=== PATIENT | female | born 1945 | race Caucasian/White ===

== ENCOUNTER 2022-11-10 13:20 | Outpatient (OUT) | payer MEDICARE, OTHER, SELFPAY ==
--- NOTE | 2022-11-10 13:58 | MM_ITS ---
Patient: RAMU MAR Exam Date: 11/10/2022 : 1945 Gender:F Ordering : DR Merlene Abbott M.D. Admission #: [id number] Family : Order #: [id number] CLICK HERE TO VIEW EXAM RADIOLOGY REPORT PROCEDURE: MM TOMOSYNTHESIS SCREENING BI COMPARISON: MG MAMM SCREEN 3D BENY CAD, 10/29/2021. MG MAMM SCREEN 3D BENY CAD, 10/22/2020. MG MAMM SCREEN BENY W CAD, 07/18/2019. MG MAMM BENY SCRN W CAD DIG, 03/16/2013. INDICATIONS: Screening mammogram Z12.31 Calculator Name NCI Breast Cancer Risk Assessment Tool 5 Year Breast Cancer Risk 3.70% Lifetime Breast Cancer Risk 7.90% Personal Breast Cancer No Personal Ovarian Cancer No Treatments None Family Cancers Sister with breast cancer at age 50; Aunt-maternal with breast cancer at age ~40; Aunt-paternal with breast cancer at age ~40; Brother with esophageal cancer at age 50. LOCATION: [facility] BREAST COMPOSITION: Scattered areas fibroglandular density. FINDINGS: DIAGNOSTIC CATEGORY 2--BENIGN FINDING: RIGHT BREAST: No significant suspicious finding. Scattered benign-appearing calcifications are present. No significant change has occurred. LEFT BREAST: No significant suspicious finding. Scattered benign-appearing calcifications are present. No significant change has occurred. RECOMMENDATIONS: ROUTINE MAMMOGRAM AND CLINICAL EVALUATION IN 12 MONTHS. PLEASE NOTE: A NORMAL MAMMOGRAM DOES NOT EXCLUDE THE POSSIBILITY OF BREAST CANCER. A CLINICALLY SUSPICIOUS PALPABLE LUMP SHOULD BE BIOPSIED. Dictated by: John Rdz M.D. on 11/10/2022 at 14:58 Approved by: John Rdz M.D. on 11/10/2022 at 15:00
== END 2022-11-10 13:21 | disposition home or self-care (01) ==
LOC: MAMMO 13:20
PROVIDERS: PCP Family Medicine; Visit Provider Family Medicine
DX: Z12.31 Encounter for screening mammogram for malignant neoplasm of breast (principal); Z80.3 Family history of malignant neoplasm of breast
CPT/HCPCS: 77063; 77067

== ENCOUNTER 2022-12-07 17:30 | Emergency (ER) | payer MEDICARE, OTHER, SELFPAY ==
[2022-12-07 17:37] VITALS: BP 169/70; PULSE 91; RESP 18; TEMP 36.9; O2SAT 97; BMI 38.4
--- NOTE | 2022-12-07 17:53 | PC.NURSE ---
PT STATES CLEANING ON THURSDAY AND WOKE UP WITH PAIN TO RIGHT NECK AND ARM
--- NOTE | 2022-12-07 18:07 | ED.UPPEXIN1 ---
Documented by User: LAUREN Suarez 12/07/22 18:17 HPI - Extremity Injury (Upper) General Chief Complaint: Extremity Injury, Upper Stated Complaint: Upper PAIN Right Side Time Seen by Provider: 12/07/22 17:44 Mode of arrival: walk-in Limitations: no limitations History of Present Illness HPI narrative: patient is a 77-year-old female with a history of diabetes and daily baby aspirin use, presents to the Emergency Room with concerns of right shoulder pain. Patient states symptoms started on Thursday after cleaning multiple cabinets reaching back. Patient notes pain over the right lateral shoulder with some pain radiating to her neck. She denies any chest pain or shortness of breath. Symptoms are notable be worse with abduction of the shoulder. She denies any fall trauma or injury. She denies any fevers or chills. She tried her spouse's baclofen without notable relief. Patient is established with local orthopedics. MD complaint: injury to: Reports right and shoulder Onset (ago): day(s) (3) Other injuries: Reports none Context: Reports other (denies injury, reports overuse right arm cleaning cabinets above her head and reaching backwards) Associated symptoms: Denies heard/felt popping sensation Related Data Previous Rx's Medication Instructions Recorded ibuprofen 600 mg tablet 600 mg PO TID PRN pain #30 tabs 12/07/22 Allergies Allergy/AdvReac Type Severity Reaction Status Date / Time Unable to Assess Allergy Verified 12/07/22 17:42 Review of Systems ROS Constitutional Denies: fever or chills Eyes Denies: change in vision Ears, nose, mouth, and throat Reports: neck pain; Denies: throat pain or throat swelling Cardiovascular Denies: chest pain or palpitations Respiratory Denies: shortness of breath or cough Gastrointestinal Denies: abdominal pain, nausea or vomiting Musculoskeletal Reports: neck pain and extremity pain (right lateral shoulder); Denies: extremity swelling Integumentary/Breast Denies: rash Neurological Denies: headache Psychiatric Denies: anxiety PFSH PFSH Social History Smoking status: Never smoker Exam Narrative Exam Narrative: Nurse's notes and vital signs reviewed. Patient is not hypoxic. General:? The patient appears well and in no apparent distress.? Patient is resting comfortably on cart. Skin:? Warm, dry, no pallor noted. Head:? Normocephalic, atraumatic Eye:? Normal conjunctiva Respiratory:? Patient is in no distress Musculoskeletal:? The rright shoulder shows no obvious deformity.? There was no significant swelling noted.positive tenderness to the AC joint which was mild. No palpable crepitus.?? The patient had limited ROM due to pain with abduction past ninety degrees and positive painful arc..?? The patient had tenderness noted to the right trapezius,, ac joint and lateral shoulder to the deltoid insertion. She denied pain into the forearm wrist or hand. She denies any numbness or tingling. Positive Neer and Hawkings noted,fires rotator cuff but limited strength testing secondary to pain, ultimately it is five over five. No pain with stressing biceps or triceps. 5/5. Equal financial controller strength noted The patient had no tenderness in the anatomical snuff box.? The patient had no pain with axial loading of the thumb.? Pulses are intact at brachial and radial 2+.? There was no deficit at the elbow. The patient has normal capillary refill to all distal digits. The patient has no evidence of cyanosis or mottling. The patient is able to flex and extend all digits without difficulty. Neurological:? A&O x4, normal sensory, normal motor Psychiatric:? Cooperative Constitutional Vital Signs, click to edit/add: Last Vital Signs Temp 98.5 F 12/07/22 17:37 Pulse 91 H 12/07/22 17:37 Resp 18 12/07/22 17:37 BP 169/70 H 12/07/22 17:37 Pulse Ox 97 12/07/22 17:37 O2 Del Method Room Air 12/07/22 17:37 Course Vital Signs Vital signs: Vital Signs Temperature 98.5 F 12/07/22 17:37 Pulse Rate 91 H 12/07/22 17:37 Respiratory Rate 18 12/07/22 17:37 Blood Pressure 169/70 H 12/07/22 17:37 Pulse Oximetry 97 12/07/22 17:37 Oxygen Delivery Method Room Air 12/07/22 17:37 Temperature 98.5 F 12/07/22 17:37 Pulse Rate 91 H 12/07/22 17:37 Respiratory Rate 18 12/07/22 17:37 Blood Pressure 169/70 H 12/07/22 17:37 Pulse Oximetry 97 12/07/22 17:37 Oxygen Delivery Method Room Air 12/07/22 17:37 MDM - Extremity Injury (Upper) MDM Narrative Medical decision making narrative: discussed patient's overuse likely bursitis with reproducible pain on shoulder range of motion and exam. Tenderness to the before meals joint, patient denies fall trauma injury or fever. We discussed anti-inflammatory use over to Titus's given her history of diabetes and insulin use. Patient reports her sugars have been doing okay. Patient without clinical exam findings concerning for infection. We discussed gentle passive range of motion exercises to encourage range of motion of the shoulder and avoid a frozen shoulder. Patient agreeable to Toradol IM here, Norflex injection and will start a regimen of Tylenol and to try and 600 mg moting with food pending follow-up with her orthopedic clinic. x-ray not clinically indicated today and patient agreeable The patient is to followup with primary care physician in next 2-3 days or to return to the emergency department should any of the signs or symptoms worsen or new symptoms develop. Patient had questions answered. The patient agrees with the following Diagnosis and Treatment plan and the patient will be discharged home.? Discharge Plan Discharge Chief Complaint: Extremity Injury, Upper Clinical Impression: Acute pain of right shoulder, Acute bursitis of right shoulder Patient Disposition: Home, Self-Care Time of Disposition Decision: 18:08 Condition: Good Mode of Transportation: Private Vehicle Prescriptions / Home Meds: New ibuprofen 600 mg tablet 600 mg PO TID PRN (Reason: pain) Qty: 30 0RF Instructions: Shoulder Bursitis (ED) Stand Alone Forms: Portal Instructions Referrals: Merlene Abbott MD [Primary Care Provider] - 1 week Anthony Shabazz PA [Emergency Midlevel Provider] - 12/10/22 Discharge Date/Time: 12/07/22 18:23 Documented by User: Shnaice Dominguez MD 12/08/22 20:38 HPI - Extremity Injury (Upper) General Chief Complaint: Extremity Injury, Upper Stated Complaint: Upper PAIN Right Side Time Seen by Provider: 12/07/22 17:44 Related Data Previous Rx's Medication Instructions Recorded ibuprofen 600 mg tablet 600 mg PO TID PRN pain #30 tabs 12/07/22 Allergies Allergy/AdvReac Type Severity Reaction Status Date / Time Unable to Assess Allergy Verified 12/07/22 17:42 PFSH PFSH Social History Smoking status: Never smoker Exam Constitutional Vital Signs, click to edit/add: Last Vital Signs Temp 98.5 F 12/07/22 17:37 Pulse 91 H 12/07/22 17:37 Resp 18 12/07/22 17:37 BP 169/70 H 12/07/22 17:37 Pulse Ox 97 12/07/22 17:37 O2 Del Method Room Air 12/07/22 17:37 Course Vital Signs Vital signs: Vital Signs Temperature 98.5 F 12/07/22 17:37 Pulse Rate 91 H 12/07/22 17:37 Respiratory Rate 18 12/07/22 17:37 Blood Pressure 169/70 H 12/07/22 17:37 Pulse Oximetry 97 12/07/22 17:37 Oxygen Delivery Method Room Air 12/07/22 17:37 Temperature 98.5 F 12/07/22 17:37 Pulse Rate 91 H 12/07/22 17:37 Respiratory Rate 18 12/07/22 17:37 Blood Pressure 169/70 H 12/07/22 17:37 Pulse Oximetry 97 12/07/22 17:37 Oxygen Delivery Method Room Air 12/07/22 17:37 MDM - Extremity Injury (Upper) MDM Narrative Medical decision making narrative: discussed patient's overuse likely bursitis with reproducible pain on shoulder range of motion and exam. Tenderness to the before meals joint, patient denies fall trauma injury or fever. We discussed anti-inflammatory use over to Qureshi's given her history of diabetes and insulin use. Patient reports her sugars have been doing okay. Patient without clinical exam findings concerning for infection. We discussed gentle passive range of motion exercises to encourage range of motion of the shoulder and avoid a frozen shoulder. Patient agreeable to Toradol IM here, Norflex injection and will start a regimen of Tylenol and to try and 600 mg moting with food pending follow-up with her orthopedic clinic. x-ray not clinically indicated today and patient agreeable The patient is to followup with primary care physician in next 2-3 days or to return to the emergency department should any of the signs or symptoms worsen or new symptoms develop. Patient had questions answered. The patient agrees with the following Diagnosis and Treatment plan and the patient will be discharged home.? Attending physician attestation I have reviewed the mid-level documentation, agree with the documentation, medical decision making and treatment plan as outlined by the mid-level provider. Discharge Plan Discharge Chief Complaint: Extremity Injury, Upper Clinical Impression: Acute pain of right shoulder, Acute bursitis of right shoulder Patient Disposition: Home, Self-Care Time of Disposition Decision: 18:08 Condition: Good Mode of Transportation: Private Vehicle Prescriptions / Home Meds: New ibuprofen 600 mg tablet 600 mg PO TID PRN (Reason: pain) Qty: 30 0RF Instructions: Shoulder Bursitis (ED) Stand Alone Forms: Portal Instructions Referrals: Merlene Abbott MD [Primary Care Provider] - 1 week Anthony Shabazz PA [Emergency Midlevel Provider] - 12/10/22 Discharge Date/Time: 12/07/22 18:23
[2022-12-07] MEDS: ORPHENADRINE 60 MG/ 2 ML VIAL IM (18:18)
[2022-12-07] MEDS: KETOROLAC TROMETHAMINE 60 MG/2 ML VIAL IM (18:18)
== END 2022-12-07 18:23 | disposition home or self-care (01) ==
PROVIDERS: Emergency Provider Emergency Medicine; PCP Family Medicine
DX: M75.51 Bursitis of right shoulder (principal); M25.511 Pain in right shoulder; Z79.82 Long term (current) use of aspirin; E11.9 Type 2 diabetes mellitus without complications
CPT/HCPCS: 96372; 99284

== ENCOUNTER 2023-04-23 15:50 | Outpatient (REF) | payer MEDICARE, OTHER, SELFPAY ==
[2023-04-28 11:08] LABS: Age Gdln ACOG Testing Note (.); Pap IG (Image Guided) Note (.)
== END 2023-04-23 15:51 | disposition home or self-care (01) ==
LOC: LAB 15:50
PROVIDERS: PCP Family Medicine; Visit Provider Physician Assistant
DX: Z01.419 Encounter for gynecological examination (general) (routine) without abnormal findings (principal)
CPT/HCPCS: G0145

== ENCOUNTER 2023-05-18 12:54 | Outpatient (OUT) | payer MEDICARE, OTHER, SELFPAY ==
--- OUTSIDE RECORDS SUMMARY | 2023-05-18 12:56 | XMS_ITS | CCD ---
Author Name Unknown Address [address] [facility] [address] [place] [address] Organization [facility] Care Team Providers Care Lead Pressman [employer] Name Role Phone PHYSICIAN, DEFAULT Admitting Unavailable PHYSICIAN, DEFAULT Attending Unavailable Merlene Abbott Unavailable GRANT BAPTISTE Admitting Unavailable NEO, DR MERLENE Reed Primary Care Unavailable GRANT BAPTISTE Attending Unavailable GRANT BAPTISTE Consulting Unavailable NEO, DR MERLENE Reed Primary Care Unavailable HANG ., DR KIM Attending Unavailabl e HANG ., DR KIM Consulting Unavailabl e HANG ., DR KIM Admitting Unavailque e BURLINGTON, DR NICOLE Galvan Consulting Unavailable ABBOTT, DR MERLENE Reed Attending Unavailable ABBOTT, DR MERLENE Reed Consulting Unavailable ABBOTT, DR MERLENE Reed Primary Care Unavailable NEO, DR MERLENE Reed Admitting Unavailable NATALIE ROSS Attending Unavailable Allergies Allergy Classification Reported Allergen(s) Allergy Type Date of Onset Reaction(s) Facility (4 sources) Amoxicillin / Clavulanate Drug Allergy Unknown [facility] Other (8 sources) Penicillin Drug Allergy Unknown [facility] Other (8 sources) Sulfamethoxazole / Trimethoprim Drug Allergy Unknown [facility] Other (8 sources) Sulfonamides (Antibiotic) Propensity to adverse reactions Unknown [facility] Other (5 sources) Amoxicillin / Clavulanate; Translations: [Augmentin] Drug Allergy 10-07-19 Unknown [facility] (1 source) Sulfonamides (Antibiotic) Drug allergy (disorder) 10-07-19 15 [facility] (3 sources) Angiotensin-convert ing enzyme inhibitor agent Drug allergy Unknown [facility] Other (3 sources) Substance with penicillin structure and antibacterial mechanism of action (substance) Drug allergy 02-24-20 13 Unknown [facility] Other (3 sources) Substance with sulfonamide structure and antibacterial mechanism of action (substance) Drug allergy SULFA DRU[facility] Other (3 sources) FAUSTINO inhibitor use, contraindication Propensity to adverse reactions 03-23-20 14 Comment:advers e rxn/side effects [facility] Other (3 sources) Allergies Reconciled Propensity to adverse reactions Unknown [facility] Other (3 sources) patient allergy list reviewed by nurse or physicia Propensity to adverse reactions 04-10-20 Comment:Done [facility] Other Medications Current Medications Medication Drug Class(es) Dates Sig (Normalized) Sig (Original) alendronic acid 35 mg oral tablet (8 sources) Bisphosphonate take 1 tablet by mouth once daily Alendronate Sodium 35 MG 1 tablet 30 minutes before the first food, beverage or medicine of the day with plain water Orally Active atorvastatin 20 mg oral tablet (8 sources) HMG-CoA Reductase Inhibitor Start: 06-27-2022 take 1 tablet by mouth every twenty-four hours Atorvastatin Calcium 20 MG 1 tablet Orally Once a day for 90 day(s) Jun, Active ciprofloxacin 250 mg oral tablet (2 sources) Quinolone Antimicrobial Start: 01-30-2023 take 1 tablet by mouth every twelve hours Ciprofloxacin HCl 250 MG 1 tablet Orally every 12 hrs for 5 day(s) Jan, Active glipiZIDE 5 mg oral tablet (6 sources) Sulfonylurea Start: 12-08-2022 take 1 tablet by mouth once daily 30 minutes before breakfast glipiZIDE 5 MG 1 tablet 30 minutes before breakfast Orally Once a day for 90 days Nov, Active glipiZIDE 5 MG T LUCIO 1 TABLET TWICE A DAY for 90 Active hydroCHLOROthiazide 12.5 mg / losartan potassium 50 mg oral tablet (8 sources) Thiazide Diuretic, Angiotensin 2 Receptor Megan take 1 tablet by mouth every twenty-four hours Losartan Potassium-HCTZ 50-12.5 MG 1 tablet Orally Once a day Active 3 ml insulin degludec 100 unt/ml pen injector (8 sources) Insulin Analog inject 38 [IU] by subcutaneous injection once daily Tresiba FlexTouch 100 UNIT/ML INJECT 38 UNITS SUBCUTANEOUSLY ONCE A DAY for 40 Active Tresiba FlexTouc h 100 UNIT/ML INJECT 38 UNITS ONCE DAILY for 39 Active levothyroxine sodium 0.1 mg oral tablet (8 sources) l-Thyroxine Levothyroxine So dium 100 MCG TAKE 1 TABLET DAILY for 90 Active metFORMIN hydrochloride 1000 mg oral tablet (6 sources) Biguanide Start: 12-08-2022 take 1 tablet by mouth twice daily metFORMIN HCl 1000 MG 1 tablet Orally twice daily for 90 days Nov, Active take 1 tablet by joe th every twenty-four hours metFORMIN HCl 1000 MG 1 tablet with a meal Orally Once a day Active pioglitazone 30 mg oral tablet (8 sources) Peroxisome Proliferator Receptor alpha Agonist, Peroxisome Proliferator Receptor gamma Agonist, Thiazolidinedione take 1 tablet by mouth once daily Pioglitazone HCl 30 MG TAKE 1 TABLET BY MOUTH EVERY DAY for 90 Active Completed/Discontinued Medications Medication Drug Class(es) Dates Sig (Normalized) Sig (Original) meclizine hydrochloride 25 mg oral tablet (8 sources) Antiemetic Start: 07-11-2022 take 1 tablet by mouth every eight hours as needed Meclizine HCl 25 MG 1 tablet as needed Orally q8h prn for 10 days Jul, Not-Taking Problems Active Problems Problem Classification Problem Date Documented Da te Episodic/Chronic Administrative/social admission (3 sources) Informing health home care liaison of test result; Translations: [Person consulting for explanation of examination or test findings] Episodic Diabetes mellitus with complications (12 sources) Hyperglycemia due to type 2 diabetes mellitus; Translations: [Type 2 diabetes mellitus with hyperglycemia] Chronic Diabetes mellitus without complication (3 sources) Type 2 diabetes mellitus without complication; Translations: [Diabetes mellitus without mention of complication, type II or unspecified type, not stated as uncontrolled] Chronic Disorders of lipid metabolism (15 sources) Dyslipidemia; Translations: [Hyperlipidemia, unspecified] Chronic Essential hypertension (12 sources) Essential hypertension; Translations: [Essential (primary) hypertension] Chronic Menopausal disorders (1 source) Hormone replacement therapy; Translations: [HORMONE REPLACEMENT THERAPY] Onset: 07-07-2022 Episodic Other aftercare (1 source) [facility]DC (current) use of aspirin; Translations: [MUSIC ARRANGER CURRENT USE OF ASPIRIN] Onset: 02-27-2023 Episodic Other aftercare (1 source) [facility]DC (current) use of insulin; Translations: [MUSIC ARRANGER CURRENT USE OF INSULIN] Onset: 07-07-2022 Episodic Other aftercare (1 source) [facility]DC (current) use of oral hypoglycemic drugs; Translations: [FCI USE ORAL HYPOGLYCEMIC DX] Onset: 07-07-2022 Episodic Other bone disease and musculoskeletal deformities (8 sources) Osteopenia; Translations: [Other specified disorders of bone density and structure, unspecified site] Episodic Other bone disease and musculoskeletal deformities (3 sources) Bone density finding; Translations: [Other specified disorders of bone density and structure, unspecified site] Episodic Other circulatory disease (3 sources) Elevated blood-pressure reading without diagnosis of hypertension; Translations: [Elevated blood-pressure reading, without diagnosis of hypertension] Episodic Other connective tissue disease (3 sources) Acquired trigger finger; Translations: [Trigger finger, right ring finger] Episodic Other injuries and conditions due to external causes (3 sources) History of fall; Translations: [History of falling] Episodic Other nutritional; endocrine; and metabolic disorders (6 sources) Obese class II; Translations: [Body mass index (BMI) 38.0-38.9, adult] Resolved: 04-08-2021 Chronic Other nutritional; endocrine; and metabolic disorders (6 sources) Body mass index 30+ - obesity; Translations: [Body mass index (BMI) 30.0-30.9, adult] Onset: 07-28-2018 Resolved: 04-08-2021 Chronic Other skin disorders (3 sources) Rash and other nonspecific skin eruption; Translations: [RASH OTH NONSPECIFIC SKIN ERUPTION] Onset: 07-05-2022 Episodic Other upper respiratory infections (3 sources) Chronic sinusitis; Translations: [Chronic sinusitis, unspecified] Chronic Residual codes; unclassified (11 sources) Postmenopausal state; Translations: [Asymptomatic menopausal state] Episodic Residual codes; unclassified (3 sources) Family history of stroke; Translations: [Family history of stroke] Episodic Residual codes; unclassified (3 sources) Family history of breast cancer; Translations: [Family history of malignant neoplasm of breast] Episodic Residual codes; unclassified (3 sources) Tobacco user; Translations: [Tobacco use] Episodic Thyroid disorders (12 sources) Hypothyroidism; Translations: [Hypothyroidism, unspecified] Chronic Viral infection (9 sources) Herpes zoster; Translations: [Other postherpetic nervous system involvement] Onset: 07-07-2022 Episodic Past or Other Problems Problem Classification Problem Date Documented Da te Episodic/Chronic Abdominal pain (6 sources) Left lower quadrant pain; Translations: [Left lower quadrant pain] Onset: 08-03-2013 Resolved: 04-09-2021 Episodic Diseases of mouth; excluding dental (3 sources) Sialoadenitis; Translations: [Sialoadenitis] Onset: 07-28-2018 Episodic Disorders of teeth and jaw (3 sources) Jaw pain; Translations: [Jaw pain] Onset: 07-28-2018 Episodic Genitourinary symptoms and ill-defined conditions (3 sources) Dysuria; Translations: [Dysuria] Onset: 08-03-2013 Resolved: 04-08-2021 Episodic Menopausal disorders (6 sources) Postmenopausal bleeding; Translations: [Postmenopausal bleeding] Onset: 04-26-2014 Resolved: 04-08-2021 Chronic Other aftercare (3 sources) History and physical examination, follow-up; Translations: [Encounter for follow-up examination after completed treatment for conditions other than malignant neoplasm] Resolved: 01-03-2016 Episodic Other connective tissue disease (3 sources) Medial epicondylitis of left humerus; Translations: [Medial epicondylitis, left elbow] Onset: 12-27-2014 Resolved: 04-08-2021 Episodic Other connective tissue disease (3 sources) Pain in limb; Translations: [Pain in right lower leg] Onset: 12-15-2017 Episodic Other female genital disorders (3 sources) Hypertrophy of uterus; Translations: [Hypertrophy of uterus] Onset: 05-14-2014 Resolved: 01-03-2016 Episodic Other gastrointestinal disorders (3 sources) Functional diarrhea; Translations: [Functional diarrhea] Resolved: 04-08-2021 Episodic Other non-traumatic joint disorders (3 sources) Arthralgia of the upper arm; Translations: [Pain in left elbow] Onset: 02-26-2015 Episodic Other nutritional; endocrine; and metabolic disorders (3 sources) Obesity; Translations: [Obesity, unspecified] Resolved: 05-01-2021 Chronic Other nutritional; endocrine; and metabolic disorders (3 sources) Overweight; Translations: [Overweight] Resolved: 04-08-2021 Episodic Other screening for suspected conditions (not mental disorders or infectious disease) (3 sources) Imaging of genitourinary system abnormal; Translations: [Nonspecific (abnormal) findings on radiological and other examination of genitourinary organs] Onset: 09-27-2014 Resolved: 01-07-2017 Chronic Other screening for suspected conditions (not mental disorders or infectious disease) (8 sources) Encounter for screening mammogram for malignant neoplasm of breast; Translations: [Electrocardiogram abnormal] Onset: 07-29-2018 Episodic Other upper respiratory infections (3 sources) Acute sinusitis; Translations: [Acute sinusitis, unspecified] Onset: 07-27-2014 Episodic Residual codes; unclassified (1 source) Family history of malignant neoplasm of breast; Translations: [FAMILY HX MALIG NEOPLASM OF BREAST] Onset: 2021 Episodic Screening and history of mental health and substance abuse codes (3 sources) Encounter for screening examination for other mental health and behavioral disorders; Translations: [Mental health screening] Resolved: 04-08-2021 Episodic Results Test Name Value Interpretation Reference Range Facil ity CBC AUTO DIFFon 09-24-2022 BASO # 0.0 103/ul Normal 0.0-0.1 [facility] Comment on above: Performed By: #### C BC #### [facility] [address] [address] [address] Makenna Smith Basophils/100 WBC (Bld) 0.8 % Normal 0.2-2.0 [facility] Comment on above: Performed By: #### C BC #### [facility] [address] [address] [address] Makenna Smith EO # 0.7 103/ul Normal 0.0-0.7 [facility] Comment on above: Performed By: #### C BC #### [facility] [address] [address] [address] Makenna Smith Eosinophils/100 WBC (Bld) 14.4 % Critically high 0.9-7.0 [facility] Comment on above: Performed By: #### C BC #### [facility] [address] [address] [address] Makenna Smith Erythrocyte distribution width (RBC) [Ratio] 14.2 % Normal 11.0-15.0 [facility] Comment on above: Performed By: #### C BC #### [facility] [address] [place] [address] Dr. Makenna Smith Hematocrit (Bld) [Volume fraction] 36.1 % Normal 36.0-48.0 [facility] Comment on above: Performed By: #### C BC #### [facility] [address] [place] [address] Dr. Makenna Smith Hemoglobin (Bld) [Mass/Vol] 11.9 g/dL Critically low 12.0-16.0 [facility] Comment on above: Performed By: #### C BC #### [facility] [address] [place] [address] Dr. Makenna Smith IG # 0.03 10e3/ul Normal 0.00-0.03 [facility] Comment on above: Performed By: #### C BC #### [facility] [address] [place] [address] Dr. Makenna Smith IG % 0.6 % Critically high 0.0-0.[address] [facility] Comment on above: Performed By: #### C BC #### [facility] [address] [place] [address] Dr. Makenna Smith LYMPH # 1.4 103/ul Normal 1.2-3.8 [facility] Comment on above: Performed By: #### C BC #### [facility] [address] [place] [address] Dr. Makenna Smith Lymphocytes/100 WBC (Bld) 27.3 % Normal 20.5-60.0 [facility] Comment on above: Performed By: #### C BC #### [facility] [address] [place] [address] Dr. Makenna Smith MANUAL DIFF REQ NO Normal [facility] Comment on above: Performed By: #### C BC #### [facility] [address] [place] [address] Dr. Makenna Smith MCH (RBC) [Entitic mass] 30.4 pg Normal 26.7-34.0 [facility] Comment on above: Performed By: #### C BC #### [facility] [address] [place] [address] Dr. Makenna Smith MCHC (RBC) [Mass/Vol] 33.0 g/dL Normal 29.9-35.2 [facility] Comment on above: Performed By: #### C BC #### [facility] [address] [address] [address] Makenna Smith MCV (RBC) [Entitic vol] 92.1 fL Normal 81.0-99.0 [facility] Comment on above: Performed By: #### C BC #### [facility] [address] [place] [address] Dr. Makenna Smith MONO # 0.3 103/ul Normal 0.3-0.8 [facility] Comment on above: Performed By: #### C BC #### [facility] [address] [place] [address] Dr. Makenna Smith Monocytes/100 WBC (Bld) 6.4 % Normal 1.7-12.0 [facility] Comment on above: Performed By: #### C BC #### [facility] [address] [place] [address] Dr. Makenna Smith NEUT # 2.5 103/ul Normal 1.4-6.5 [facility] Comment on above: Performed By: #### C BC #### [facility] [address] [place] [address] Dr. Makenna Smith Neutrophils/100 WBC (Bld) 50.5 % Normal 43.0-75.0 [facility] Comment on above: Performed By: #### C BC #### [facility] [address] [place] [address] Dr. Makenna Smith Platelet mean volume (Bld) [Entitic vol] 10.9 fL Normal 9.5-13.5 [facility] Comment on above: Performed By: #### C BC #### [facility] [address] [place] [address] Dr. Makenna Smith PLT 141 103/ul Critically low 150-450 [facility] Comment on above: Performed By: #### C BC #### [facility] [address] [place] [address] Dr. Makenna Smith RBC 3.92 106/ul Critically low 4.20-5.[address] [facility] Comment on above: Performed By: #### C BC #### [facility] [address] [place], [place] [address] Dr. Makenna Smith WBC 5.0 103/ul Normal 4.0-11.0 [facility] Comment on above: Performed By: #### C BC #### [facility] [id number] Makenna Smith MG MAMM SCREEN 3D BENY CADon 10-29-2021 MG MAMM SCREEN 3D BENY CAD Patient: RAMU MAR Exam Date: 10/29/2021 : 1945 Gender:F Ordering : DR JULIO MAURICIO . Admission #: [id number] Family : Order #: [id number] CLICK HERE TO VIEW EXAM RADIOLOGY REPORT PROCEDURE: MAMMOGRAM SCREENING 3D BILATERAL CAD COMPARISON: MG MAMM SCREEN BENY W CAD, 07/18/2019. MG MAMM SCREEN 3D BENY CAD, 10/22/2020. INDICATIONS: Screening mammography Calculator Name NCI Breast Cancer Risk Assessment Tool 5 Year Breast Cancer Risk 3.70% Lifetime Breast Cancer Risk 8.90% Personal Breast Cancer No Personal Ovarian Cancer No Treatments None Family Cancers Sister with breast cancer at age 50; Aunt-maternal with breast cancer at age 40; Aunt-paternal with breast cancer at age 40. LOCATION: [facility] BREAST COMPOSITION: Scattered areas fibroglandular density. FINDINGS: DIAGNOSTIC CATEGORY 2--BENIGN FINDING. NO CHANGE FROM COMPARISON. Scattered benign-appearing calcifications are present. RIGHT BREAST: No significant suspicious finding. LEFT BREAST: No significant suspicious finding. RECOMMENDATIONS: ROUTINE MAMMOGRAM AND CLINICAL EVALUATION IN 12 MONTHS. PLEASE NOTE: A NORMAL MAMMOGRAM DOES NOT EXCLUDE THE POSSIBILITY OF BREAST CANCER. A CLINICALLY SUSPICIOUS PALPABLE LUMP SHOULD BE BIOPSIED. Dictated by: Nicole Aggarwal MD on 10/29/2021 at 13:56 Approved by: Nicole Aggarwal MD on 10/29/2021 at 14:10 Normal [facility] Vital Signs Date Time Vital Sign Value Performing Clinician Facility 09-18-2022 15:00-0400 Body height 158.75 cm Merlene Neo Other [facility] Other 09-18-2022 15:00-0400 Body mass index (BMI) [Ratio] 37.97 kg/m2 Merlene Abbott Other [facility] Other 09-18-2022 15:00-0400 Body weight 95.71 kg Merlene Abbott Other [facility] Other 09-18-2022 15:00-0400 Diastolic blood pressure 68 mm[Hg] Merlene Abbott Other [facility] Other 09-18-2022 15:00-0400 SaO2% (BldA) [Mass fraction] 97 % Merlene Abbott Other [facility] Other 09-18-2022 15:00-0400 Systolic blood pressure 132 mm[Hg] Merlene Abbott Other [facility] Other Encounters Encounter Date Encounter Type Care Provider Facility Start: 04-23-2023 End: 04-23-2023 ambulatory NATALIE ROSS Not Available Start: 02-16-2023 End: 02-16-2023 ambulatory Merlene Abbott Other [facility] Other Start: 02-16-2023 Telephone encounter Merlene Abbott [facility] Start: 01-30-2023 End: 01-30-2023 ambulatory Merlene Abbott Other [facility] Other Start: 01-30-2023 Telephone encounter Merlene Abbott [facility] Start: 12-08-2022 End: 12-08-2022 ambulatory Merlene Abbott Other [facility] Other Start: 12-08-2022 Telephone encounter Merlene Abbott [facility] Start: 09-26-2022 End: 09-26-2022 ambulatory Merlene Abbott Other [facility] Other Start: 09-26-2022 Telephone encounter Merlene Abbott [facility] Start: 09-24-[address] MERLENE ABBOTT Facil ity:[facility] Start: 09-18-2022 End: 09-18-2022 ambulatory Merlene Abbott Other [facility] Other Start: 09-18-2022 Patient encounter procedure Merlene Abbott [facility] Start: 07-10-2022 End: 07-10-2022 ambulatory Merlene Abbott Other [facility] Other Start: 07-10-2022 Telephone encounter Merlene Abbott [facility] Start: 07-05-2022 End: 07-05-2022 ambulatory GRANT BAPTISTE Facility:[facility] Start: 06-27-2022 End: 06-27-2022 ambulatory Merlene Abbott Other [facility] Other Start: 06-27-2022 Telephone encounter Merlene Abbott [facility] Start: 06-18-2022 End: 06-18-2022 ambulatory Merlene Abbott Other [facility] Other Start: 06-18-2022 Telephone encounter Merlene Abbott [facility] Start: 04-30-2022 Adult health examination Mariangel Abbott Other [facility] Other Start: 10-29-2021 End: 10-30-[address] MERLENE ABBOTT Facility:[facility] Start: 05-01-2021 End: 05-01-2021 Gynecological examination normal Merlene Abbott Other [facility] Other Start: 08-03-2018 End: 08-04-2018 Patient encounter procedure DEFAULT PHYSICIAN Facility:[facility] Procedures Date Procedure Procedure Detail Performing Clinician Start: 03-23-2014 End: 04-08-2021 Screening mammography Merlene Abbott Other Start: 02-23-2013 End: 04-08-2021 General examination of patient Merlene Abbott Other End: 04-08-2021 Depression screening Merlene Abbott Other End: 04-08-2021 Screening for malignant neoplasm of breast Merlene Abbott Other Screening for malign ant neoplasm of breast Merlene Abbott Other End: 04-08-2021 Screening for osteoporosis Merlene Abbott Other End: 04-08-2021 Viral screening Merlene Abbott Other Immunizations Immunization Date Immunization Notes Care Provider Fa cili 10-24-2021 COVID-19 Vaccine Pfi zer - Documentation Purposes Only Merlene Abbott Other [facility] Other 02-25-2021 COVID-19 Vaccine Pfi zer - Documentation Purposes Only Merlene Abbott Other [facility] Other 07-10-2020 COVID-19 Vaccine Pfi zer - Documentation Purposes Only Merlene Abbott Other [facility] Other 06-19-2020 COVID-19 Vaccine Pfi zer - Documentation Purposes Only Merlene Abbott Other [facility] Other 04-10-2015 pneumococcal conjuga te vaccine, 13 valent Merlene Abbott Other [facility] Other 04-10-2015 pneumococcal Conjuga te, unspecified formulation; Translations: [Need for prophylactic vaccination against Streptococcus pneumoniae (pneumococcus)] Merlene Abbott Other [facility] Other 02-23-2013 tetanus and diphther ia toxoids, adsorbed, preservative free, for adult use (5 Lf of tetanus toxoid and 2 Lf of diphtheria toxoid) Merlene Abbott Other [facility] Other 10-17-2008 pneumococcal polysaccharide vaccine, 23 valent Merlene Abbott Other [facility] Other Payers Date Payer Category Payer Medicare [id number] 1957 Medicare [id number] 2.1 [id number] 1945 Unknown [id number] [id number] 1945 Unknown [id number] [id number] 1945 Unknown [id number] [id number] [id number] 1945 Unknown [id number] 2.16.84 [id number] 1945 Unknown [id number] Unknown Social History Date Type Detail Facility Sex Assigned At [facility] Other Medical Equipment Procedure Code Equipment Code Equipment Origin al Text Equipment Identifier Dates Start: 08-27-2022 Evaluation note 09-18-2022 Note Date & Type Note Facility 09-18-2022 Evaluation note Encounter Date Diagnosis Assessment Notes September, Medicare annual wellness visit, subsequent (ICD-10 - Z00.00) Personalized health advice was given to the beneficiary including a written plan for screenings discussed and provided. Advanced care planning reviewed and/or information given as requested. Additional counseling was provided here today in regards to diabetes. The above visit was done by Dr. Abbott. Document reviewed and amended by provider signed below. September, Diabetes mellitus with hyperglycemia (ICD-10 - E11.65) Goal: Maintain A1c below 7.0% by being compliant with prescribed medications, diet & exercise plan prior to f/u visit. Laboratory results were reviewed with patient. STATUS:continou s September, Essential hypertension (ICD-10 - I10) GOAL: Maintain BP < 140/90. STATUS: achieved. TIME FRAME: Lifetime goal. Barriers: Non- identifed. Continue current regimen and a low Na+ diet. Regular CV exercise also encouraged. September, Adult hypothyroidism (ICD-10 - E03.9) chronic - due for recheck labs September, Dyslipidemia (ICD-10 - E78.5) Check lipid panel - chronic statin use September, Encounter for screening mammogram for malignant neoplasm of breast (ICD-10 - Z12.31) due in October [facility] Other Evaluation note Note Date & Type Note Facility Evaluation note No Information [facility] Other History general Narrative - Reported Note Date & Type Note Facility History general Narrative - Reported Type Medical History Diabetes mellitus with hyperglyc [facility] Medical History Dyslipidemia Medical History Osteopenia Medical History Essential hypertension Medical History Post-menopausal Medical History Adult hypothyroidism Surgical History D&C 2002 Surgical History Surgical History HYSTERECTOMY 2014 Hospitalization History SEE SURGICAL HX [facility] Other Summary Purpose Family History No Family History Records FoundNo Family History Records FoundNo Family History Records Found Advance Directives No Advanced Directives Records FoundNo Advanced Directives Records FoundNo Advanced Directives Records Found Additional Source Comments INFORMATION SOURCE (unrecogn ized section and content) DATE CREATED AUTHOR 08/07/2018 [facility] DATE CREATED AUTHOR AUTHOR'S ORGANIZ ATION 09/24/2022 [facility] DATE CREATED AUTHOR AUTHOR'S ORGANIZ ATION 04/25/2023 [facility] EPIC REASON FOR VISIT (unrecogniz ed section and content) prescription refillNo Inform ationmessageWellnesslabsmedication questionsmessagemessage FOR RECORDS PERTAINING TO PATIENTS WHO ARE OR HAVE BEEN ENROLLED IN A CHEMICAL DEPENDENCY/SUBSTANCEABUSE PROGRAM, SOME INFORMATION MAY BE OMITTED. This clinical summary was aggregated from multiple sources. Caution should be exercised in using it in the provision of clinical care. This summary normalizes information from multiple sources, and as a consequence, information in this document may materially change the coding, format and clinical context of patient data. In addition, data may be omitted in some cases. CLINICAL DECISIONS SHOULD BE BASED ON THE PRIMARY CLINICAL RECORDS. [email or web address] provides no warranty or guarantee of the accuracy or completeness of information in this document.
--- NOTE | 2023-05-18 12:58 | XR_ITS ---
[place] [id number] Patient Name: RAMU MAR MRN: [id number] date: 1945 Sex: F Assigned Patient Location: [facility] Current Patient Location: [facility] Accession/Order Number: [id number] Exam Date: 05/18/2023 13:05 Report Date: 05/18/2023 13:38 At the request of: NATALIE ROSS Procedure: XR DEXA axial skeleton EXAMINATION: XR DEXA axial skeleton, 05/18/2023 1:05 PM EST HISTORY: Asymptomatic Menopausal State Z78.0 COMPARISON: 2020, 2017, 2011, 2008 TECHNIQUE: Dual-energy X-ray absorptiometry (DEXA) bone density study performed for the axial skeleton. HISTORY: Asymptomatic Menopausal State Z78.0 FINDINGS: Bone mineral density AP spine L1-L4 measures 1.134 g/sq cm. T score -0.5. WHO classification: Normal. Lowest bone mineral density right femoral neck measures 0.828 g/sq cm. T score -1.5. WHO classification: Osteopenia XR/XR DEXA axial skeleton IMPRESSION: Osteopenia. Moderate fracture risk Electronically authenticated by: NICOLE MEJIA Date: 05/18/2023 13:38
== END 2023-05-18 12:55 | disposition home or self-care (01) ==
LOC: RAD 12:54
PROVIDERS: PCP Family Medicine; Visit Provider Physician Assistant
DX: Z78.0 Asymptomatic menopausal state (principal); M85.80 Other specified disorders of bone density and structure, unspecified site
CPT/HCPCS: 77080

== ENCOUNTER 2023-06-05 09:52 | Outpatient (OUT) | payer MEDICARE, OTHER, SELFPAY ==
--- OUTSIDE RECORDS SUMMARY | 2023-06-05 09:59 | XMS_ITS | CCD ---
Author Name Unknown Address [address] [place] [address] Organization [facility] Care Team Providers Care Wrapper Sheeter Name Role Phone PHYSICIAN, DEFAULT Admitting Unavailable PHYSICIAN, DEFAULT Attending Unavailable Merlene Abbott Unavailable GRANT BAPTISTE Admitting Unavailable NEO, DR MERLENE Reed Primary Care Unavailable GRANT BAPTISTE Attending Unavailable GRANT BAPTISTE Consulting Unavailable NEO, DR MERLENE Reed Primary Care Unavailable HANG ., DR KIM Attending Unavailabl nayeli MAURICIO ., DR KIM Consulting Unavailabl e HANG ., DR KIM Admitting Unavailabl e MORROW, DR NICOLE Galvan Consulting Unavailable ABBOTT, DR MERLENE Reed Attending Unavailable ABBOTT, DR MERLENE Reed Consulting Unavailable NEO, DR MERLENE Reed Primary Care Unavailable NEO, DR MERLENE Reed Admitting Unavailable AGUILAR CALLOWAY Attending Unavailable JR. GONZALEZ, JHON Ford Attending UnavailNATALIE Fuentes Attending Unavailable Allergies Allergy Classification Reported Allergen(s) Allergy Type Date of Onset Reaction(s) Facility (4 sources) Amoxicillin / Clavulanate Drug Allergy Unknown [facility] Other (8 sources) Penicillin Drug Allergy Unknown [facility] Other (8 sources) Sulfamethoxazole / Trimethoprim Drug Allergy Unknown [facility] Other (8 sources) Sulfonamides (Antibiotic) Propensity to adverse reactions Unknown [facility] Other (5 sources) Amoxicillin / Clavulanate; Translations: [Augmentin] Drug Allergy 10-07-19 Unknown [facility] Repository (1 source) Sulfonamides (Antibiotic) Drug allergy (disorder) 10-07-19 15 [facility] Repository (3 sources) Angiotensin-convert ing enzyme inhibitor agent Drug allergy Unknown [facility] Other (3 sources) Substance with penicillin structure and antibacterial mechanism of action (substance) Drug allergy 02-24-20 13 Unknown [facility] Other (3 sources) Substance with sulfonamide structure and antibacterial mechanism of action (substance) Drug allergy SULFA DRUGS [facility] Other (3 sources) FAUSTINO inhibitor use, contraindication Propensity to adverse reactions 03-23-20 14 Comment:advers e rxn/side effects [facility] Other (3 sources) Allergies Reconciled Propensity to adverse reactions Unknown [facility] Other (3 sources) patient allergy list reviewed by nurse or physicia Propensity to adverse reactions 04-10-20 15 Comment:Done [facility] Other Medications Current Medications Medication Drug Class(es) [...] Episodic/Chronic Administrative/social admission (3 sources) Informing health critical care nurse of test result; Translations: [Person consulting for [...] Onset: 07-07-2022 Episodic Other aftercare (1 source) [facility] (current) use of aspirin; Translations: [JAIL CURRENT USE OF ASPIRIN] Onset: 07-07-2022 Episodic Other aftercare (1 source) [facility] (current) use of insulin; Translations: [JAIL CURRENT USE OF INSULIN] Onset: 07-07-2022 Episodic Other aftercare (1 source) 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 Makenna Smith Basophils/100 WBC (Bld) 0.8 % Normal 0.2-2.0 [facility] Comment on above: Performed By: #### C BC #### [facility] [address] [address] [address] Makenna Smith EO # 0.7 103/ul Normal 0.0-0.7 [facility] Comment on above: Performed By: #### C BC #### [facility] [address] [address] [address] Makenna Smith Eosinophils/100 WBC (Bld) 14.4 % Critically high 0.9-7.0 [facility] Comment on above: Performed By: #### C BC #### [facility] [address] [address] [address] Makenna Smith Erythrocyte distribution width (RBC) [Ratio] 14.2 % Normal 11.0-15.0 [facility] Comment on above: Performed By: #### C BC #### [facility] [address] [place] [address] Dr. Makenna Smith Hematocrit (Bld) [Volume fraction] 36.1 % Normal 36.0-48.0 [facility] Comment on above: Performed By: #### C BC #### [facility] [address] [place] [address] Dr. Makenna Smith Hemoglobin (Bld) [Mass/Vol] 11.9 g/dL Critically low 12.0-16.0 [facility] Comment on above: Performed By: #### C BC #### [facility] [address] [place] [address] Dr. Makenna Smith IG # 0.03 10e3/ul Normal 0.00-0.03 [facility] Comment on above: Performed By: #### C BC #### [facility] [address] [place] [address] Dr. Makenna Smith IG % 0.6 % Critically high 0.0-0.5 [facility] Comment on above: Performed By: #### C BC #### [facility] [address] [place] [address] Dr. Makenna Smith LYMPH # 1.4 103/ul Normal 1.2-3.8 [facility] Comment on above: Performed By: #### C BC #### [facility] [address] [place] [address] Dr. Makenna Smith Lymphocytes/100 WBC (Bld) 27.3 % Normal 20.5-60.0 [facility] Comment on above: Performed By: #### C BC #### [facility] [address] [place] [address] Dr. Makenna Smith MANUAL DIFF REQ NO Normal [facility] Comment on above: Performed By: #### C BC #### [facility] [address] [place] [address] Dr. Makenna Smith MCH (RBC) [Entitic mass] 30.4 pg Normal 26.7-34.0 [facility] Comment on above: Performed By: #### C BC #### [facility] [address] [address] [address] Makenna Smith MCHC (RBC) [Mass/Vol] 33.0 g/dL Normal 29.9-35.2 [facility] Comment on above: Performed By: #### C BC #### [facility] [address] [address] [address] Makenna Smith MCV (RBC) [Entitic vol] 92.1 fL Normal 81.0-99.0 [facility] Comment on above: Performed By: #### C BC #### [facility] [address] [place] [address] Dr. Makenna Smith MONO # 0.3 103/ul Normal 0.3-0.8 [facility] Comment on above: Performed By: #### C BC #### [facility] [address] [place] [address] Dr. Makenna Smith Monocytes/100 WBC (Bld) 6.4 % Normal 1.7-12.0 [facility] Comment on above: Performed By: #### C BC #### [facility] [address] [place] [address] Dr. Makenna Smith NEUT # 2.5 103/ul Normal 1.4-6.5 [facility] Comment on above: Performed By: #### C BC #### [facility] [address] [place] [address] Dr. Makenna Smith Neutrophils/100 WBC (Bld) 50.5 % Normal 43.0-75.0 [facility] Comment on above: Performed By: #### C BC #### [facility] [address] [place] [address] Dr. Makenna Smith Platelet mean volume (Bld) [Entitic vol] 10.9 fL Normal 9.5-13.5 [facility] Comment on above: Performed By: #### C BC #### [facility] [address] [place] [address] Dr. Makenna Smith PLT 141 103/ul Critically low 150-450 [facility] Comment on above: Performed By: #### C BC #### [facility] [address] [place], [place] [address] Dr. Makenna Smith RBC 3.92 106/ul Critically low 4.20-5.40 [facility] Comment on above: Performed By: #### C BC #### [facility] [address] [place], [place] [address] Dr. Makenna Smith WBC 5.0 103/ul Normal 4.0-11.0 [facility] Comment on above: Performed By: #### C BC #### [facility] [address] [place], [place] [address] Dr. Makenna Smith MG MAMM SCREEN 3D BENY CADon 10-29-2021 MG MAMM SCREEN 3D BENY CAD Patient: RAMU MAR Exam Date: 10/29/2021 : 1945 Gender:F Ordering : DR JULIO MAURICIO . Admission #: [id number] Family : Order #: [id number] CLICK HERE TO VIEW EXAM RADIOLOGY REPORT [...] breast cancer at age 42. LOCATION: [facility] BREAST COMPOSITION: Scattered areas fibroglandular density. FINDINGS: [...] Aggarwal MD on 10/29/2021 at 14:10 Normal [facility] Vital Signs Date Time Vital Sign Value Performing Clinician Facility 09-18-2022 15:00-0400 Body height 158.75 cm Merlene Abbott Other [facility] Other 09-18-2022 15:00-0400 Body mass index (BMI) [Ratio] 37.97 kg/m2 Merlene Abbott Other [facility] Other 09-18-2022 15:00-0400 Body weight 95.71 kg Merlene Abbott Other [facility] Other 09-18-2022 15:00-0400 Diastolic blood pressure 68 mm[Hg] Merlene Abbott Other [facility] Other 09-18-2022 15:00-0400 SaO2% (BldA) [Mass fraction] 97 % Merlene Abbott Other [facility] Other 09-18-2022 15:00-0400 Systolic blood pressure 132 mm[Hg] Merlene Abbott Other [facility] Other Encounters Encounter Date Encounter Type Care Provider Facility Start: 06-03-2023 End: 06-03-2023 ambulatory JHON JAVIER Not Available Start: 06-01-2023 End: 06-01-2023 ambulatory AGUILAR CALLOWAY Not Available Start: 04-23-2023 End: 04-23-2023 ambulatory NATALIE ROSS Not Available Start: 02-16-2023 End: 02-16-2023 ambulatory Merlene Abbott Other [facility] Other Start: 02-16-2023 Telephone encounter Merlene Abbott [facility] Start: 01-30-2023 End: 01-30-2023 ambulatory Merlene Abbott Other [facility] Other Start: 01-30-2023 Telephone encounter Merlene Abbott [facility] Start: 12-08-2022 End: 12-08-2022 ambulatory Merlene Abbott Other [facility] Other Start: 12-08-2022 Telephone encounter Merlene Abbott [facility] Start: 09-26-2022 End: 09-26-2022 ambulatory Merlene Abbott Other [facility] Other Start: 09-26-2022 Telephone encounter Merlene Abbott [facility] Start: 09-24-[address] MERLENE ABBOTT Facil ity:[facility] Start: 09-18-2022 End: 09-18-2022 ambulatory Merlene Abbott Other [facility] Other Start: 09-18-2022 Patient encounter procedure Merlene Abbott [facility] Start: 07-10-2022 End: 07-10-2022 ambulatory Merlene Abbott Other [facility] Other Start: 07-10-2022 Telephone encounter Merlene Neo [facility] Start: 07-05-2022 End: 07-05-2022 ambulatory GRANT BAPTISTE Facility:[facility] Start: 06-27-2022 End: 06-27-2022 ambulatory Merlene Abbott Other [facility] Other Start: 06-27-2022 Telephone encounter Merlene Neo [facility] Start: 06-18-2022 End: 06-18-2022 ambulatory Merlene Abbott Other [facility] Other Start: 06-18-2022 Telephone encounter Merlene Neo [facility] Start: 04-30-2022 Adult health examination Mariangel Abbott Other [facility] Other Start: 10-29-2021 End: 10-30-[address] MERLENE ABBOTT Facility:[facility] Start: 05-01-2021 End: 05-01-2021 Gynecological examination normal Merlene Abbott Other [facility] Other Start: 08-03-2018 End: 08-04-2018 Patient encounter procedure DEFAULT PHYSICIAN Facility:[facility] Procedures Date Procedure Procedure Detail [...] Pfi zer - Documentation Purposes Only Merlene Neo Other [facility] Other 02-25-2021 COVID-19 Vaccine Pfi zer - Documentation Purposes Only Merlene Neo Other [facility] Other 07-10-2020 COVID-19 Vaccine Pfi zer - Documentation Purposes Only Merlene Neo Other [facility] Other 06-19-2020 COVID-19 Vaccine Pfi zer - Documentation Purposes Only Merlene Neo Other [facility] Other 04-10-2015 pneumococcal conjuga te vaccine, 13 valent Merlene Neo Other [facility] Other 04-10-2015 pneumococcal Conjuga te, unspecified formulation; Translations: [Need for prophylactic vaccination against Streptococcus pneumoniae (pneumococcus)] Merlene Abbott Other [facility] Other 02-23-2013 tetanus and diphther ia toxoids, adsorbed, preservative free, for adult use (5 Lf of tetanus toxoid and 2 Lf of diphtheria toxoid) Merlene Abbott Other [facility] Other 10-17-2008 pneumococcal polysaccharide vaccine, 23 valent Merlene Neo Other [facility] Other Payers Date Payer Category Payer Medicare [id number] 1957 Medicare [id number] 2.1 [id number] 1945 Unknown [id number] 2.16.8 [id number] 1945 Unknown [id number] 2.16.84 [id number] 1945 Unknown [id number] 2.16.84 [id number] 1945 Unknown [id number] 2.16.84 [id number] 1945 Unknown [id number] 2.16.84 [id number] 1945 Unknown [id number] 2.16.84 [id number] 1945 Unknown [id number] Unknown Social History Date Type Detail Facility Sex Assigned At [facility] Other Medical Equipment Procedure Code Equipment Code [...] breast (ICD-10 - Z12.31) due in October [facility] Other Evaluation note Note Date & Type Note Facility Evaluation note No Information [facility] Other History general Narrative - Reported Note Date & Type Note Facility History general Narrative - Reported Type Medical History Diabetes mellitus with hyperglyc [facility] Medical History Dyslipidemia Medical History Osteopenia Medical History Essential hypertension Medical History Post-menopausal Medical History Adult hypothyroidism Surgical History D&C 2002 Surgical History Surgical History HYSTERECTOMY 2014 Hospitalization History SEE SURGICAL HX [facility] Other Summary Purpose Family History No Family History Records FoundNo Family History Records FoundNo Family History Records Found Advance Directives No Advanced Directives Records FoundNo Advanced Directives Records FoundNo Advanced Directives Records Found Additional Source Comments INFORMATION SOURCE (unrecogn ized section and content) DATE CREATED AUTHOR 08/07/2018 [facility] DATE CREATED AUTHOR AUTHOR'S ORGANIZ ATION 09/24/2022 [facility] DATE CREATED AUTHOR AUTHOR'S ORGANIZ ATION 06/04/2023 [facility] Specialists EPIC REASON FOR VISIT (unrecogniz [...] BE BASED ON THE PRIMARY CLINICAL RECORDS. [facility], [facility]. provides no warranty or guarantee of the accuracy or completeness of information in this document.
[2023-06-05 10:23] LABS: Anion Gap 11.2; BUN Creatinine Ratio 17.7; Calcium 9.8 mg/dL (8.5-10.1); Carbon Dioxide 30.5 mmol/L (21.0-32.0); Chloride 99 mmol/L (98-107); Estimated GFR (African America >60 (>=60); Estimated GFR (Non-African Ame 57 (>=60); Glucose 233 mg/dL (74-106); Potassium 3.7 mmol/L (3.5-5.1); Sodium 137 mmol/L (136-145)
== END 2023-06-05 09:53 | disposition home or self-care (01) ==
PROVIDERS: PCP Family Medicine; Visit Provider Personal Emergency Response Attendant
DX: Z01.812 Encounter for preprocedural laboratory examination (principal)
CPT/HCPCS: 36415; 80048

== ENCOUNTER 2023-10-20 10:16 | Outpatient (OUT) | payer MEDICARE, OTHER, SELFPAY ==
[2023-10-20 10:47] LABS: Basophils Absolute Auto 0.1 10^3/uL (0.0-0.1); Basophils Percent Auto 0.8 % (0.2-2.0); Eosinophils Absolute Auto 0.5 10^3/uL (0.0-0.7); Eosinophils Percent Auto 5.5 % (0.9-7.0); Hematocrit 36.1 % (36.0-48.0); Hemoglobin 11.5 g/dL (12.0-16.0); Immature Granulocytes Abs Auto 0.07 10^3/uL (0.00-0.03); Immature Granulocytes Pct Auto 0.8 % (0.0-0.5); Lymphocytes Absolute Auto 2.5 10^3/uL (1.2-3.8); Lymphocytes Percent Auto 28.7 % (20.5-60.0); Mean Corpuscular HGB Conc 31.9 g/dL (29.9-35.2); Mean Corpuscular Volume 90.9 fL (81.0-99.0); Mean Platelet Volume 10.4 fL (9.5-13.5); Monocytes Absolute Auto 0.5 10^3/uL (0.3-0.8); Monocytes Percent Auto 5.6 % (1.7-12.0); Neutrophils Percent Auto 58.6 % (43.0-75.0); Platelet Count 175 10^3/uL (150-450); Red Blood Count 3.97 10^6/uL (4.20-5.40); Red Cell Distribution Width 13.7 % (11.0-15.0); White Blood Count 8.6 10^3/uL (4.0-11.0)
[2023-10-20 12:01] LABS: Alanine Aminotransferase 64 U/L (14-59); Anion Gap 13.9; Aspartate Amino Transferase 41 U/L (15-37); BUN Creatinine Ratio 18.3; Bilirubin Total 0.7 mg/dL (0.2-1.0); Calcium 9.7 mg/dL (8.5-10.1); Carbon Dioxide 28.6 mmol/L (21.0-32.0); Chloride 101 mmol/L (98-107); Estimated GFR (African America >60 (>=60); Estimated GFR (Non-African Ame 59 (>=60); Glucose 117 mg/dL (74-106); Potassium 3.5 mmol/L (3.5-5.1); Sodium 140 mmol/L (136-145)
[2023-10-20 12:02] LABS: Albumin Globulin Ratio 0.9; Albumin Level 3.8 g/dL (3.4-5.0); Alkaline Phosphatase 68 U/L (46-116); Cholesterol 191 mg/dL (<=200); Free T4 1.58 ng/dL (0.76-1.46); Globulin 4.4 g/dL; HDL Cholesterol 38 mg/dL (40-60); Total Protein 8.2 g/dL (6.4-8.2); Triglycerides 129 mg/dL (<=150); VLDL CHOLESTEROL 25.8 mg/dL
[2023-10-20 12:03] LABS: Thyroid Stimulating Hormone 1.841 uIU/mL (0.358-3.740)
[2023-10-20 12:28] LABS: Estimated Average Glucose 194 mg/dL; Glycohemoglobin A1C 8.4 % (4.5-6.2)
[2023-10-20 17:01] LABS: Microalbumin Urine Random 11.9 mg/dL (<=30.0)
== END 2023-10-20 10:17 | disposition home or self-care (01) ==
LOC: LAB 10:16
PROVIDERS: PCP Family Medicine; Visit Provider Family Medicine
DX: E78.5 Hyperlipidemia, unspecified (principal); E11.65 Type 2 diabetes mellitus with hyperglycemia; I10 Essential (primary) hypertension; E03.9 Hypothyroidism, unspecified
CPT/HCPCS: 36415; 80053; 80061; 82043; 83036; 84439; 84443; 85025

== ENCOUNTER 2023-12-03 12:49 | Outpatient (OUT) | payer MEDICARE, OTHER, SELFPAY ==
--- NOTE | 2023-12-03 12:51 | MM_ITS ---
Patient Name: RAMU MAR MR#: [id number] : 1945 Exam Date: 12/03/2023 Ordering Doctor: DR Merlene Abbott M.D. RADIOLOGY REPORT PROCEDURE: MM TOMOSYNTHESIS SCREENING BI COMPARISON: MM TOMOSYNTHESIS SCREENING BI, 11/10/2022. MG MAMM SCREEN 3D BENY CAD, 10/29/2021. INDICATIONS: Screening Calculator Name NCI Breast Cancer Risk Assessment Tool 5 Year Breast Cancer Risk 3.70% Lifetime Breast Cancer Risk 7.40% Personal Breast Cancer No Personal Ovarian Cancer No Treatments None Family Cancers Sister with breast cancer at age 50; Aunt-maternal with breast cancer at age ~40; Aunt-paternal with breast cancer at age ~40; Brother with esophageal cancer at age 50. LOCATION: [facility] BREAST COMPOSITION: There are scattered areas of fibroglandular density. FINDINGS: DIAGNOSTIC CATEGORY 2--BENIGN FINDING. NO CHANGE FROM COMPARISON. Scattered benign-appearing calcifications are present. Scattered benign-appearing lymph nodes are present. RIGHT BREAST: No significant suspicious finding. LEFT BREAST: No significant suspicious finding. RECOMMENDATIONS: ROUTINE MAMMOGRAM AND CLINICAL EVALUATION IN 12 MONTHS. PLEASE NOTE: A NORMAL MAMMOGRAM DOES NOT EXCLUDE THE POSSIBILITY OF BREAST CANCER. A CLINICALLY SUSPICIOUS PALPABLE LUMP SHOULD BE BIOPSIED. Dictated by: Koby Aggarwal MD on 12/03/2023 at 14:00 Approved by: Koby Aggarwal MD on 12/03/2023 at 14:01
--- OUTSIDE RECORDS SUMMARY | 2023-12-03 12:53 | XMS_ITS | CCD ---
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 Name Role Phone PHYSICIAN, DEFAULT Admitting Unavailable PHYSICIAN, DEFAULT Attending Unavailable Merlene Larson Unavailable GRANT BAPTISTE Admitting Unavailable NEO, DR MERLENE Reed Primary Care Unavailable GRANT BAPTISTE Attending Unavailable GRANT BAPTISTE Consulting Unavailable NEO, DR MERLENE Reed Primary Care Unavailable HANG ., DR KIM Attending Unavailabl e HANG ., DR KIM Consulting Unavailabl e HANG ., DR KIM Admitting Unavailque e JONESVILLE, DR NICOLE Galvan Consulting Unavailable LARSON, DR MERLENE Reed Attending Unavailable LARSON, DR MERLENE Reed Consulting Unavailable LARSON, DR MERLENE Reed Primary Care Unavailable NEO, DR MERLENE Reed Admitting Unavailable Merlene Larson MD Primary Care Provider AGUILAR SHABAZZ Attending Unavailable JR. GONZALEZ, JHON Ford Attending Unavaila AGUILAR Rowe Attending Unavailable JAIMIE ROSS Attending Unavailable Allergies Allergy Classification Reported Allergen(s) Allergy Type Date of Onset Reaction(s) Facility (4 sources) Amoxicillin / Clavulanate Drug Allergy Unknown [facility] Other (8 sources) Penicillin Drug Allergy Unknown [facility] Other (8 sources) Sulfamethoxazole / Trimethoprim Drug Allergy Unknown [facility] Other (8 sources) Sulfonamides (Antibiotic) Propensity to adverse reactions Unknown [facility] Other (5 sources) Amoxicillin / Clavulanate; Translations: [Augmentin] Drug Allergy 10-07-19 Unknown [facility] (1 source) Sulfonamides (Antibiotic) Drug allergy (disorder) 10-07-19 [facility] (3 sources) Angiotensin-convert ing enzyme inhibitor agent Drug allergy Unknown [facility] Other (3 sources) Substance with penicillin structure and antibacterial mechanism of action (substance) Drug allergy 02-24-20 13 Unknown [facility] Other (3 sources) Substance with sulfonamide structure and antibacterial mechanism of action (substance) Drug allergy SULFA DRUGS [facility] Other (3 sources) NÉSTOR inhibitor use, contraindication Propensity to adverse reactions 03-23-20 14 Comment:advers e rxn/side effects [facility] Other (3 sources) Allergies Reconciled Propensity to adverse reactions Unknown [facility] Other (3 sources) patient allergy list reviewed by nurse or physicia Propensity to adverse reactions 04-10-20 Comment:Done [facility] Other (2 sources) Sulfacetamide Drug Allergy 04-17-20 [facility] (2 sources) Amoxicillin Drug Allergy 09-19-19 23 [facility] (2 sources) Angiotensin Converting Enzyme (Néstor) Inhibitors Allergy to substance 09-19-19 [facility] (2 sources) Clavulanate Drug Allergy 09-19-19 [facility] (2 sources) Penicillins Allergy to substance 09-19-19 [facility] (2 sources) Sulfamethoxazole Drug Allergy 09-19-19 [facility] (2 sources) Sulfonamides (Antibiotic) Allergy to substance 09-19-19 [facility] (2 sources) Trimethoprim Drug Allergy 09-19-19 [facility] Medications Current Medications Medication Drug Class(es) Dates Sig (Normalized) Sig (Original) alendronic acid 35 mg oral tablet (10 sources) Bisphosphonate Start: 10-15-2023 take 1 tablet by mouth every week Alendronate Active 35 MG PO every week October 15, 2023 12:00am [employer] tablet 30 minutes before the first food, beverage or medicine of the day with plain water Orally; Note: Source Status: Taking; Provider: Neo Blunt ( ) Start: 03-18-2023 End: 03-17-2024 take 1 tablet by mouth in the morning alendronate (Fosamax) 35 MG tablet Indications: Osteopenia after menopause Take 1 tablet (35 mg) by mouth every 7 (seven) days. Take in the morning with a full glass of water, on an empty stomach, and do not take anything else by mouth or lie down for the next 30 min. 51 tablet 0 03/18/2023 03/17/2024 Active take 1 tablet by joe th once daily Alendronate Sodium 35 MG 1 tablet 30 minutes before the first food, beverage or medicine of the day with plain water Orally Active atorvastatin 20 mg oral tablet (10 sources) HMG-CoA Reductase Inhibitor Start: 10-15-2023 take 1 tablet by mouth once daily Atorvastatin Active 20 MG PO Daily October 15, 2023 12:00am [employer]: TAKE 1 TABLET DAILY; Note: Source Status: Start; Refills: 1; Qty: 90 Tablet; Provider: Neo Blunt ( ) Start: 05-04-2023 atorvastatin ( Lipitor) 20 MG tablet Start: 06-27-2022 take 1 tablet by joe th every twenty-four hours Atorvastatin Calcium 20 MG 1 tablet Orally Once a day for 90 day(s) Jun, Active glipiZIDE 5 mg oral tablet (11 sources) Sulfonylurea Start: 07-20-2023 Glipizide Acti ve 0 .ROUTE .COMPLEX 180 July 20, 2023 1:09pm TAKE 1 TABLET TWICE A DAY Start: 07-20-2023 End: 07-20-2023 take 5 mg by mouth twice daily Glipizide Discontinued 5 MG PO Twice daily July 20, 2023 12:00am July 20, 2023 1:09pm Start: 12-08-2022 take 1 tablet by joe th once daily 30 minutes before breakfast glipiZIDE 5 MG 1 tablet 30 minutes before breakfast Orally Once a day for 90 days Nov, Active glipiZIDE (Gluco trol) 5 MG tablet every 8 (eight) hours 0 Active glipiZIDE 5 MG T LUCIO 1 TABLET TWICE A DAY for 90 Active hydroCHLOROthiazide 12.5 mg / losartan potassium 50 mg oral tablet (10 sources) Thiazide Diuretic, Angiotensin 2 Receptor Megan Start: 10-15-2023 take 1 tablet by mouth once daily Losartan-Hydrochlorothiazide Active 1 TAB PO Daily October 15, 2023 12:00am Start: 05-09-2023 losartan-hydro CHLOROthiazide (Hyzaar) 50-12.5 MG tablet take 1 tablet by joe th every twenty-four hours Losartan Potassium-HCTZ 50-12.5 MG 1 tab let Orally Once a day Active insulin degludec 100 unt/ml injectable solution (9 sources) Insulin Analog insulin degludec (Tresiba) 100 UNIT/ML injection as directed Subcutaneous 0 Active inject 38 [IU] by rose bcutaneous injection once daily Tresiba FlexTouch 100 UNIT/ML INJECT 38 UNITS SUBCUTANEOUSLY ONCE A DAY for 40 Active Tresiba FlexTouc h 100 UNIT/ML INJECT 38 UNITS ONCE DAILY for 39 Active Insulin Degludec (Tresiba Flextouch U-100) 100 unit/mL (3 mL) insulin pen (3 sources) Start: 10-15-2023 Insulin Deglud ec (Tresiba Flextouch U-100) 100 unit/mL (3 mL) insulin pen Active 0 .ROUTE .COMPLEX October 15, 2023 1:40pm INJECT 40 UNITS SUBCUTANEOUSLY ONCE A DAY Start: 09-08-2023 End: 10-15-2023 Insulin Degludec (Tresiba Fl extouch U-100) 100 unit/mL (3 mL) insulin pen Discontinued 0 .ROUTE .COMPLEX September 08, 2023 12:16pm October 15, 2023 1:40pm INJECT 38 UNITS SUBCUTANEOUSLY ONCE A DAY Start: 09-08-2023 End: 09-08-2023 Insulin Degludec (Tresiba Fl extouch U-100) 100 unit/mL (3 mL) insulin pen Discontinued 38 UNIT SUBCUT Daily September 08, 2023 12:00am September 08, 2023 12:16pm levothyroxine sodium 0.1 mg oral tablet (13 sources) l-Thyroxine Start: 08-31-2023 Levothyroxine Active 0 .ROUTE .COMPLEX 90 August 31, 2023 12:58pm TAKE 1 TABLET DAILY Start: 08-31-2023 End: 08-31-2023 take 100 ug by mouth once daily Levothyroxine Discontinued 100 MCG PO Daily August 31, 2023 12:00am August 31, 2023 12:58pm levothyroxine (S ynthroid, Levoxyl) 100 MCG tablet 1 (one) time each day at the same time 0 Active Levothyroxine So dium 100 MCG TAKE 1 TABLET DAILY for 90 Active metFORMIN hydrochloride 1000 mg oral tablet (8 sources) Biguanide Start: 10-15-2023 take 1000 mg by mouth twice daily at mealtime Metformin Active 1000 MG PO Twice daily with meals October 15, 2023 12:00am Start: 12-08-2022 take 1 tablet by joe th twice daily metFORMIN HCl 1000 MG 1 tablet Orally twice daily for 90 days Nov, Active take 1 tablet by joe th every twenty-four hours metFORMIN HCl 1000 MG 1 tablet with a meal Orally Once a day Active pioglitazone 30 mg oral tablet (11 sources) Peroxisome Proliferator Receptor alpha Agonist, Peroxisome Proliferator Receptor gamma Agonist, Thiazolidinedione Start: 09-07-2023 take 1 tablet by mouth once daily Pioglitazone Active 0 .ROUTE .COMPLEX 90 September 07, 2023 2:14pm TAKE 1 TABLET BY MOUTH EVERY DAY Start: 09-07-2023 End: 09-07-2023 take 30 mg by mouth once daily Pioglitazone Discontinu ed 30 MG PO Daily September 07, 2023 12:00am September 07, 2023 2:14pm Start: 03-12-2023 take 1 tablet by joe th in the morning pioglitazone (Actos) 30 MG tablet Take 30 mg by mouth in the morning. 0 03/12/2023 Active take 1 tablet by joe th once daily Pioglitazone HCl 30 MG TAKE 1 TABLET BY MOUTH EVERY DAY for 90 Active Completed/Discontinued Medications Medication Drug Class(es) Dates Sig (Normalized) Sig (Original) ciprofloxacin 250 mg oral tablet (4 sources) Quinolone Antimicrobial Start: 09-04-2023 End: 10-15-2023 take 250 mg by mouth twice daily Ciprofloxacin Hcl Discontinued 250 MG PO Twice daily September 04, 2023 12:00am October 15, 2023 1:18pm Start: 01-30-2023 take 1 tablet by joe th every twelve hours Ciprofloxacin HCl 250 MG 1 tablet Orally every 12 hrs for 5 day(s) Jan, Active meclizine hydrochloride 25 mg oral tablet (8 sources) Antiemetic Start: 07-11-2022 take 1 tablet by mouth every eight hours as needed Meclizine HCl 25 MG 1 tablet as needed Orally q8h prn for 10 days Jul, Not-Taking Problems Active Problems Problem Classification Problem Date Documented Da te Episodic/Chronic Administrative/social admission (3 sources) Informing health critical care transport nurse of test result; Translations: [Person consulting for explanation of examination or test findings] Episodic Diabetes mellitus with complications (14 sources) Hyperglycemia due to type 2 diabetes mellitus; Translations: [Type 2 diabetes mellitus with hyperglycemia] Chronic Diabetes mellitus without complication (3 sources) Type 2 diabetes mellitus without complication; Translations: [Diabetes mellitus without mention of complication, type II or unspecified type, not stated as uncontrolled] Chronic Disorders of lipid metabolism (17 sources) Dyslipidemia; Translations: [Hyperlipidemia, unspecified] Chronic Essential hypertension (14 sources) Essential hypertension; Translations: [Essential (primary) hypertension] Chronic Menopausal disorders (1 source) Hormone replacement therapy; Translations: [HORMONE REPLACEMENT THERAPY] Onset: 07-07-2022 Episodic Other aftercare (1 source) halfway (current) use of aspirin; Translations: [SENIOR CARE CURRENT USE OF ASPIRIN] Onset: 07-07-2022 Episodic Other aftercare (1 source) halfway (current) use of insulin; Translations: [CONTINUOUS CHURN BUTTERMAKER CURRENT USE OF INSULIN] Onset: 07-07-2022 Episodic Other aftercare (1 source) halfway (current) use of oral hypoglycemic drugs; Translations: [CONTINUOUS CHURN BUTTERMAKER USE ORAL HYPOGLYCEMIC DX] Onset: 07-07-2022 Episodic [...] user; Translations: [Tobacco use] Episodic Thyroid disorders (14 sources) Hypothyroidism; Translations: [Hypothyroidism, unspecified] Chronic Viral [...] Name Value Interpretation Reference Range Facil ity Laboratory - Chemistry and C hemistry - challengeon 09-04-2023 Bilirubin Ql (U) Negative [facility] Glucose (U) [Mass/Vol] Negative [facility] Ketones Ql (U) Negative [facility] pH (U) 5 [pH] [facility] Specific gravity (U) [Rel density] 1.025 [facility] Urobilinogen (U) [Mass/Vol] 0.2 mg/dL [facility] Laboratory - Specimen inform ationon 09-04-2023 Appearance (U) cloudy [facility] Color (U) Yellow [facility] Laboratory - Urinalysison Leukocyte esterase Test strip Ql (U) ++ [facility] Nitrite Ql (U) Negative [facility] Protein Ql (U) Negative [facility] No Panel Informationon 09-03 Urine Occult Blood ++ [facility] CBC AUTO DIFFon 09-24-2022 BASO # 0.0 103/ul Normal 0.0-0.1 [facility] Comment on above: Performed By: #### C BC #### [facility] [address] [place] [address] Dr. Makenna Smith Basophils/100 WBC (Bld) 0.8 % Normal 0.2-2.0 [facility] Comment on above: Performed By: #### C BC #### [facility] [address] [address] [address] Makenna Smith EO # 0.7 103/ul Normal 0.0-0.7 [facility] Comment on above: Performed By: #### C BC #### [facility] [address] [address] [address] Makenna Smith Eosinophils/100 WBC (Bld) 14.4 % Critically high 0.9-7.0 [facility] Comment on above: Performed By: #### C BC #### [facility] [address] [address] [address] Makenna Smith Erythrocyte distribution width (RBC) [Ratio] 14.2 % Normal 11.0-15.0 [facility] Comment on above: Performed By: #### C BC #### [facility] [address] [address] [address] Makenna Smith Hematocrit (Bld) [Volume fraction] 36.1 % Normal 36.0-48.0 [facility] Comment on above: Performed By: #### C BC #### [facility] [address] [address] [address] Makenna Smith Hemoglobin (Bld) [Mass/Vol] 11.9 g/dL Critically low 12.0-16.0 [facility] Comment on above: Performed By: #### C BC #### [facility] [address] [address] [address] Makenna Smith IG # 0.03 10e3/ul Normal 0.00-0.03 [facility] Comment on above: Performed By: #### C BC #### [facility] [address] [place] [address] Dr. Makenna Smith IG % 0.6 % Critically high 0.0-0.5 [facility] Comment on above: Performed By: #### C BC #### [facility] [address] [place] [address] Dr. Makenna Smith LYMPH # 1.4 103/ul Normal 1.2-3.8 [facility] Comment on above: Performed By: #### C BC #### [facility] [address] [place] [address] Dr. Makenna Smith Lymphocytes/100 WBC (Bld) 27.3 % Normal 20.5-60.0 [facility] Comment on above: Performed By: #### C BC #### [facility] [address] [place] [address] Dr. Makenna Smith MANUAL DIFF REQ NO Normal [facility] Comment on above: Performed By: #### C BC #### [facility] [address] [place] [address] Dr. Makenna Smith MCH (RBC) [Entitic mass] 30.4 pg Normal 26.7-34.0 [facility] Comment on above: Performed By: #### C BC #### [facility] [address] [place] [address] Dr. Makenna Smith MCHC (RBC) [Mass/Vol] 33.0 g/dL Normal 29.9-35.2 [facility] Comment on above: Performed By: #### C BC #### [facility] [address] [address] [address] Makenna Smith MCV (RBC) [Entitic vol] 92.1 fL Normal 81.0-99.0 [facility] Comment on above: Performed By: #### C BC #### [facility] [address] [address] [address] Makenna Smith MONO # 0.3 103/ul Normal 0.3-0.8 [facility] Comment on above: Performed By: #### C BC #### [facility] [address] [address] [address] Makenna Smith Monocytes/100 WBC (Bld) 6.4 % Normal 1.7-12.0 [facility] Comment on above: Performed By: #### C BC #### [facility] [address] [address] [address] Makenna Smith NEUT # 2.5 103/ul Normal 1.4-6.5 [facility] Comment on above: Performed By: #### C BC #### [facility] [address] [address] [address] Makenna Smith Neutrophils/100 WBC (Bld) 50.5 % Normal 43.0-75.0 [facility] Comment on above: Performed By: #### C BC #### [facility] [address] [address] [address] Makenna Smith Platelet mean volume (Bld) [Entitic vol] 10.9 fL Normal 9.5-13.5 [facility] Comment on above: Performed By: #### C BC #### [facility] [address] [address] [address] Makenna Smith PLT 141 103/ul Critically low 150-450 [facility] Comment on above: Performed By: #### C BC #### [facility] [address] [address] [address] Makenna Smith RBC 3.92 106/ul Critically low 4.20-5.40 [facility] Comment on above: Performed By: #### C BC #### [facility] [address] [place], [place] [address] Dr. Makenna Smith WBC 5.0 103/ul Normal 4.0-11.0 [facility] Comment on above: Performed By: #### C BC #### [facility] [address] [place], [place] [address] Dr. Makenna Smith MG MAMM SCREEN 3D BENY CADon 10-29-2021 MG MAMM SCREEN 3D BENY CAD Patient: RAMU MAR Exam Date: 10/29/2021 : 1945 Gender:F Ordering : DR JULIO MAURICIO . Admission #: [id number] Family : Order #: [id number] CLICK HERE TO VIEW EXAM RADIOLOGY REPORT [...] breast cancer at age 42. LOCATION: [facility] BREAST COMPOSITION: Scattered areas fibroglandular density. [...] MD on 10/29/2021 at 14:10 Normal [facility] Vital Signs Date Time Vital Sign Value Performing Clinician Facility 10-15-2023 13:09-0400 Body height 157.48 cm [facility] 10-15-2023 13:09-0400 Body mass index (BMI) [Ratio] 37.8 kg/m2 [facility] 10-15-2023 13:09040 Body weight 93.89 kg [facility] 10-15-2023 13:09-0400 Diastolic blood pressure 76 mm[Hg] [facility] 10-15-2023 13:09-0400 Heart rate 87 /min [facility] 10-15-2023 13:09-0400 Systolic blood pressure 132 mm[Hg] [facility] 09-18-2022 15:00-0400 Body height 158.75 cm Merlene Larson Other [facility] Other 09-18-2022 15:00-0400 Body mass index (BMI) [Ratio] 37.97 kg/m2 Merlene Larson Other [facility] Other 09-18-2022 15:00-0400 Body weight 95.71 kg Merlene Larson Other [facility] Other 09-18-2022 15:00-0400 Diastolic blood pressure 68 mm[Hg] Merlene Larson Other [facility] Other 09-18-2022 15:00-0400 SaO2% (BldA) [Mass fraction] 97 % Merlene Larson Other [facility] Other 09-18-2022 15:00-0400 Systolic blood pressure 132 mm[Hg] Merlene Larson Other [facility] Other Encounters Encounter Date Encounter Type Care Provider Facility Start: 10-15-2023 End: 10-15-2023 ambulatory [facility] Work Phone: Start: 10-15-2023 End: 10-15-2023 Patient encounter procedure [facility] Work Phone: Start: 10-02-2023 Non-patient / Non-visit [facility] Work Phone: Start: 09-04-2023 End: 09-04-2023 ambulatory [facility] Work Phone: Start: 09-04-2023 End: 09-04-2023 Patient encounter procedure [facility] Work Phone: Start: 07-20-2023 Non-patient / Non-visit [facility] Work Phone: Start: 06-26-2023 End: 06-26-2023 ambulatory AGUILAR SHABAZZ Not Available Start: 06-17-2023 Telephone encounter Karen Jhon Acuna DO Work Phone: [facility] Comment on above: PO Questions Start: 06-05-2023 End: 06-05-2023 ambulatory AGUILAR SHABAZZ Not Available Start: 06-03-2023 End: 06-03-2023 ambulatory JHON JAVIER Not Available Start: 06-01-2023 End: 06-01-2023 ambulatory AGUILAR SHABAZZ Not Available Start: 04-23-2023 End: 04-23-2023 ambulatory JAIMIE ROSS Not Available Start: 02-16-2023 End: 02-16-2023 ambulatory Merlene Larson Other [facility] Other Start: 02-16-2023 Telephone encounter Merlene Larson [facility] Start: 01-30-2023 End: 01-30-2023 ambulatory Merlene Larson Other [facility] Other Start: 01-30-2023 Telephone encounter Merlene Larson [facility] Start: 12-12-2022 Chart abstracting Aguilar AGUILAR Work Phone: [facility] Start: 12-08-2022 End: 12-08-2022 ambulatory Merlene Larson Other [facility] Other Start: 12-08-2022 Telephone encounter Merlene Larson [facility] Start: 09-26-2022 End: 09-26-2022 ambulatory Merlene Larson Other [facility] Other Start: 09-26-2022 Telephone encounter Merlene Larson [facility] Start: 09-24-[address] MERLENE LARSON Facil ity:[facility] Start: 09-18-2022 End: 09-18-2022 ambulatory Merlene Larson Other [facility] Other Start: 09-18-2022 Patient encounter procedure Merlene Neo [facility] Start: 07-10-2022 End: 07-10-2022 ambulatory Merlene Larson Other [facility] Other Start: 07-10-2022 Telephone encounter Merlene Neo [facility] Start: 07-05-2022 End: 07-05-2022 ambulatory GRANT BAPTISTE Facility:[facility] Start: 06-27-2022 End: 06-27-2022 ambulatory Merlene Larson Other [facility] Other Start: 06-27-2022 Telephone encounter Merlene Neo [facility] Start: 06-18-2022 End: 06-18-2022 ambulatory Merlene Neo Other [facility] Other Start: 06-18-2022 Telephone encounter Merlene Neo [facility] Start: 04-30-2022 Adult health examination Mariangel Larson Other [facility] Other Start: 10-29-2021 End: 10-30-[address] MERLENE LARSON Facility:[facility] Start: 05-01-2021 End: 05-01-2021 Gynecological examination normal Merlene Larson Other [facility] Other Start: 08-03-2018 End: 08-04-2018 Patient encounter procedure DEFAULT PHYSICIAN Facility:[facility] Procedures Date Procedure Procedure Detail Performing Clinician Start: 03-23-2014 End: 04-08-2021 Screening mammography Merlene Larson Other Start: 02-23-2013 End: 04-08-2021 General examination of patient Merlene Larson Other End: 04-08-2021 Depression screening Merlene Larson Other End: 04-08-2021 Screening for malignant neoplasm of breast Merlene Larson Other Screening for malign ant neoplasm of breast Merlene Larson Other End: 04-08-2021 Screening for osteoporosis Merlene Larson Other End: 04-08-2021 Viral screening Merlene Larson Other Plan of Treatment Date Care Activity Detail Author Start: 08-28-2024 Screening for malignant neoplasm of colon [facility] Healthcare Start: 04-25-2024 End: 04-25-2024 Patient encounter procedure 04/25/2024 1:00 PM EST Office Visit [facility] [address] [place] [id number] Jaimie Ross PA [address] [place] [address] [facility] Start: 06-26-2023 End: 06-26-2023 Patient encounter procedure 06/26/2023 9:30 AM EST Office Visit [facility] [address] [facility] [facility] [address] [place] [address] Aguilar Shabazz PA [address] [facility] [address] [place] [address] [facility] Start: 10-30-2012 Pneumococcal Vaccine: 65+ Years (1 - PCV) Pneumococcal Vaccine: 65+ Years (1 - PCV) [facility] Healthcare Start: 1945 Screening for malignant neoplasm of colon [facility] Healthcare Immunizations Immunization Date Immunization Notes Care Provider Fa cility 10-24-2021 COVID-19 Vaccine Pfi zer - Documentation Purposes Only Merlene Larson Other [facility] 02-25-2021 COVID-19 Vaccine Pfi zer - Documentation Purposes Only Merlene Larson Other [facility] 07-10-2020 COVID-19 Vaccine Pfi zer - Documentation Purposes Only Merlene Larson Other [facility] 06-19-2020 COVID-19 Vaccine Pfi zer - Documentation Purposes Only Merlene Larson Other [facility] 04-10-2015 pneumococcal conjuga te vaccine, 13 valent Merlene Larson Other [facility] 04-10-2015 pneumococcal Conjuga te, unspecified formulation; Translations: [Need for prophylactic vaccination against Streptococcus pneumoniae (pneumococcus)] Merlene Larson Other [facility] Other 02-23-2013 tetanus and diphther ia toxoids, adsorbed, preservative free, for adult use (5 Lf of tetanus toxoid and 2 Lf of diphtheria toxoid) Merlene Larson Other [facility] 10-17-2008 pneumococcal polysaccharide vaccine, 23 valent Merlene Larson Other [facility] Payers Date Payer Category Payer Private Health Insurance AYAHJEISON Liliana SEDAA MEDICARE SUPPLEMENT [id number] 2023-Present [address] [address] [place] [address] Supplement [id number] 2012 Medicare MEDICARE MEDICAR E RAILROAD [id number] 2012-Present JACQUELINE MIMS RAILROAD MEDICARE [address] [address] [place] [address] Medicare [id number] 1959 Medicare [id number] 1959 Medicare [id number] 1945 Unknown [id number] 2..[id number] .2.647 1945 Unknown [id number] 2.16.840.1.994752.3.579 .2.593 1945 Unknown [id number] 2.16.840.1.578137.3.579 .2.593 1947 Unknown [id number] 2.16.840.1.077040.3.579 .2.593 1947 Unknown [id number] 2.16.840.1.024608.3.579 .2.1259 1947 Unknown [id number] 2.16.840.1.339920.3.579 .2.1259 1947 Unknown [id number] 2.16.840.1.503810.3.579 .2.1259 1947 Unknown [id number] 2.16.840.1.519687.3.579 .2.1259 1945 Unknown [id number] [id number] .2.1259 Unknown Social History Date Type Detail Facility Start: 04-23-2023 End: 06-05-2023 Sex Assigned At [facility] Start: 12-11-2022 End: 06-01-2023 Tobacco smoking status NHIS Never smoked tobacco [facility] Start: 06-01-2023 Tobacco use and exposure Smokeless t obacco non-user [facility] Start: 12-11-2022 End: 06-05-2023 Alcohol intake Current drinker of alcohol (finding) [facility] Start: 04-23-2023 End: 06-05-2023 Alcohol intake [facility] How often to you hav e a drink containing alcohol? Monthly or less [facility] Average Number of Drinks Not on file [facility] Start: 12-11-2022 Alcohol Comment Monthly or less [facility] Start: 1945 Sex Assigned At Female [facility] Start: 12-09-2022 Gender identity Identifies as female gender (finding) [facility] Start: 12-09-2022 Sexual orientation Heterosexual (fin ding) [facility] Medical Equipment Procedure Code Equipment Code Equipment Origin al Text Equipment Identifier Dates [id number], [id number], [id number] Start: 08-27-2022 Pen Needle, Diab etic (Comfort Ez Pen [place]) 32 gauge x 5/32 needle Start: 08-13-2023 Pen Needle, Diab etic (Comfort Ez Pen [place]) 32 gauge x 5/32 needle Start: 08-12-2023 End: 08-13-2023 Lancets Start: 10-02-2023 Pen Needle, Diab etic (Comfort Ez Pen [place]) 32 gauge x 5/32 needle Start: 08-13-2023 Lancets Start: 10-02-2023 End: 10-02-2023 Lancets Start: 10-02-2023 End: 10-02-2023 Pen Needle, Diab etic (Comfort Ez Pen [place]) 32 gauge x 5/32 needle Start: 08-12-2023 End: 08-13-2023 Telephone encounter Note 06-17-2023 Telephone Encounter - Ronit Priyank - 06/17/2023 11:38 AM EST Note Date & Type Note Facility 06-17-2023 Telephone encount er Note Pt called back and went over the instructions again for her . She verbalized understanding. [facility] Note 06-17-2023 Telephone Encounter - Ronit Yost - 06/17/2023 11:38 AM ESTTelephone Encounter - Ronit Priyank - 06/17/2023 10:35 AM ESTTelephone Encounter - Ronit Yost - 06/17/2023 10:09 AM EST Note Date & Type Note Facility 06-17-2023 Miscellaneous Notes Formattin g of this note might be different from the original. Pt called back and went over the instructions again for her . She verbalized understanding. Called pt and left vm , explained the instructions below and told her to call if she has any questions about this. Pt called and stated she had Rt hand RF trig sx on 06/11/23 and wondered if she could get a manicure now, and get djiboutian put back on? She has an appt on Thursday and just wanted to make sure. Her call back [phone] documented in this encounter [facility] Telephone encounter Note 06-17-2023 Telephone Encounter - Ronit Yost - 06/17/2023 10:35 AM EST Note Date & Type Note Facility 06-17-2023 Telephone encount er Note Called pt and left vm , explained the instructions below and told her to call if she has any questions about this. [facility] Telephone encounter Note 06-17-2023 Telephone Encounter - Ronit Priyank - 06/17/2023 10:09 AM EST Note Date & Type Note Facility 06-17-2023 Telephone encount er Note Pt called and stated she had Rt hand RF trig sx on 06/11/23 and wondered if she could get a manicure now, and get djiboutian put back on? She has an appt on Thursday and just wanted to make sure. Her call back [phone] [facility] Evaluation note 09-18-2022 Note Date & Type [...] The above visit was done by Dr. Larson. Document reviewed and amended by provider signed [...] breast (ICD-10 - Z12.31) due in October [facility] Other Evaluation note Note Date & Type Note Facility Evaluation note No Information [facility] Other Evaluation note Note Date & Type Note Facility Evaluation note No assessment information availa ble [facility] Work Phone: Evaluation note Note Date & Type Note Facility Evaluation note Diagnosis Onset Date Adult hypothyroidism acute Essential (primary) hypertension acute Hyperlipidemia, unspecified acute Medicare annual wellness visit, subsequent acute Type 2 diabetes mellitus with hyperglycemia acute [facility] Work Phone: History general Narrative - Reported Note Date & Type Note Facility History general Narrative - Reported Type Medical History Diabetes mellitus with hyperglyc emia Medical History Dyslipidemia Medical History Osteopenia Medical History Essential hypertension Medical History Post-menopausal Medical History Adult hypothyroidism Surgical History D&C 2002 Surgical History Surgical History HYSTERECTOMY 2015 Hospitalization History SEE SURGICAL HX [facility] Other Summary Purpose Family History Relationship Condition Age at Onset Recorded Date/T han brother Malignant neoplasm Unknown Unknown Heart disease Unknown father Unknown Hypertension Unknown Not Specified Unknown Alzheimer's dementia Unknown sister Malignant neoplasm Unknown Advance Directives Advance Directive Response Recorded Date/ Time Advance Directives No September 03 024 11:56am Chief Complaint and Reason for Visit Chief Complaint Amb Documentation Bring in urine sample Chief Complaint Amb Documentation Bring in urine sample Amb Documentation wellness Reason for Visit Adult hypothyroidism Essential (primary) hypertension Hyperlipidemia, unspecified Medicare annual wellness visit, subsequent Type 2 diabetes mellitus with hyperglycemia Additional Source Comments INFORMATION SOURCE (unrecogn ized section and content) DATE CREATED AUTHOR 08/07/2018 [facility] DATE CREATED AUTHOR AUTHOR'S ORGANIZ ATION 09/24/2022 [facility] DATE CREATED AUTHOR AUTHOR'S ORGANIZ ATION 06/28/2023 [facility] dical Specialists EPIC REASON FOR VISIT (unrecogniz ed section and content) Reason Onset Date Comments PO Questions 06/17/2023 Care Teams (unrecognized sec tion and content) Rough Planer Tender Relationship Specialty Start Date End Date Merlene Larson MD [address] [place] [address] PCP - General Family Medicine 04/23/23 Rough Planer Tender Relationship Specialty Start Date End Date Merlene Larson MD [address] [place] [address] PCP - General Family Medicine 04/23/23 Team Status: Active Member Role Status Dates Merlene Larson MD Primary Care Provider Active Team Status: Active Member Role Status Dates Merlene Larson MD Primary Care Provider Active Start: July 20, 2023 ROMIE Gonzalez Attending Provider Active Start : July 20, 2023 Team Status: Inactive Member Role Status Dates Merlene Larson MD Primary Care Provide r, Attending Provider Active Start: September 04, 2023 End: September 04, 2023 Team Status: Active Member Role Status Dates Merlene Larson MD Primary Care Provider Active Start: October 02, 2023 Nella Acuna LPN Attending Provider Active S tart: October 02, 2023 Team Status: Inactive Member Role Status Dates Merlene Larson MD Primary Care Provide r, Attending Provider Active Start: October 15, 2023 End: October 15, 2023 Goals (unrecognized section and content) Goals may be documented in a n alternate section FOR RECORDS PERTAINING TO PATIENTS WHO ARE [...] BE BASED ON THE PRIMARY CLINICAL RECORDS. [facility] [email or web address] [facility]. provides no warranty or guarantee of the accuracy or completeness of information in this document.
== END 2023-12-03 12:50 | disposition home or self-care (01) ==
LOC: MAMMO 12:49
PROVIDERS: PCP Family Medicine; Visit Provider Family Medicine
DX: Z12.31 Encounter for screening mammogram for malignant neoplasm of breast (principal); Z80.3 Family history of malignant neoplasm of breast; Z80.8 Family history of malignant neoplasm of other organs or systems
CPT/HCPCS: 77063; 77067

== ENCOUNTER 2024-11-23 09:56 | Outpatient (OUT) | payer MEDICARE, OTHER, SELFPAY ==
--- OUTSIDE RECORDS SUMMARY | 2024-11-23 10:02 | XMS_ITS | Clinical Summary ---
Author Organization [facility] Address [address] [place] [address] Care Team Providers Care Chipper Machine Operator Name Role Phone Unavailable Primary Care Provider Unavailabl e Social History Tobacco Use Types Packs/Day Years Used Date Smoking Tobacco: Never Assessed Comments Unknown Sex and Gender Information Value Date Recorded Sex Assigned at Not on file Legal Sex Female 12:13 AM EDT Gender Identity Not on file Sexual Orientation Not on file Plan of Treatment Not on file
--- OUTSIDE RECORDS SUMMARY | 2024-11-23 10:02 | XMS_ITS | Clinical Summary ---
Author Organization [facility] Address [address] [place] [address] Care Team Providers Care Microelectronics Assembler Name Role Phone Merlene Abbott MD Primary Care Provider [phone] Allergies Active Allergy Reactions Criticality Noted Date Comments Sulfacetamide Hives 04/17/2023 Medications atorvastatin (Lipitor) 20 MG tablet 3 Active glipiZIDE (Glucotrol) 5 MG tablet every 8 (eight) hours Active Accu-Chek Juanis Plus test strip USE TO CHECK BLOOD SUGAR ONCE A DAY*E11.65* 3 Active insulin degludec (Tresiba) 100 UNIT/ML injection as directed Subcutaneous Active BD Pen Needle Keke 2nd Gen 32G X 4 MM misc USE DIRECTED 4 Active Accu-Chek FastClix Lancets misc USE ONCE DAILY 3 Active levothyroxine (Synthroid, Levoxyl) 100 MCG tablet 1 (one) time each day at the same time Active losartan-hydroC HLOROthiazide (Hyzaar) 50-12.5 MG tablet 3 Active metFORMIN (Glucophage) 1000 MG tablet Take 1,000 mg by mouth in the morning and 1,000 mg before bedtime. Active pioglitazone (Actos) 30 MG tablet Take 30 mg by mouth in the morning. 3 Active alendronate (Fosamax) 35 MG tabletIndicatio ns:Osteopenia after menopause PLEASE SEE ATTACHED FOR DETAILED DIRECTIONS 12 tablet 4 4 Active Active Problems No known active problems Family History Medical History Relation Name Comments Heart disease Father Hypertension Father Relation Name Status Comments Father Mother Social History Tobacco Use Types Packs/Day Years Used Date Smoking Tobacco: Never Smokeless Tobacco: Never Tobacco Cessation:Counseling Given: Not Answered Alcohol Use Standard Drinks/Week Comments Yes 1 (1 standard drink = 0.6 oz pur e alcohol) Monthly or less [facility] Answer Date Recorded Q1: How often do you have a drink containing alc ohol? Monthly or less 04/23/2023 Average Number of Drinks Not on file 023 Frequency of Binge Drinking Not on file 04/10 Comments Unknown Sex and Gender Information Value Date Recorded Sex Assigned at Female 12/09/2022 1:00 PM EDT Legal Sex Female 8:25 PM EDT Gender Identity Female 12/09/2022 1:00 PM EDT Sexual Orientation Straight 12/09/2022 1: 00 PM EDT Last Filed Vital Signs Vital Sign Reading Time Taken Comments Blood Pressure 130/74 04/23/2023 2:26 PM EST Pulse - - Temperature - - Respiratory Rate - - Oxygen Saturation - - Inhaled Oxygen Concentration - - Weight 93.4 kg (206 lb) 06/05/2023 9:34 AM EST Height 157.5 cm (5' 2 ) 06/05/2023 9:34 AM EST Body Mass Index 37.68 06/05/2023 9:34 AM EST Plan of Treatment Upcoming Encounters Date Type Department Care Team (Late st Contact Info) Description 04/25/2025 1:00 PM EST Office Visit [facility] [address] [address] Jaimie Enriquez PA [address] [place] [address] Health Maintenance Due Date Last Done Comments Pneumococcal Vaccine: 65+ Ye ars (1 of 1 - PCV) 10/30/1997 Influenza Vaccine (#1) 2025 4, 03/24/2023, 04/09/2022 Colorectal Cancer Screening Discontinued FIT-DNA Discontinued 08/28/2021, 06/29/2018 CT Colonography Discontinued Colonoscopy Discontinued FIT Discontinued FOBT Discontinued Sigmoidoscopy [place] [address] [employer] Care Teams Microelectronics Assembler Relationship Specialty Start Date End Date Merlene Abbott MD PCP - General Family Medicine 04/23/23
--- OUTSIDE RECORDS SUMMARY | 2024-11-23 10:02 | XMS_ITS | Encounter Summary ---
Author Organization [facility] Address [address] [facility] [place] [address] Care Team Providers Care Satellite Installer Name Role Phone Merlene Abbott MD Primary Care Provider [phone] Encounter Details Date Type Department Care Team (Late st Contact Info) Description 05/18/2023 Clinisync Result Encounter [facility] Department Unsolicited Jaimie Ross PA [address] [place], [facility] Social History Tobacco Use Types Packs/Day Years Used Date Smoking Tobacco: Never Alcohol Use Standard Drinks/Week Comments Yes 1 [...] Orientation Straight 12/09/2022 1: 00 PM EDT documented as of this encounter Plan of Treatment Upcoming Encounters Date Type Department Care Team (Late st Contact Info) Description 04/25/2025 1:00 PM EST Office Visit [facility] [address] [place] [id number] Jaimie Ross PA [address] [place] [address] [phone] (work) documented as of this encounter Procedures Procedure Name Priority Date/Time Associated Diagnosis Comments XR DEXA AXIAL SKELETON 05/18/2023 1:38 PM EST documented in this encounter Results * XR DEXA AXIAL SKELETON (05/18/2023 1:38 PM EST) Anatomical Region Laterality Modality Other 05/18/2023 1:38 PM EST Narrative 05/18/2023 1:41 PM EST [address] [address] XRay Report Signed Patient: RAMU MAR MR#: [id number] : 1945 Acct:[id number] Age/Sex: 77 / F ADM Date: 05/18/23 Loc: RAD Attending Dr: Jaimie Ross Ordering Physician: Jaimie Ross Date of Service: 05/18/23 Procedure(s): XR DEXA axial skeleton Accession Number(s): [id number] cc: Jaimie Ross; Merlene Abbott M.D. [address] [address] Patient Name: RAMU MAR MRN: [id number] date: 1945 Sex: F Assigned Patient Location: [facility] Current Patient Location: [facility] Accession/Order Number: [id number] Exam Date: 05/18/2023 13:05 Report Date: 05/18/2023 13:38 At the request of: JAIMIE ROSS Procedure: XR DEXA axial skeleton EXAMINATION: XR DEXA axial skeleton, 05/18/2023 1:05 PM EST HISTORY: Asymptomatic Menopausal State Z78.0 COMPARISON: 2020, 2017, 2011, 2008 TECHNIQUE: Dual-energy X-ray absorptiometry (DEXA) bone density study performed for the axial skeleton. HISTORY: Asymptomatic Menopausal State Z78.0 FINDINGS: Bone mineral density AP spine L1-L4 measures 1.134 g/sq cm. T score -0.5. WHO classification: Normal. Lowest bone mineral density right femoral neck measures 0.828 g/sq cm. T score -1.5. WHO classification: Osteopenia XR/XR DEXA axial skeleton IMPRESSION: Osteopenia. Moderate fracture risk Electronically authenticated by: NICOLE MEJIA Date: 05/18/2023 13:38 Dictated By: Nicole Mejia M.D. Signed By: 05/18/23 1341 DD/ 1338 TD/TT: First Line Production Supervisor: Procedure Note Radiology, Radiologist, MD - 05/18/2023 [place] [address] XRay Report Signed Patient: RAMU MAR AMR#: [id number] : 1945cct:[id number] Age/Sex: 77 / FADM Date: 05/18/23 Loc: [facility] Attending Dr: Jaimie Ross Ordering Physician: Jaimie Ross Date of Service: 05/18/23 Procedure(s): XR DEXA axial skeleton Accession Number(s): [id number] cc: Jaimie Ross; Merlene Abbott M.D. [facility] [place] [id number] Patient Name: RAMU MAR MRN: [id number] date: 1945 Sex: F Assigned Patient Location: [facility] Current Patient Location: [facility] Accession/Order Number: [id number] Exam Date: 05/18/2023 13:05 Report Date: 05/18/2023 13:38 At the request of: JAIMIE ROSS Procedure: XR DEXA axial skeleton EXAMINATION: XR DEXA axial skeleton, 05/18/2023 1:05 PM EST HISTORY: Asymptomatic Menopausal State Z78.0 COMPARISON: 2020, 2018, 2012, 2009 TECHNIQUE: Dual-energy X-ray absorptiometry (DEXA) bone density study performed for the axial skeleton. HISTORY: Asymptomatic Menopausal State Z78.0 FINDINGS: Bone mineral density AP spine L1-L4 measures 1.134 g/sq cm. T score -0.5.WHO classification: Normal. Lowest bone mineral density right femoral neck measures 0.828 g/sq cm. Tscore -1.5. WHO classification: Osteopenia XR/XR DEXA axial skeleton IMPRESSION: Osteopenia. Moderate fracture risk Electronically authenticated by: NICOLE MEJIA Date: 05/18/2023 13:38 Dictated By: Nicole Mejia M.D. Signed By:05/18/23 1341 DD/ 1338 TD/TT: First Line Production Supervisor: us [facility]ie [facility] Final Result documented in this encounter Visit Diagnoses Not on filedocumented in this encounter Care Teams Satellite Installer Relationship Specialty Start Date End Date Merlene Abbott MD PCP - General Family Medicine 04/23/23 documented as of this encounter
--- OUTSIDE RECORDS SUMMARY | 2024-11-23 10:21 | XMS_ITS | CCD ---
Author Organization [facility] Care Team Providers Care Energy Auditor Name Role Phone PHYSICIAN, DEFAULT Admitting Unavailable PHYSICIAN, DEFAULT Attending Unavailable Merlene Larson Unavailable GRANT BAPTISTE Admitting Unavailable NEO, DR MERLENE Reed Primary Care Unavailable GRANT BAPTISTE Attending Unavailable GRANT BAPTISTE Consulting Unavailable NEO, DR MERLENE Reed Primary Care Unavailable HANG ., DR KIM Attending Unavailabl e HANG ., DR KIM Consulting Unavailabl e HANG ., DR KIM Admitting Unavailabl e MARIETTA, DR NICOLE Galvan Consulting Unavailable NEO, DR MERLENE Reed Attending Unavailable NEO, DR MERLENE Reed Consulting Unavailable NEO, DR MERLENE Reed Primary Care Unavailable NEO, DR MERLENE Reed Admitting Unavailable Merlene Larson MD Primary Care Provider AGUILAR SHABAZZ Attending Unavailable JR. GONZALEZ, JHON Ford Attending Unavaila AGUILAR Rowe Attending Unavailable JAIMIE ROSS Attending Unavailable Merlene Larson MD Primary Care Provider Merlene Larson MD Attending Provider Allergies Allergy Classification Reported Allergen(s) Allergy Type Date of Onset Reaction(s) Facility (4 sources) Amoxicillin / Clavulanate Drug Allergy Unknown [facility] [employer] Other (8 sources) Penicillin Drug Allergy Unknown [employer] [facility] Other (8 sources) Sulfamethoxazole / Trimethoprim Drug Allergy Unknown [facility] [employer] Other (8 sources) Sulfonamides (Antibiotic) Propensity to adverse reactions Unknown [facility] [employer] Other (5 sources) Amoxicillin / Clavulanate; Translations: [Augmentin] Drug Allergy 10-07-19 Unknown [facility] (1 source) Sulfonamides (Antibiotic) Drug allergy (disorder) 10-07-19 15 [facility] (3 sources) Angiotensin-convert ing enzyme inhibitor agent Drug allergy Unknown [facility] [employer] Other (3 sources) Substance with penicillin structure and antibacterial mechanism of action (substance) Drug allergy 02-24-20 13 Unknown [facility] Other (3 sources) Substance with sulfonamide structure and antibacterial mechanism of action (substance) Drug allergy SULFA DRUGS [facility] [employer] Other (3 sources) NÉSTOR inhibitor use, contraindication Propensity to adverse reactions 03-23-20 14 Comment:advers e rxn/side effects [facility] Other (3 sources) Allergies Reconciled Propensity to adverse reactions Unknown [facility] [employer] Other (3 sources) patient allergy list reviewed by nurse or physicia Propensity to adverse reactions 04-10-20 Comment:Done [facility] [employer] Other (2 sources) Sulfacetamide Drug Allergy 04-17-20 23 [facility] (3 sources) Amoxicillin Drug Allergy 09-19-19 23 [facility] (3 sources) Angiotensin Converting Enzyme (Néstor) Inhibitors Allergy to substance 09-19-19 [facility] (3 sources) Clavulanate Drug Allergy 09-19-19 23 [facility] (3 sources) Penicillins Allergy to substance 09-19-19 23 [facility] (3 sources) Sulfamethoxazole Drug Allergy 09-19-19 23 [facility] (3 sources) Sulfonamides (Antibiotic) Allergy to substance 09-19-19 [facility] (3 sources) Trimethoprim Drug Allergy 09-19-19 23 [facility] Medications Current Medications Medication Drug Class(es) Dates Sig (Normalized) Sig (Original) alendronic acid 35 mg oral tablet (11 sources) Bisphosphonate Start: 10-15-2023 take 1 tablet by mouth every week Alendronate 35 mg tablet Active 35 MG PO every week October 15, 2023 12:00am [employer] tablet 30 minutes before the first food, beverage or medicine of the day with plain water Orally; Note: Source Status: Taking; Provider: Neo Blunt ( ) Complies with drug therapy Start: 03-18-2023 End: 03-17-2024 take 1 tablet [...] Orally Active atorvastatin 20 mg oral tablet (13 sources) HMG-CoA Reductase Inhibitor Start: 01-12-2024 End: 07-07-2024 Atorvastatin 20 mg tablet Active 0 .ROUTE .COMPLEX 90 July 07, 2024 2:10pm TAKE 1 TABLET DAILY Complies with drug therapy Start: 10-15-2023 End: 01-12-2024 take 1 tablet by mouth once daily Atorvastatin 20 mg tablet Discontinued 20 MG PO Daily October 15, 2023 12:00am January 12, 2024 1:14pm [employer]: TAKE 1 TABLET DAILY; Note: Source Status: Start; Refills: 1; Qty: 90 Tablet; Provider: Neo Blunt ( ) Start: 05-04-2023 atorvastatin ( Lipitor) 20 MG tablet Start: 06-27-2022 take 1 tablet by joe th every twenty-four hours Atorvastatin Calcium 20 MG 1 tablet Orally Once a day for 90 day(s) Jun, Active glipiZIDE 5 mg oral tablet (14 sources) Sulfonylurea Start: 07-20-2023 End: 01-20-2024 Glipizide 5 mg tablet Active 0 .ROUTE .COMPLEX 180 January 20, 2024 8:02am TAKE 1 TABLET TWICE A DAY Complies with drug therapy Start: 07-20-2023 End: 07-20-2023 take 1 tablet by mouth twice daily Glipizide 5 mg tablet Discontinued 5 MG PO Twice daily July [...] / losartan potassium 50 mg oral tablet (12 sources) Thiazide Diuretic, Angiotensin 2 Receptor Megan Start: 04-27-2024 Losartan-Hydrochlorothiazide 50-12.5 mg tablet Active 0 .ROUTE .COMPLEX April 27, 2024 11:50am TAKE 1 TABLET DAILY Complies with drug therapy Start: 10-15-2023 End: 04-27-2024 take 1 tablet by mouth once daily Losartan-Hydrochlorothiazide 50-12.5 mg tablet Discontinued 1 TAB PO Daily October 15, 2023 12:00am April 27, 2024 11:50am Start: 05-09-2023 losartan-hydro CHLOROthiazide (Hyzaar) 50-12.5 MG tablet take 1 tablet by joe th every twenty-four hours Losartan Potassium-HCTZ 50-12.5 MG 1 tab let Orally Once a day Active Insulin Degludec (Tresiba Flextouch U-100) 100 [...] 08, 2023 12:00am September 08, 2023 12:16pm 3 ml insulin glargine 100 unt/ml pen injector (1 source) Insulin Analog Start: 07-05-2024 Insulin Glargi ne (Agagllorenza Yappen U-100 Insulin) 100 unit/mL (3 mL) insulin pen Active 40 UNIT SUBCUT Every morning July 05, 2024 1:00am Complies with drug therapy levothyroxine sodium 0.1 mg oral tablet (17 sources) l-Thyroxine Start: 08-31-2023 End: 08-17-2024 Levothyroxine 100 mcg tablet Active 0 .ROUTE .COMPLEX 90 August 17, 2024 8:30am TAKE 1 TABLET DAILY Complies with drug therapy Start: 08-31-2023 End: 08-31-2023 take 1 tablet by mouth once daily Levothyroxine 100 mcg tablet Discontinued 100 MCG PO Daily August 31, 2023 12:00am August 31, 2023 12:58pm levothyroxine (S ynthroid, Levoxyl) 100 MCG tablet 1 (one) time each day at the same time 0 Active Levothyroxine So dium 100 MCG TAKE 1 TABLET DAILY for 90 Active metFORMIN hydrochloride 1000 mg oral tablet (10 sources) Biguanide Start: 05-25-2024 take 1 tablet by mouth twice daily Metformin 1,000 mg tablet Active 0 .ROUTE .COMPLEX 180 May 25, 2024 1:18pm TAKE 1 TABLET BY MOUTH TWICE A DAY Complies with drug therapy Start: 10-15-2023 End: 05-25-2024 take 1 tablet by mouth twice daily at mealtime Metformin 1,000 mg tablet Discontinued 1000 MG PO Twice daily with meals October 15, 2023 12:00am May 25, 2024 1:18pm Start: 12-08-2022 take 1 tablet by joe th twice daily metFORMIN HCl 1000 MG 1 tablet Orally twice daily for 90 days Nov, Active take 1 tablet by joe th every twenty-four hours metFORMIN HCl 1000 MG 1 tablet with a meal Orally Once a day Active pioglitazone 30 mg oral tablet (15 sources) Peroxisome Proliferator Receptor alpha Agonist, Peroxisome Proliferator Receptor gamma Agonist, Thiazolidinedione Start: 09-07-2023 End: 06-02-2024 take 1 tablet by mouth once daily Pioglitazone 30 mg tablet Active 0 .ROUTE .COMPLEX 90 June 02, 2024 9:25am TAKE 1 TABLET BY MOUTH EVERY DAY Complies with drug therapy Start: 09-07-2023 End: 09-07-2023 take 1 tablet by mouth once daily Pioglitazone 30 mg tablet Discontinued 30 MG PO Daily September 07, 2023 [...] Sig (Original) ciprofloxacin 250 mg oral tablet (5 sources) Quinolone Antimicrobial Start: 09-04-2023 End: 10-15-2023 take 1 tablet by mouth twice daily Ciprofloxacin Hcl 250 mg tablet Discontinued 250 MG PO Twice daily September 04, 2023 12:00am October 15, 2023 1:18pm Start: 01-30-2023 take 1 tablet by joe th every twelve hours Ciprofloxacin HCl 250 MG 1 tablet Orally every 12 hrs for 5 day(s) Jan, Active 3 ml insulin degludec 100 unt/ml pen injector (14 sources) Insulin Analog Start: 10-15-2023 End: 07-05-2024 Insulin Degludec (Tresiba Flextouch U-100) 100 unit/mL (3 mL) insulin pen Discontinued 0 .ROUTE .COMPLEX May 27, 2024 12:56pm July 05, 2024 9:32am INJECT 40 UNITS SUBCUTANEOUSLY ONCE A DAY Start: 09-08-2023 End: 10-15-2023 Insulin Degludec (Tresiba Flextouch U-100) 100 unit/mL (3 mL) insulin pen Discontinued 0 .ROUTE .COMPLEX September 08, 2023 12:16pm October 15, 2023 1:40pm INJECT 38 UNITS SUBCUTANEOUSLY ONCE A DAY insulin degludec (Tresiba) 100 UNIT/ML injection as directed Subcutaneous 0 Active inject 38 [IU] by rose bcutaneous injection once daily Tresiba FlexTouch 100 UNIT/ML INJECT 38 UNITS SUBCUTANEOUSLY ONCE A DAY for 40 Active Tresiba FlexTouc h 100 UNIT/ML INJECT 38 UNITS ONCE DAILY for 39 Active meclizine hydrochloride 25 mg oral tablet (8 sources) Antiemetic Start: 07-11-2022 take 1 tablet by mouth every eight hours as needed Meclizine HCl 25 MG 1 tablet as needed Orally q8h prn for 10 days Jul, Not-Taking Problems Active Problems Problem Classification Problem Date Documented Da te Episodic/Chronic Administrative/social admission (3 sources) Informing health health care assistant of test result; Translations: [Person consulting for explanation of examination or test findings] Episodic Diabetes mellitus with complications (15 sources) Hyperglycemia due to type 2 diabetes mellitus; Translations: [Type 2 diabetes mellitus with hyperglycemia] Chronic Diabetes mellitus without complication (3 sources) Type 2 diabetes mellitus without complication; Translations: [Diabetes mellitus without mention of complication, type II or unspecified type, not stated as uncontrolled] Chronic Disorders of lipid metabolism (19 sources) Dyslipidemia; Translations: [Hyperlipidemia, unspecified] Chronic Essential hypertension (16 sources) Essential hypertension; Translations: [Essential (primary) hypertension] Chronic Menopausal disorders (1 source) Hormone replacement therapy; Translations: [HORMONE REPLACEMENT THERAPY] Onset: 07-07-2022 Episodic Other aftercare (1 source) nursing home (current) use of aspirin; Translations: [ALF CURRENT USE OF ASPIRIN] Onset: 07-07-2022 Episodic Other aftercare (1 source) 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 (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) use of insulin; Translations: [ALF CURRENT USE OF INSULIN] Onset: 07-07-2022 Episodic Other aftercare (1 source) 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 (current) use of oral hypoglycemic drugs; Translations: [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 USE ORAL HYPOGLYCEMIC DX] Onset: 07-07-2022 Episodic Other bone disease and musculoskeletal deformities (8 sources) Osteopenia; Translations: [Other specified disorders of bone density and structure, unspecified site] Episodic Other bone disease and musculoskeletal deformities (3 sources) Bone density finding; Translations: [Other specified disorders of bone density and structure, unspecified site] Episodic Other bone disease and musculoskeletal deformities (1 source) Osteopenia; Translations: [Other specified disorders of bone density and structure, unspecified site] 10-15-2023 Episodic Other circulatory disease (3 sources) Elevated [...] adult] Onset: 07-28-2018 Resolved: 04-08-2021 Chronic Other screening for suspected conditions (not mental disorders or infectious disease) (10 sources) Encounter for screening mammogram for malignant neoplasm of breast; Translations: [Electrocardiogram abnormal] Onset: 07-29-2018 Episodic Other skin disorders (3 sources) Rash and [...] user; Translations: [Tobacco use] Episodic Thyroid disorders (16 sources) Hypothyroidism; Translations: [Hypothyroidism, unspecified] Chronic Viral [...] organs] Onset: 09-27-2014 Resolved: 01-07-2017 Chronic Other upper respiratory infections (3 sources) Acute [...] - challengeon 09-04-2023 Bilirubin Ql (U) Negative [facility] Glucose (U) [Mass/Vol] Negative [facility] Ketones Ql (U) Negative [facility] pH (U) 5 [pH] [facility] Specific gravity (U) [Rel density] 1.025 [facility] Urobilinogen (U) [Mass/Vol] 0.2 mg/dL [facility] - Specimen inform ationon 09-04-2023 Appearance (U) cloudy [facility] Color (U) Yellow [facility] - Urinalysison Leukocyte esterase Test strip Ql (U) ++ [facility] Nitrite Ql (U) Negative [facility] Protein Ql (U) Negative [facility] No Panel Informationon 09-03 Urine Occult Blood ++ [facility] CBC AUTO DIFFon 09-24-2022 BASO # 0.0 103/ul Normal 0.0-0.1 [facility] Comment on above: Performed By: #### C BC #### [facility] [address] [place] [address] Dr. Makenna Smith Basophils/100 WBC (Bld) 0.8 % Normal 0.2-2.0 [facility] Comment on above: Performed By: #### C BC #### [facility] [address] [address] [address] Makenna Smith EO # 0.7 103/ul Normal 0.0-0.7 [facility] Comment on above: Performed By: #### C BC #### [facility] [address] [address] [address] Makenna Smith Eosinophils/100 WBC (Bld) 14.4 % Critically high 0.9-7.0 [facility] Comment on above: Performed By: #### C BC #### [facility] [address] [place] [address] Dr. Makenna Smith Erythrocyte distribution width (RBC) [Ratio] 14.2 % Normal 11.0-15.0 [facility] Comment on above: Performed By: #### C BC #### [facility] [address] [place] [address] Dr. Makenna Smith Hematocrit (Bld) [Volume fraction] 36.1 % Normal 36.0-48.0 [facility] Comment on above: Performed By: #### C BC #### [facility] [address] [place] [address] Dr. Makenna Smith Hemoglobin (Bld) [Mass/Vol] 11.9 g/dL Critically low 12.0-16.0 [facility] Comment on above: Performed By: #### C BC #### [facility] [address] [place] [address] Dr. Makenna Smith IG # 0.03 10e3/ul Normal 0.00-0.03 [facility] Comment on above: Performed By: #### C BC #### [facility] [address] [place] [address] Dr. Makenna Smith IG % 0.6 % Critically high 0.0-0.[address] [facility] Comment on above: Performed By: #### C BC #### [facility] [address] [place] [address] Dr. Makenna Smith LYMPH # 1.4 103/ul Normal 1.2-3.8 [facility] Comment on above: Performed By: #### C BC #### [facility] [address] [place] [address] Dr. Makenna Smith Lymphocytes/100 WBC (Bld) 27.3 % Normal 20.5-60.0 [facility] Comment on above: Performed By: #### C BC #### [facility] [address] [place] [address] Dr. Makenna Smith MANUAL DIFF REQ NO Normal [facility] Comment on above: Performed By: #### C BC #### [facility] [address] [place] [address] Dr. Makenna Smith MCH (RBC) [Entitic mass] 30.4 pg Normal 26.7-34.0 [facility] Comment on above: Performed By: #### C BC #### [facility] [address] [address] [address] Makenna Smith MCHC (RBC) [Mass/Vol] 33.0 g/dL Normal 29.9-35.2 [facility] Comment on above: Performed By: #### C BC #### [facility] [address] [address] [address] Makenna Smith MCV (RBC) [Entitic vol] 92.1 fL Normal 81.0-99.0 [facility] Comment on above: Performed By: #### C BC #### [facility] [address] [address] [address] Makenna Smith MONO # 0.3 103/ul Normal 0.3-0.8 [facility] Comment on above: Performed By: #### C BC #### [facility] [address] [place] [address] Dr. Makenna Smith Monocytes/100 WBC (Bld) 6.4 % Normal 1.7-12.0 [facility] Comment on above: Performed By: #### C BC #### [facility] [address] [address] [address] Makenna Smith NEUT # 2.5 103/ul Normal 1.4-6.5 [facility] Comment on above: Performed By: #### C BC #### [facility] [address] [address] [address] Makenna Smith Neutrophils/100 WBC (Bld) 50.5 % Normal 43.0-75.0 [facility] Comment on above: Performed By: #### C BC #### [facility] [address] [address] [address] Makenna Smith Platelet mean volume (Bld) [Entitic vol] 10.9 fL Normal 9.5-13.5 [facility] Comment on above: Performed By: #### C BC #### [facility] [address] [address] [address] Makenna Smith PLT 141 103/ul Critically low 150-450 [facility] Comment on above: Performed By: #### C BC #### [facility] [address] [place], [place] [address] Dr. Makenna Smith RBC 3.92 106/ul Critically low 4.20-5.[address] [facility] Comment on above: Performed By: #### C BC #### [facility] [address] [place], [place] [address] Dr. Makenna Smith WBC 5.0 103/ul Normal 4.0-11.0 [facility] Comment on above: Performed By: #### C BC #### [facility] [address] [place], [place] [address] Dr. Makenna Smith MG MAMM SCREEN 3D BENY CADon 10-29-2021 MG MAMM SCREEN 3D BENY CAD Patient: RAMU MAR Exam Date: 10/29/2021 : 1945 Gender:F Ordering : DR JULIO MAURICIO . Admission #: [id number] Family : Order #: [id number] CLICK HERE TO VIEW EXAM RADIOLOGY REPORT [...] breast cancer at age 42. LOCATION: [facility] BREAST COMPOSITION: Scattered areas fibroglandular density. [...] MD on 10/29/2021 at 14:10 Normal [facility] Vital Signs Date Time Vital Sign Value Performing Clinician Facility 11-17-2024 13:05-0400 Body height 157.48 cm Merlene Larson MD Work Phone: [facility] 11-17-2024 13:05-0400 Body mass index (BMI) [Ratio] 36.9 kg/m2 Merlene Larson MD Work Phone: [facility] 11-17-2024 13:05-0400 Body weight 91.62 kg Merlene Larson MD Work Phone: [facility] 11-17-2024 13:05-0400 Diastolic blood pressure 75 mm[Hg] Merlene Larson MD Work Phone: [facility] 11-17-2024 13:05-0400 Heart rate 81 /min Merlene Larson MD Work Phone: [facility] 11-17-2024 13:05-0400 Respiratory rate 12 /min Merlene Larson MD Work Phone: [facility] 11-17-2024 13:05-0400 SaO2% (BldA) [Mass fraction] 98 % Merlene Larson MD Work Phone: [facility] 11-17-2024 13:05-0400 Systolic blood pressure 127 mm[Hg] Merlene Larson MD Work Phone: [facility] 10-15-2023 13:09-0400 Body height 157.48 cm [facility] 10-15-2023 13:09-0400 Body mass index (BMI) [Ratio] 37.8 kg/m2 [facility] 10-15-2023 13:09-0400 Body weight 93.89 kg [facility] 10-15-2023 13:09-0400 Diastolic blood pressure 76 mm[Hg] [facility] 10-15-2023 13:09-0400 Heart rate 87 /min [facility] 10-15-2023 13:09-0400 Systolic blood pressure 132 mm[Hg] [facility] 09-18-2022 15:00-0400 Body height 158.75 cm Merlene Larson Other [employer] Other 09-18-2022 15:00-0400 Body mass index (BMI) [Ratio] 37.97 kg/m2 Merlene Larson Other [employer] Other 09-18-2022 15:00-0400 Body weight 95.71 kg Merlene Larson Other [employer] Other 09-18-2022 15:00-0400 Diastolic blood pressure 68 mm[Hg] Merlene Larson Other [employer] Other 09-18-2022 15:00-0400 SaO2% (BldA) [Mass fraction] 97 % Merlene Larson Other [employer] Other 09-18-2022 15:00-0400 Systolic blood pressure 132 mm[Hg] Merlene Larson Other [employer] Other Encounters Encounter Date Encounter Type Care Provider Facility Start: 11-17-2024 End: 11-17-2024 ambulatory Merlene Larson MD Work Phone: [facility] Work Phone: Start: 11-17-2024 End: 11-17-2024 Patient encounter procedure Merlene Larson MD -[facility] Work Phone: Start: 10-15-2023 End: 10-15-2023 ambulatory [facility] Work Phone: Start: 10-15-2023 End: 10-15-2023 Patient encounter procedure [facility] Work Phone: Start: 10-02-2023 Non-patient / Non-visit [facility] Work Phone: Start: 09-04-2023 End: 09-04-2023 ambulatory [facility] Work Phone: Start: 09-04-2023 End: 09-04-2023 Patient encounter procedure [facility] Work Phone: Start: 07-20-2023 Non-patient / Non-visit [facility] Work Phone: Start: 06-26-2023 End: 06-26-2023 ambulatory AGUILAR SHABAZZ Not Available Start: 06-17-2023 Telephone encounter Jr. Jhon Acuna DO Work Phone: [facility] Comment on above: PO Questions Start: 06-05-2023 End: 06-05-2023 ambulatory AGUILAR SHABAZZ Not Available Start: 06-03-2023 End: 06-03-2023 ambulatory JHON JAVIER Not Available Start: 06-01-2023 End: 06-01-2023 ambulatory AGUILAR SHABAZZ Not Available Start: 04-23-2023 End: 04-23-2023 ambulatory JAIMIE ROSS Not Available Start: 02-16-2023 End: 02-16-2023 ambulatory Merlene Larson Other [employer] Other Start: 02-16-2023 Telephone encounter Merlene Larson [facility] Start: 01-30-2023 End: 01-30-2023 ambulatory Merlene Larson Other [employer] Other Start: 01-30-2023 Telephone encounter Merlene Larson [facility] Start: 12-12-2022 Chart abstracting Aguilar sanches PA Work Phone: [facility] Start: 12-08-2022 End: 12-08-2022 ambulatory Merlene Larson Other [employer] Other Start: 12-08-2022 Telephone encounter Merlene Larson [facility] Start: 09-26-2022 End: 09-26-2022 ambulatory Merlene Larson Other [employer] Other Start: 09-26-2022 Telephone encounter Merlene Larson [facility] Start: 09-24-[address] MERLENE LARSON Facil ity:[facility] Start: 09-18-2022 End: 09-18-2022 ambulatory Merlene Larson Other [employer] Other Start: 09-18-2022 Patient encounter procedure Merlene Neo [facility] Start: 07-10-2022 End: 07-10-2022 ambulatory Merlene Larson Other [employer] Other Start: 07-10-2022 Telephone encounter Merlene Larson [facility] Start: 07-05-2022 End: 07-05-2022 ambulatory GRANT BAPTISTE Facility:[facility] Start: 06-27-2022 End: 06-27-2022 ambulatory Merlene Larson Other [facility] [employer] Other Start: 06-27-2022 Telephone encounter Merlene Larson [facility] Start: 06-18-2022 End: 06-18-2022 ambulatory Merlene Neo Other [facility] [employer] Other Start: 06-18-2022 Telephone encounter Merlene Neo [facility] Start: 04-30-2022 Adult health examination Mariangel Larson Other [employer] Other Start: 10-29-2021 End: 10-30-[address] MERLENE LARSON Facility:[facility] Start: 05-01-2021 End: 05-01-2021 Gynecological examination normal Merlene Larson Other [employer] Other Start: 08-03-2018 End: 08-04-2018 Patient encounter procedure DEFAULT PHYSICIAN Facility:[facility] Procedures Date Procedure Procedure Detail Performing Clinician Start: 03-23-2014 End: 04-08-2021 Screening mammography Merlene Neo Other Start: 02-23-2013 End: 04-08-2021 General examination of patient Merlene Neo Other End: 04-08-2021 Depression screening Merlene Larson Other End: 04-08-2021 Screening for malignant neoplasm of breast Merlene Larson Other Screening for malign ant neoplasm of breast Merlene Larson Other End: 04-08-2021 Screening for osteoporosis Merlene Larson Other End: 04-08-2021 Viral screening Merlene Larson Other Plan of Treatment Date Care Activity Detail Author Start: 08-28-2024 Screening for malignant neoplasm of colon [facility] Start: 04-25-2024 End: 04-25-2024 Patient encounter procedure 04/25/2024 1:00 PM EST Office Visit [facility] [address] [id number] Jaimie Ross PA [address] [place] [address] [facility] [facility] Start: 06-26-2023 End: 06-26-2023 Patient encounter procedure 06/26/2023 9:30 AM EST Office Visit [facility] [address] [facility] [address] [place] [id number] Aguilar Shabazz PA [address] [facility] [address] [place] [address] [facility] Start: 10-30-2012 Pneumococcal Vaccine: 65+ Years (1 - PCV) Pneumococcal Vaccine: 65+ Years (1 - PCV) [facility] Start: 1945 Screening for malignant neoplasm of colon [facility] Comprehensive metabo lic 2000 panel - Serum or Plasma [facility] MG Breast - bilatera l Screening [facility] Patient Education Exercises for sciatic pain [facility] Work Phone: [facility] Immunizations Immunization Date Immunization Notes Care Provider Fa cility 10-24-2021 COVID-19 Vaccine Pfi zer - Documentation Purposes Only Merlene Larson Other [facility] 02-25-2021 COVID-19 Vaccine Pfi zer - Documentation Purposes Only Merlene Larson Other [facility] 07-10-2020 COVID-19 Vaccine Pfi zer - Documentation Purposes Only Merlene Larson Other [facility] 06-19-2020 COVID-19 Vaccine Pfi zer - Documentation Purposes Only Merlene Larson Other [facility] 04-10-2015 pneumococcal conjuga te vaccine, 13 valent Merlene Larson Other [facility] 04-10-2015 pneumococcal Conjuga te, unspecified formulation; Translations: [Need for prophylactic vaccination against Streptococcus pneumoniae (pneumococcus)] Merlene Larson Other [employer] Other 02-23-2013 tetanus and diphther ia toxoids, adsorbed, preservative free, for adult use (5 Lf of tetanus toxoid and 2 Lf of diphtheria toxoid) Merlene Larson Other [facility] 10-17-2008 pneumococcal polysaccharide vaccine, 23 valent Merlene Larson Other [facility] Payers Date Payer Category Payer Private Health Insurance ALEXANDER STACKA MEDICARE SUPPLEMENT [id number] 2023-Present [address] [address] [place] [address] Supplement [id number] 2012 Medicare MEDICARE MEDICAR E RAILROAD [id number] 2012-Present JACQUELINE PEREZA RAILROAD MEDICARE [address] [address] [place] [address] Medicare [id number] 1959 Medicare [id number] 1959 Medicare [id number] 1947 Unknown [id number] [id number] .2.647 1947 Unknown [id number] [id number] .2.593 1947 Unknown [id number] 2.16.840.1.930296.3.579 .2.593 1947 Unknown [id number] [id number] .2.593 1947 Unknown [id number] [id number] .2.1259 1947 Unknown [id number] [id number] .2.1259 1947 Unknown [id number] 2.16.840.1.969255.3.579 .2.1259 1947 Unknown [id number] [id number] .2.1259 1947 Unknown [id number] .2.1259 Unknown Social History Date Type Detail Facility Start: 04-23-2023 End: 06-05-2023 Sex Assigned At [facility] Start: 12-11-2022 End: 06-01-2023 Tobacco smoking status MEIS Never smoked tobacco [facility] Start: 06-01-2023 Tobacco use and exposure Smokeless tobacco non-user [facility] Start: 12-11-2022 End: 06-05-2023 Alcohol intake Current drinker of alcohol (finding) [facility] Start: 04-23-2023 End: 06-05-2023 Alcohol intake [facility] How often to you hav e a drink containing alcohol? Monthly or less [facility] Average Number of Drinks Not on file [facility] Start: 12-11-2022 Alcohol Comment Monthly or less [facility] Start: 1945 Sex Assigned At Female [facility] Start: 12-09-2022 Gender identity Identifies as female gender (finding) [facility] Start: 12-09-2022 Sexual orientation Heterosexual (finding) [facility] Tobacco smoking stat NHIS Unknown if ever smoked [facility] Work Phone: Sex Female (finding) [facility] Medical Equipment Procedure Code Equipment Code Equipment Origin al Text Equipment Identifier Dates [id number], [id number], [id number] Start: 08-27-2022 Pen Needle, Diab etic (Comfort Ez Pen Comstock) 32 gauge x 5/32 needle Start: 08-13-2023 Pen Needle, Diab etic (Comfort Ez Pen Comstock) 32 gauge x 5/32 needle Start: 08-12-2023 End: 08-13-2023 Lancets Start: 10-02-2023 Pen Needle, Diab etic (Comfort Ez Pen Comstock) 32 gauge x 5/32 needle Start: 08-13-2023 Lancets Start: 10-02-2023 End: 10-02-2023 Lancets Start: 10-02-2023 End: 10-02-2023 Pen Needle, Diab etic (Comfort Ez Pen Comstock) 32 gauge x 5/32 needle Start: 08-12-2023 End: 08-13-2023 Blood Sugar Diagnostic (Accu-Chek Juanis Plus Test Strp) strip Start: 09-27-2024 Lancets 28 gauge misc Start: 10-02-2023 Pen Needle, Diab etic (Bd Keke 2nd Gen Pen Needle) 32 gauge x 5/32 needle Start: 05-09-2024 Blood Sugar Diagnostic (Accu-Chek Juanis Plus Test Strp) strip Start: 04-01-2024 End: 04-02-2024 Blood Sugar Diagnostic (Accu-Chek Juanis Plus Test Strp) strip Start: 04-02-2024 End: 04-04-2024 Blood Sugar Diagnostic (Accu-Chek Juanis Plus Test Strp) strip Start: 04-04-2024 End: 09-27-2024 Lancets 28 gauge misc Start: 10-02-2023 End: 10-02-2023 Lancets 28 gauge misc Start: 10-02-2023 End: 10-02-2023 Pen Needle, Diab etic (Comfort Ez Pen Comstock) 32 gauge x 5/32 needle Start: 08-12-2023 End: 08-13-2023 Pen Needle, Diab etic (Comfort Ez Pen Comstock) 32 gauge x /32 needle Start: 08-13-2023 End: 05-09-2024 Clinical Notes 09-18-2022 to 06-17-2023 Telephone Encounter - Ronit Yost - 06/17/2023 11:38 AM ESTTelephone Encounter - Ronit Yost - 06/17/2023 11:38 AM ESTTelephone Encounter - Ronit Yost - 06/17/2023 10:35 AM EST Note Date & Type Note Facility 06-17-2023 Telephone encounter Note Form atting of this note might be different from the original. Pt called back and went over the instructions again for her . She verbalized understanding. [facility] 06-17-2023 Miscellaneous Notes Formattin g of this [...] could get a manicure now, and get botswanan put back on? She has an appt on Thursday and just wanted to make sure. Her call back [phone] documented in this encounter [facility] 06-17-2023 Telephone encounter Note Form atting of this note might be different from the original. Called pt and left vm , explained the instructions below and told her to call if she has any questions about this. [facility] 06-17-2023 Telephone encounter Note Form atting of this note might be different from the original. Pt called and stated she had Rt hand RF trig sx on 06/11/23 and wondered if she could get a manicure now, and get botswanan put back on? She has an appt on Thursday and just wanted to make sure. Her call back [phone] [facility] 09-18-2022 Evaluation note Encounter Date Diagnosis Assessment [...] breast (ICD-10 - Z12.31) due in October [facility] Other Evaluation noteNo InformationNortAmerican [facility] Other Evaluation noteNo assessment information available [facility] Work Phone: Evaluation note* Diagnosis Onset Date Resolution Status Adult hypothyroidism acute Essential (primary) hypertension acute Hyperlipidemia, unspecified acute Medicare annual wellness visit, subsequent acute Type 2 diabetes mellitus with hyperglycemia acute [facility] Work Phone: Evaluation note* Diagnosis Onset Date Resolution Status Admit Date Adult hypothyroidism acute November 17, 2024 12:59pm Essential (primary) hypertension acu te November 17, 2024 12:59pm Hyperlipidemia, unspecified acute November 17, 2024 12:59pm Medicare annual wellness vis it, subsequent acute November 17, 2024 12:59pm Screening mammogram for damir st cancer acute November 17, 2024 12:59pm [facility] Work Phone: History general Narrative - Reported* Type Description Date Medical History Diabetes mellitus with hyperglyc emia Medical History Dyslipidemia Medical History Osteopenia Medical History Essential hypertension Medical History Post-menopausal Medical History Adult hypothyroidism Surgical History D&C 2002 Surgical History Surgical History HYSTERECTOMY 2014 Hospitalization History SEE SURGICAL HX [employer] Other Reason for referral (narrative)No reason for referral information availableAcmc [facility] Work Phone: Summary Purpose Family History Relationship Condition Age at Onset Recorded Date/T han brother Malignant neoplasm Unknown Unknown Heart disease Unknown father Unknown Hypertension Unknown Not Specified Unknown Alzheimer's dementia Unknown sister Malignant neoplasm Unknown Relationship Condition Age at Onset Recorded Date/T han brother Malignant neoplasm Unknown Unknown Heart disease Unknown father Unknown Hypertension Unknown mother Unknown Alzheimer's dementia Unknown sister Malignant neoplasm [...] subsequent Type 2 diabetes mellitus with hyperglycemia Chief Complaint Admit Date wellness November 17, 2024 12:5 9pm Reason for Visit Admit Date Adult hypothyroidism November 17, 2024 12: 59pm Essential (primary) hypertension November 172024 12:59pm Hyperlipidemia, unspecified November 17 025 12:59pm Medicare annual wellness visit, subseque nt November 17, 2024 12:59pm Screening mammogram for breast cancer Ju 2024 12:59pm Additional Source Comments INFORMATION SOURCE (unrecogn ized section and content) DATE CREATED AUTHOR 08/07/2018 [facility] DATE CREATED AUTHOR AUTHOR'S ORGANIZ ATION 09/24/2022 [facility] DATE CREATED AUTHOR AUTHOR'S ORGANIZ ATION 06/28/2023 [facility] EPIC REASON FOR VISIT (unrecogniz ed section and content) Reason Onset Date Comments PO Questions 06/17/2023 Care Teams (unrecognized sec tion and content) Team Status: Active Member Role Status Dates Merlene Larson MD Primary Care Provider Active Team Status: Inactive Member Role Status Dates Merlene Larson MD Primary Care Provider Active Start: November 17, 2024 End: November 17, 2024 Merlene Larson MD Attending Provider Active St art: November 17, 2024 End: November 17, 2024 Energy Auditor Relationship Specialty Start Date End Date Merlene Larson MD [address] [place] [id number] PCP - [facility] 04/23/23 Energy Auditor Relationship Specialty Start Date End Date Merlene Larson MD [address] [place] [address] PCP - [facility] 04/23/23 Team Status: Active Member Role [...] October 15, 2023 End: October 15, 2023 Team Status: Inactive Member Role Status Dates Merlene Larson MD Primary Care Provider Active Start: November 17, 2024 End: November 17, 2024 Merlene Larson MD Attending Provider Active St art: November 17, 2024 End: November 17, 2024 Goals (unrecognized section and content) Goals may [...] BE BASED ON THE PRIMARY CLINICAL RECORDS. [facility] [employer]. provides no warranty or guarantee of the accuracy or completeness of information in this document.
[2024-11-23 10:53] LABS: Hematocrit 35.0 % (36.0-48.0); Hemoglobin 11.4 g/dL (12.0-16.0); Immature Granulocytes Abs Auto 0.02 10^3/uL (0.00-0.03); Immature Granulocytes Pct Auto 0.4 % (0.0-0.5); Lymphocytes Absolute Auto 1.7 10^3/uL (1.2-3.8); Mean Corpuscular HGB Conc 32.6 g/dL (29.9-35.2); Mean Corpuscular Hemoglobin 29.8 pg (26.7-34.0); Mean Corpuscular Volume 91.4 fL (81.0-99.0); Platelet Count 143 10^3/uL (150-450); Red Blood Count 3.83 10^6/uL (4.20-5.40); White Blood Count 5.6 10^3/uL (4.0-11.0)
[2024-11-23 11:14] LABS: Alanine Aminotransferase 63 U/L (14-59); Albumin Globulin Ratio 0.9; Albumin Level 3.7 g/dL (3.4-5.0); Alkaline Phosphatase 63 U/L (46-116); Anion Gap 16.1; Aspartate Amino Transferase 45 U/L (15-37); Blood Urea Nitrogen 23.0 mg/dL (7.0-18.0); Calcium 9.4 mg/dL (8.5-10.1); Carbon Dioxide 26.5 mmol/L (21.0-32.0); Chloride 103 mmol/L (98-107); Cholesterol 161 mg/dL (<=200); Estimated GFR (African America >60 (>=60 mL/min/1.73m^2); Estimated GFR (Non-African Ame >60 (>=60 mL/min/1.73m^2); Globulin 4.1 g/dL; Glucose 126 mg/dL (74-106); HDL Cholesterol 38 mg/dL (40-60); Potassium 3.6 mmol/L (3.5-5.1); Sodium 142 mmol/L (136-145); Thyroid Stimulating Hormone 1.533 uIU/mL (0.358-3.740); Total Protein 7.8 g/dL (6.4-8.2); Triglycerides 134 mg/dL (<=150); VLDL CHOLESTEROL 26.8 mg/dL
[2024-11-23 16:36] LABS: Microalbum Creatinine Ratio Ur 30.4 mg/g (0.0-29.9)
== END 2024-11-23 09:57 | disposition home or self-care (01) ==
LOC: LAB 09:58
PROVIDERS: PCP Family Medicine; Visit Provider Family Medicine
DX: Z00.00 Encounter for general adult medical examination without abnormal findings (principal); E11.65 Type 2 diabetes mellitus with hyperglycemia; E78.5 Hyperlipidemia, unspecified; E03.9 Hypothyroidism, unspecified; I10 Essential (primary) hypertension
CPT/HCPCS: 36415; 80053; 80061; 82043; 82570; 83036; 84439; 84443; 85025

== ENCOUNTER 2024-12-14 12:58 | Outpatient (OUT) | payer MEDICARE, OTHER, SELFPAY ==
--- NOTE | 2024-12-14 13:00 | MM_ITS ---
Patient Name: RAMU MAR MR#: [id number] : 1945 Exam Date: 12/14/2024 Ordering Doctor: LAUREN ROSS . RADIOLOGY REPORT PROCEDURE: MM TOMOSYNTHESIS SCREENING BI COMPARISON: MM TOMOSYNTHESIS SCREENING BI, 12/03/2023. MM TOMOSYNTHESIS SCREENING BI, 11/10/2022. MG MAMM SCREEN 3D BENY CAD, 10/29/2021. MG MAMM BENY SCRN W CAD DIG, 03/16/2013. INDICATIONS: Screening for malignant neoplasm Calculator Name NCI Breast Cancer Risk Assessment Tool 5 Year Breast Cancer Risk 3.70% Lifetime Breast Cancer Risk 6.90% Personal Breast Cancer No Personal Ovarian Cancer No Treatments None Family Cancers Sister with breast cancer at age 50; Aunt-maternal with breast cancer at age ~40; Aunt-paternal with breast cancer at age ~40; Brother with esophageal cancer at age 50. LOCATION: [facility] BREAST COMPOSITION: There are scattered areas of fibroglandular density. FINDINGS: DIAGNOSTIC CATEGORY 1--NEGATIVE. RIGHT BREAST: No significant suspicious finding. LEFT BREAST: No significant suspicious finding. RECOMMENDATIONS: ROUTINE MAMMOGRAM AND CLINICAL EVALUATION IN 12 MONTHS. PLEASE NOTE: A NORMAL MAMMOGRAM DOES NOT EXCLUDE THE POSSIBILITY OF BREAST CANCER. A CLINICALLY SUSPICIOUS PALPABLE LUMP SHOULD BE BIOPSIED. Dictated by: Nickolas Blackburn DO on 12/14/2024 at 15:48 Approved by: Nickolas Blackburn DO on 12/14/2024 at 15:48
== END 2024-12-14 12:59 | disposition home or self-care (01) ==
LOC: MAMMO 12:58
PROVIDERS: PCP Family Medicine; Visit Provider Physician Assistant
DX: Z12.31 Encounter for screening mammogram for malignant neoplasm of breast (principal); Z80.3 Family history of malignant neoplasm of breast; Z80.8 Family history of malignant neoplasm of other organs or systems
CPT/HCPCS: 77063; 77067

== ENCOUNTER 2025-05-08 21:21 | Outpatient (REF) | payer MEDICARE, OTHER, SELFPAY ==
--- OUTSIDE RECORDS SUMMARY | 2025-05-08 13:00 | XMS_ITS | Encounter Summary ---
Author Organization [facility] Address [address] [place] [address] Care Team Providers Care Outreach Associate Name Role Phone Merlene Abbott MD Primary Care Provider [phone] Reason for Visit * ReasonCommentsGynecologic Exam Encounter Details DateTypeDepartmentCare Team (Latest Contact Info)Nzscahyhply76/29/2025 1:00 PM ESTOffice Visit [facility] [address] [address] Jaimie Enriquez PA [address] [place], [facility] Well woman exam with routine gynecological exam; H/O: hysterectomy; Breast cancer screening by mammogram; Osteoporosis, post-menopausal; Encounter for screening for osteoporosis Social History Tobacco UseTypesPacks/DayYears UsedDateSmoking Tobacco: NeverSmokeless Tobacco: NeverAlcohol UseStandard Drinks/WeekCommentsYes1 (1 standard drink = 0.6 oz pure alcohol)Monthly or lessAUDIT-CAnswerDate RecordedQ1: How often do you have a drink containing alcohol?Monthly or less04/23/2023verage Number of DrinksNot on file04/23/2023Frequency of Binge DrinkingNot on file04/23/2023Comments UnknownSex and Gender InformationValueDate RecordedSex Assigned at BirthFemale 12/09/2022 1:00 PM EDTLegal RlyZbqpzw39/15/2023 8:25 PM EDTGender IdentityFemale 12/09/2022 1:00 PM EDTSexual JsxqmwzldxfXvanqbid18/01/2023 1:00 PM EDTdocumented as of this encounter Last Filed Vital Signs Vital SignReadingTime TakenCommentsBlood Gqlamjfp114/801 1:10 PM EST Pulse--Temperature--Respiratory Rate--Oxygen Saturation--Inhaled Oxygen Concentration--Rwvbuy03 kg (205 lb)05/08/2025 1:10 PM ESTHeight--Body Mass Index 37.4901 9:34 AM ESTdocumented in this encounter Progress Notes * LAUREN Garcia - 05/08/2025 1:00 PM EST Reason for Appointment: Patient ID: Kiera Garcia is a 79 y.o. female who presents for Gynecologic Exam Patient presents today for Annual Exam. MEDICATIONS Current Outpatient Medications Medication Instructions Accu-Chek Juanis Plus test strip USE TO CHECK BLOOD SUGAR ONCE A DAY*E11.65* Accu-Chek FastClix Lancets misc USE ONCE DAILY alendronate (Fosamax) 35 MG tablet TAKE 1 TABLET BY MOUTH IN MORNING WEEKLY. NO FOOD/DRINK/ LYING DOWN FOR 30 MINUTES atorvastatin (Lipitor) 20 MG tablet BD Pen Needle Keke 2nd Gen 32G X 4 MM misc USE DIRECTED glipiZIDE (Glucotrol) 5 MG tablet Every 8 hours insulin glargine (Basaglar KwikPen) 100 UNIT/ML pen Subcutaneous, Nightly levothyroxine (Synthroid, Levoxyl) 100 MCG tablet Every 24 hours losartan-hydroCHLOROthiazide (Hyzaar) 50-12.5 MG tablet metFORMIN (GLUCOPHAGE) 1,000 mg, Oral, 2 times daily pioglitazone (ACTOS) 30 mg, Oral, Daily ALLERGIES Allergies Allergen Reactions Sulfacetamide Hives PROBLEMS Active Ambulatory Problems Diagnosis Date Noted No Active Ambulatory Problems Resolved Ambulatory Problems Diagnosis Date Noted No Resolved Ambulatory Problems Past Medical History: Diagnosis Date Diabetes (HCC) High cholesterol HTN (hypertension) Hypothyroid Osteopenia HISTORY PAST MEDICAL HISTORY SOCIAL HISTORY Past Medical History: Diagnosis Date Diabetes (HCC) High cholesterol HTN (hypertension) Hypothyroid Osteopenia Social History Tobacco Use Smoking status: Never Smokeless tobacco: Never Substance Use Topics Alcohol use: Yes Alcohol/week: 1.0 standard drink of alcohol Types: 1 Standard drinks or equivalent per week Comment: Monthly or less Drug use: Not on file FAMILY HISTORY Family History Problem Relation Name Age of Onset Hypertension Father Heart disease Father SURGICAL HISTORY Past Surgical History: Procedure Laterality Date SECTION, LOW TRANSVERSE x3 (1979, 1984, 1987) HYSTERECTOMY 2015 TRIGGER FINGER RELEASE Right 06/11/2023 (R) RF ; DR ROTH REVIEW OF SYSTEMS Review of Systems: Review of Systems All other systems reviewed and are negative. OBJECTIVE Objective: Physical Exam Constitutional: Appearance: Normal appearance. She is well-developed. Genitourinary: Vulva normal. Cervix is absent. Uterus is absent. Cardiovascular: Rate and Rhythm: Normal rate and regular rhythm. Pulmonary: Effort: Pulmonary effort is normal. Breath sounds: Normal breath sounds. Abdominal: General: Bowel sounds are normal. There is no distension. Palpations: Abdomen is soft. Tenderness: There is no abdominal tenderness. There is no guarding or rebound. Musculoskeletal: General: No swelling. Normal range of motion. Right lower leg: No edema. Left lower leg: No edema. Neurological: Mental Status: She is alert and oriented to person, place, and time. Skin: General: Skin is warm and dry. Psychiatric: Mood and Affect: Mood normal. Behavior: Behavior normal. Vitals and nursing note reviewed. Exam conducted with a radiology aide present. Vitals: Estimated body mass index is 37.49 kg/m?? as calculated from the following: Height as of 06/05/23: 5' 2 . Weight as of this encounter: 205 lb. BP: 138/80 No LMP recorded (lmp unknown). Patient has had a hysterectomy. Assessment/Plan ICD-10-CM 1. Well woman exam with routine gynecological exam Z01.419 THIN PREP TIS PAP AND HR HPV DNA 2. H/O: hysterectomy Z90.710 THIN PREP TIS PAP AND HR HPV DNA DEXA bone density 3. Breast cancer screening by mammogram Z12.31 Bilateral screening mammogram Bilateral screening mammogram 4. Osteoporosis, post-menopausal M81.0 DEXA bone density 5. Encounter for screening for osteoporosis Z13.820 DEXA bone density Assessment/Plan Annual: Patient presents today for an annual exam. Patient states she is doing well and has no complaints. Pap was obtained without difficulty and patient given mammogram/Dexa scan order to have scheduled/obtained. Orders Placed This Encounter Procedures Bilateral screening mammogram DEXA bone density Follow Up: Patient is to return in one year for annual unless needed otherwise. Documented by Laura May MA on behalf of: LAUREN Garcia documented in this encounter Plan of Treatment NameTypePriorityAssociated DiagnosesOrder ScheduleBilateral screening mammogram ImagingRoutine Breast cancer screening by mammogram Expected: 05/08/2025 (Approximate), Expires: 07/08/2026THIN PREP TIS PAP AND HR HPV DNAPathology and CytologyRoutine Well woman exam with routine gynecological exam H/O: hysterectomy Ordered: 05/08/2025DEXA bone densityImagingRoutine H/O: hysterectomy Osteoporosis, post-menopausal Encounter for screening for osteoporosis Expected: 05/08/2025 (Approximate), Expires: 05/08/2026documented as of this encounter Visit Diagnoses Diagnosis Well woman exam with routine gynecological exam Routine gynecological examination H/O: hysterectomy Acquired absence of both cervix and uterus Breast cancer screening by mammogram Osteoporosis, post-menopausal Senile osteoporosis Encounter for screening for osteoporosis documented in this encounter Care Teams Team MemberRelationshipSpecialtyStart DateEnd Date Merlene Abbott MD [address] [place] [id number] PCP - GeneralFamily Sdkcbylf88/6/25documented as of this encounter
--- OUTSIDE RECORDS SUMMARY | 2025-05-08 21:27 | XMS_ITS | Encounter Summary ---
Author Organization [facility] Address [address] [place] [address] Care Team Providers Care Shadow Graph Weight Operator Name Role Phone Merlene Abbott MD Primary Care Provider [phone] Encounter Details DateTypeDepartmentCare Team (Latest Contact Info)Samzduduvbq61/29/2025Bamboo flowsheet [facility] [address] [place] [address] Jaimie Enriquez PA [address] [place], [facility] Social History Tobacco UseTypesPacks/DayYears UsedDateSmoking Tobacco: NeverSmokeless Tobacco: NeverAlcohol UseStandard Drinks/WeekCommentsYes1 (1 standard drink = 0.6 oz pure alcohol)Monthly or lessAUDIT-CAnswerDate RecordedQ1: How often do you have a drink containing alcohol?Monthly or less04/23/2023verage Number of DrinksNot on file04/23/2023Frequency of Binge DrinkingNot on file04/23/2023Comments UnknownSex and Gender InformationValueDate RecordedSex Assigned at BirthFemale 12/09/2022 1:00 PM EDTLegal PzzVcezuf23/15/2023 8:25 PM EDTGender IdentityFemale 12/09/2022 1:00 PM EDTSexual GdqkbfylxvlHwhoufdi02/01/2023 1:00 PM EDTdocumented as of this encounter Plan of Treatment Not on file documented as of this encounter Visit Diagnoses Not on filedocumented in this encounter Care Teams Team MemberRelationshipSpecialtyStart DateEnd Date Merlene Abbott MD [address] [place] [address] PCP - GeneralFamily Bhlnngog71/6/25documented as of this encounter
--- OUTSIDE RECORDS SUMMARY | 2025-05-08 21:27 | XMS_ITS | Clinical Summary ---
Author Organization [facility] Address [address] [place] [address] Care Team Providers Care Research Animal Facility Supervisor Name Role Phone Merlene Abbott MD Primary Care Provider [phone] Allergies Active AllergyReactionsCriticalityNoted YghbIyyokxgjFlwwlhsplbfqbLaqxo56/08/2023 Medications MedicationSigDispense QuantityRefillsLast FilledStart DateEnd DateStatus atorvastatin (Lipitor) 20 MG tablet 05/04/2023ctive glipiZIDE (Glucotrol) 5 MG tablet every 8 (eight) hoursActive Accu-Chek Juanis Plus test strip USE TO CHECK BLOOD SUGAR ONCE A DAY*E11.65*04/06/2023ctive BD Pen Needle Keke 2nd Gen 32G X 4 MM misc USE BDLOURBI64/04/2024ctive Accu-Chek FastClix Lancets misc USE ONCE DAILY03/12/2023ctive levothyroxine (Synthroid, Levoxyl) 100 MCG tablet 1 (one) time each day at the same timeActive losartan-hydroCHLOROthiazide (Hyzaar) 50-12.5 MG tablet 05/09/2023ctive metFORMIN (Glucophage) 1000 MG tablet Take 1,000 mg by mouth in the morning and 1,000 mg before bedtime.Active pioglitazone (Actos) 30 MG tablet Take 30 mg by mouth in the morning.03/12/2023ctive insulin glargine (Basaglar KwikPen) 100 UNIT/ML pen Inject under the skin at bedtimeActive alendronate (Fosamax) 35 MG tablet Indications:Osteopenia after menopauseTAKE 1 TABLET BY MOUTH IN MORNING WEEKLY. NO FOOD/DRINK/ LYING DOWN FOR 30 MINUTES 12 tablet 411/21/2025Active Active Problems No known active problems Encounters DateTypeDepartmentCare VpuvFmlferkplcp21/29/2025 1:00 PM ESTOffice Visit [facility] [address] [place] [address] [place] [address] Jaimie Ross PA Well woman exam with routine gynecological exam; H/O: hysterectomy; Breast cancer screening by mammogram; Osteoporosis, post-menopausal; Encounter for screening for buevfwdmrnxw41/29/2025amboo flowsheet [facility] [address] [place] [address] [place] [address] Jaimie Ross PA 05/08/20257239Ywddcr61/21/2025Refill [facility] [address] [place] [address] [place] [address] Jaimie Ross PA Osteopenia after apjzpdeil71/12/2025 1:45 PM ESTOffice Visit [facility] [address] [place] [address] Anthony Shabazz PA Thumb pain, left (Primary Dx); Trigger finger of left thumb03/22/2025amb flowsheet [facility] [address] [place] [address] Antohny Shabazz PA 03/22/2025Travelfrom Last 3 Months Family History Medical HistoryRelationNameCommentsHeart diseaseFatherHypertensionFatherRelation NameStatusCommentsFatherDeceasedMotherDeceased Social History Tobacco UseTypesPacks/DayYears UsedDateSmoking Tobacco: NeverSmokeless Tobacco: Never Tobacco Cessation:Counseling Given: Not Answered Alcohol UseStandard Drinks/WeekCommentsYes1 (1 standard drink = 0.6 oz pure alcohol)Monthly or lessAUDIT-CAnswerDate RecordedQ1: How often do you have a drink containing alcohol?Monthly or less04/23/2023verage Number of DrinksNot on file04/23/2023Frequency of Binge DrinkingNot on file04/23/2023Comments UnknownSex and Gender InformationValueDate RecordedSex Assigned at BirthFemale 12/09/2022 1:00 PM EDTLegal PgkNefzjx63/15/2023 8:25 PM EDTGender IdentityFemale 12/09/2022 1:00 PM EDTSexual YeglbssdukaQacxsptw37/01/2023 1:00 PM EDT Last Filed Vital Signs Vital SignReadingTime TakenCommentsBlood Jlujnzpy821/801 1:10 PM EST Pulse--Temperature--Respiratory Rate--Oxygen Saturation--Inhaled Oxygen Concentration--Mvppgq41 kg (205 lb)05/08/2025 1:10 PM AXXJcoodk447.5 cm (5' 2 ) 06/05/2023 9:34 AM ESTBody Mass Index37.49006/05/2023 9:34 AM EST Plan of Treatment Health MaintenanceDue DateLast DoneCommentsPneumococcal Vaccine: 65+ Years (3 of 3 - PCV20 or PCV21)/05/2014, 10/17/2008Colorectal Cancer Screening DiscontinuedFIT-LBQYfurxpuhftwv85/20/2022, 06/29/2018MammogramDiscontinued 12/14/2024Influenza WdqjlsuXagqbwudf44/04/2025, 12/30/2023, 03/24/2023, Additional history existsCT ColonographyDiscontinuedColonoscopyDiscontinuedFIT DiscontinuedFOBTDiscontinuedSigmoidoscopyDiscontinued Procedures Procedure NamePriorityDate/TimeAssociated DiagnosisCommentsPR INJECTION 1 TENDON SHEATH/LIGAMENT EGYWSANYHGBKqxohem87/12/2025 2:23 PM EST Trigger finger of left thumb MM TOMOSYNTHESIS SCREENING BI12/14/2024 3:49 PM EDT from Last 3 Months or Most Recently Relevant to Health Maintenance Results * AL INJECTION 1 TENDON SHEATH/LIGAMENT APONEUROSIS (03/22/2025 2:23 PM EST) Narrative Anthony Shabazz PA - 03/22/2025 2:23 PM EST LAUREN Suarez 03/22/2025 7:17 PM Tendon Sheath Inj (CPT 42684 Only): L thumb A1 on 03/22/2025 2:23 PM Indications: pain, tendon swelling, diagnostic and therapeutic benefit Details: 25 G needle, volar approach Medications: 20 mg methylPREDNISolone Acetate 20 MG/ML; 0.5 mL bupivacaine PF 0.5 % Outcome: tolerated well, no immediate complications Procedure, treatment alternatives, risks and benefits explained, specific risks discussed. Consent was given by the patient. Patient was prepped and draped in the usual sterile fashion. Authorizing ProviderResult TypeResult StatusMatthew Augustus Harris PAIN CLINIC/BEDSIDE PERFORMABLESFinal Result * MM TOMOSYNTHESIS SCREENING BI (12/14/2024 3:49 PM EDT)Anatomical Region LateralityModalityOtherSpecimen (Source)Anatomical Location / Laterality Collection Method / VolumeCollection TimeReceived Time12/14/2024 3:49 PM EDT Narrative 12/14/2024 3:49 PM EDT [facility] ?[address] ? [place] [address] ? Mammography Report ? Signed ? Patient: RAMU MAR ?MR#: [id number] ?? : 1945 ?Acct:[id number] ?? Age/Sex: 79 / F ?ADM Date: 12/14/24 ?? Loc: MAMMO ? Attending Dr: Jaimie Ross ? Ordering Physician: Jaimie Ross ?Results: ? Date of Service: 12/14/24 ?Follow Up: ? Procedure(s): MM tomosynthesis screening BI ?? Accession Number(s): [id number] ? cc: Jaimie Ross; Merlene Abbott M.D. ? Patient Name: ? RAMU MAR ? MR#: [id number] ? : 1945 ? Exam Date: 12/14/2024 ?? Ordering Doctor: LAUREN ROSS . ? RADIOLOGY REPORT ? PROCEDURE: ? MM TOMOSYNTHESIS SCREENING BI ? COMPARISON: ? MM TOMOSYNTHESIS SCREENING BI, 12/03/2023. ??MM TOMOSYNTHESIS ?? SCREENING BI, 11/10/2022. ??MG MAMM SCREEN 3D BENY CAD, 10/29/2021. ??MG MAMM BENY ?? SCRN W CAD DIG, 03/16/2013. ? INDICATIONS: ? Screening for malignant neoplasm ? Calculator Name ? NCI Breast Cancer Risk Assessment Tool ?? 5 Year Breast Cancer Risk ? 3.70% ?? Lifetime Breast Cancer Risk ? 6.90% ?? Personal Breast Cancer ?No ?? Personal Ovarian Cancer ? No ?? Treatments ? None ?? Family Cancers ? Sister with breast cancer at age 50; Aunt-maternal with ?? breast cancer at age ??40; Aunt-paternal with breast cancer at age ??40; ?? Brother with esophageal cancer at age 50. ? LOCATION: ? [facility] ? BREAST COMPOSITION: ? There are scattered areas of fibroglandular density. ? FINDINGS: ? DIAGNOSTIC CATEGORY 1--NEGATIVE. ? RIGHT BREAST: ??No significant suspicious finding. ? LEFT BREAST: ??No significant suspicious finding. ? RECOMMENDATIONS: ? ROUTINE MAMMOGRAM AND CLINICAL EVALUATION IN 12 MONTHS. ? PLEASE NOTE: ??A NORMAL MAMMOGRAM DOES NOT EXCLUDE THE POSSIBILITY OF BREAST ?? CANCER. ??A CLINICALLY SUSPICIOUS PALPABLE LUMP SHOULD BE BIOPSIED. ? Dictated by: Nickolas Blackburn DO on 12/14/2024 at 15:48 ? Approved by: Nickolas Blackburn DO on 12/14/2024 at 15:48 ? Dictated By: ?Nickolas Blackburn M.D. ? Signed By: ?12/14/249 ? DD/ ? TD/TT: ? Test Engine Evaluator: Procedure Note Radiology, Radiologist, MD - 12/14/2024 [place] [address] Mammography Report Signed Patient: RAMU MAR AMR#: [id number] : 8Acct:[id number] Age/Sex: 79 / FADM Date: 12/14/24 Loc: MAMMO Attending Dr: Jaimie Ross Ordering Physician: Jaimie RossResults: Date of Service: 12/14/24Follow Up: Procedure(s): MM tomosynthesis screening BI Accession Number(s): [id number] cc: Jaimie Ross; Merlene Abbott M.D. Patient Name: RAMU MAR MR#: [id number] : 1945 Exam Date: 12/14/2024 Ordering Doctor: LAUREN ROSS . RADIOLOGY REPORT PROCEDURE: MM TOMOSYNTHESIS SCREENING BI COMPARISON: MM TOMOSYNTHESIS SCREENING BI, 12/03/2023. MMTOMOSYNTHESIS SCREENING BI, 11/10/2022. MG MAMM SCREEN 3D BENY CAD, 10/29/2021. MG MAMMBIL SCRN W CAD DIG, 03/16/2013. INDICATIONS: Screening for malignant neoplasm Calculator Name NCI Breast Cancer Risk Assessment Tool 5 Year Breast Cancer Risk 3.70% Lifetime Breast Cancer Risk 6.90% Personal Breast Cancer No Personal Ovarian Cancer No Treatments None Family Cancers Sister with breast cancer at age 50; Aunt-maternal with breast cancer at age 40; Aunt-paternal with breast cancer at age 40; Brother with esophageal cancer at age 50. LOCATION: [facility] BREAST COMPOSITION: There are scattered areas of fibroglandulardensity. FINDINGS: DIAGNOSTIC CATEGORY 1--NEGATIVE. RIGHT BREAST: No significant suspicious finding. LEFT BREAST: No significant suspicious finding. RECOMMENDATIONS: ROUTINE MAMMOGRAM AND CLINICAL EVALUATION IN 12 MONTHS. PLEASE NOTE: A NORMAL MAMMOGRAM DOES NOT EXCLUDE THE POSSIBILITY OFBREAST CANCER. A CLINICALLY SUSPICIOUS PALPABLE LUMP SHOULD BE BIOPSIED. Dictated by: Nickolas Blackburn DO on 12/14/2024 at 15:48 Approved by: Nickolas Blackburn DO on 12/14/2024 at 15:48 Dictated By: Nickolas Blackburn M.D. Signed By:12/14/24 1549 DD/ 1549 TD/TT: Test Engine Evaluator: Authorizing ProviderResult TypeResult StatusAmy Mina PACLINISYNC IMAGINGFinal Result from Last 3 Months or Most Recently Relevant to Health Maintenance Insurance * Guarantor: Nader Mar TypeRelation to PatientDate of BirthPhone Billing AddressPersonal/ZzltylReka[birth year][address] [address] [place] [address] [place] [address] Care Teams Team MemberRelationshipSpecialtyStart DateEnd Merlene Abbott MD [address] [place] [phone] PCP - GeneralFamily Rsnvbtwl15/6/25
--- OUTSIDE RECORDS SUMMARY | 2025-05-08 21:27 | XMS_ITS | Encounter Summary ---
Author Organization [facility] Address [address] [facility] [place] [address] Care Team Providers Care Geodetic Technician Name Role Phone Merlene Abbott MD Primary Care Provider [phone] Encounter Details DateTypeDepartmentCare Team (Latest Contact Info)Rzxpfirwiid41/29/2025Travel Social History Tobacco UseTypesPacks/DayYears UsedDateSmoking Tobacco: NeverSmokeless Tobacco: NeverAlcohol UseStandard Drinks/WeekCommentsYes1 (1 standard drink = 0.6 oz pure alcohol)Monthly or lessAUDIT-CAnswerDate RecordedQ1: How often do you have a drink containing alcohol?Monthly or less3Average Number of DrinksNot on file04/23/2023Frequency of Binge DrinkingNot on file3Comments UnknownSex and Gender InformationValueDate RecordedSex Assigned at BirthFemale 12/09/2022 1:00 PM EDTLegal WtuTdljuc91/15/2023 8:25 PM EDTGender IdentityFemale 12/09/2022 1:00 PM EDTSexual XnvsbuveksdCtcmpqtf37/01/2023 1:00 PM EDTdocumented as of this encounter Plan of Treatment Not on file documented as of this encounter Visit Diagnoses Not on filedocumented in this encounter Care Teams Team MemberRelationshipSpecialtyStart DateEnd Date Merlene Abbott MD [address] [facility] [place] [address] PCP - GeneralFamily Hbjwdeox61/6/25documented as of this encounter
--- OUTSIDE RECORDS SUMMARY | 2025-05-08 21:27 | XMS_ITS | Clinical Summary ---
Author Organization [facility] Address [address] [place] [address] Care Team Providers Care Automotive Fuel Injection Servicer Name Role Phone Unavailable Primary Care Provider Unavailabl e Social History Tobacco UseTypesPacks/DayYears UsedDateSmoking Tobacco: Never Assessed CommentsUnknownSex and Gender InformationValueDate RecordedSex Assigned at Not on fileLegal HyaDvpeyg83/30/2022 12:13 AM EDTGender IdentityNot on file Sexual OrientationNot on file Plan of Treatment Not on file
--- OUTSIDE RECORDS SUMMARY | 2025-05-08 21:28 | XMS_ITS | CCD ---
Author Organization [facility] Care Team Providers Care Shell Worker Name Role Phone PHYSICIAN, DEFAULT Admitting Unavailable PHYSICIAN, DEFAULT Attending Unavailable Merlene Larson Unavailable GRANT BAPTISTE Admitting Unavailable NEO, DR MERLENE Reed Primary Care Unavailable GRANT BAPTISTE Attending Unavailable GRANT BAPTISTE Consulting Unavailable NEO, DR MERLENE Reed Primary Care Unavailable HANG ., DR KIM Attending Unavailabl e KARSTAN ., DR KIM Consulting Unavailabl e HANG ., DR KIM Admitting Unavailabl e COLTON, DR NICOLE Galvan Consulting Unavailable NEO, DR MERLENE Reed Attending Unavailable NEO, DR MERLENE Reed Consulting Unavailable NEO, DR MERLENE Reed Primary Care Unavailable NEO, DR MERLENE Reed Admitting Unavailable Merlene Larson MD Primary Care Provider AGUILAR SHABAZZ Attending Unavailable JR. GONZALEZ, JHON Ford Attending Unavaila ble AGUILAR SHABAZZ Attending Unavailable JAIMIE ROSS Attending Unavailable Merlene Larson MD Primary Care Provider [phone] Merlene Larson MD Attending Provider Merlene Larson MD Primary Care Provider [phone] Merlene Larson MD Primary Care Provider [phone] Gabby Morris APRN Attending Provider Gabby Morris Attending Unavailable Gabby Morris Admitting Unavailable Allergies Allergy ClassificationReported Allergen(s)Allergy TypeDate of OnsetReaction(s) Facility (4 sources)Amoxicillin / ClavulanateDrug AllergyVisitar Other (8 sources)PenicillinDrug AllergyVisitar Other (8 sources)Sulfamethoxazole / TrimethoprimDrug AllergyVisitar Other (8 sources)Sulfonamides (Antibiotic)Propensity to adverse reactions[facility] [employer] Other (5 sources)Amoxicillin / Clavulanate; Translations: [Augmentin]Drug Allergy 78-80-8555XfmhzsuTcbKeenan Private Hospital Repository (1 source)Sulfonamides (Antibiotic)Drug allergy (disorder)72-72-8734[facility] Repository (3 sources)Angiotensin-converting enzyme inhibitor agentDrug allergyUnkShriners Hospitals for Children [employer] Other (3 sources)Substance with penicillin structure and antibacterial mechanism of action (substance)Drug upmgsip43-67-9676YkxigutYfkxf [employer] Other (3 sources)Substance with sulfonamide structure and antibacterial mechanism of action (substance)Drug allergySULFA DRUGSZumbrota [employer] Other (3 sources)NÉSTOR inhibitor use, contraindicationPropensity to adverse reactions 08-10-0400Sxfhprt:adverse rxn/side effectsZumbrota [employer] Other (3 sources)Allergies ReconciledPropensity to adverse reactionsBarnes-Jewish [facility] [employer] Other (3 sources)patient allergy list reviewed by nurse or physiciaPropensity to adverse sxanyhkez88-72-7997Ostkfbj:[facility] [employer] Other (4 sources)SulfacetamideDrug Bycygsv23-71-6177FugyiOXFA [facility] (6 sources)Amoxicillin; Translations: [amoxicillin]Drug Vzeeecl83-67-9244EilrtMetrohealth Parma Medical Center (6 sources)Angiotensin Converting Enzyme (Néstor) Inhibitors; Translations: [NÉSTOR Inhibitors]Allergy to -16-3896CyajrXfllqeopbMercy Health – The Jewish Hospital (6 sources)Clavulanate; Translations: [clavulanic acid]Drug Znozgnr68-64-4342 [facility] (6 sources)Penicillins; Translations: [Penicillins]Allergy to substance 37-75-9698XwlkfHpsphemgpMercy Health – The Jewish HospitalComment on above:pt denies (6 sources)Sulfamethoxazole; Translations: [sulfamethoxazole]Drug Allergy 09-96-0859KouwvDiigbvtxsMercy Health – The Jewish Hospital (6 sources)Sulfonamides (Antibiotic); Translations: [Sulfa (Sulfonamide Antibiotics)]Allergy to wrplyeeko98-22-8333PLTLW DRUGSChillicothe Va Medical Center (6 sources)Trimethoprim; Translations: [trimethoprim]Drug Vilsxie24-73-3644OvzcaMetrohealth Parma Medical Center Medications Current Medications MedicationDrug Class(es)DatesSig (Normalized)Sig (Original)alendronic acid 35 mg oral tablet (14 sources)BisphosphonateStart: 08-09-8256lobcxonulkt (Fosamax) 35 MG tablet Indications: Osteopenia after menopause PLEASE SEE ATTACHED FOR DETAILED DIRECTIONS 12 tablet 4 02/11/2024 ActiveStart: 78-11-4213mgtf 1 tablet by mouth every weekStart: 03-18-2023 End: 59-54-1244gqci 1 tablet by mouth in the morningalendronate (Fosamax) 35 MG tablet Indications: Osteopenia after menopause Take 1 tablet (35 mg) bymouth every 7 (seven) days. Take in the morning with a full glass of water, on an empty stomach, and do not take anything else by mouth or lie down for the next 30 min. 51 tablet 0 03/18/2023 03/17/2024 Activetake 1 tablet by mouth once dailyAlendronate Sodium 35 MG 1 tablet 30 minutes before the first food, beverage or medicine of the daywith plain water Orally Activeciprofloxacin 500 mg oral tablet (11 sources)Quinolone AntimicrobialStart: 03-12-2025 End: 70-49-8600pltg 1 tablet by mouth twice dailyStart: 09-04-2023 End: 08-60-2772sbvf 1 tablet by mouth twice dailyCiprofloxacin Hcl 250 mg tablet Discontinued 250 MG PO Twice daily 10 September 03, 2023 11:00pm October 15, 2023 12:18pmStart: 84-98-8702fvuo 1 tablet by mouth every twelve hoursCiprofloxacin HCl 250 MG 1 tablet Orally every 12 hrs for 5 day(s) Jan, Active glipiZIDE 5 mg oral tablet (20 sources)SulfonylureaStart: 07-20-2023 End: 65-00-2060Grhrt: 07-20-2023 End: 81-14-7355bwgl 1 tablet by mouth twice dailyGlipizide 5 mg tablet Discontinued 5 MG PO Twice daily July 19, 2023 11:00pm July 20, 2023 12: 09pmStart: 21-56-9656hjkc 1 tablet by mouth once daily 30 minutes before breakfastglipiZIDE 5 MG 1 tablet 30 minutes before breakfast Orally Once a day for 90 days Nov, ActiveglipiZIDE (Glucotrol) 5 MG tablet every 8 (eight) hours ActiveglipiZIDE 5 MG TAKE 1 TABLET TWICE A DAY for 90 Active hydroCHLOROthiazide 12.5 mg / losartan potassium 50 mg oral tablet (17 sources)Thiazide Diuretic, Angiotensin 2 Receptor BlockerStart: 04-27-2024 Start: 10-15-2023 End: 28-24-9925kfhk 1 tablet by mouth once dailyLosartan-Hydrochlorothiazide 50- 12.5 mg tablet Discontinued 1 TAB PO Daily October 14, 2023 11:00pm April 27, 2024 10:50amStart: 93-68-6690pqaqwywy-hydroCHLOROthiazide (Hyzaar) 50-12.5 MG tablet 05/09/2023 Activetake 1 tablet by mouth every twenty-four hoursLosartan Potassium-HCTZ 50-12.5 MG 1 tablet Orally Once a day ActiveInsulin Degludec (Tresiba Flextouch U-100) 100 unit/mL (3 mL) insulin pen (3 sources)Start: 02-06-7533Nfpszme Degludec (Tresiba Flextouch U-100) 100 unit/mL (3 mL) insulin pen Active 0 .ROUTE .COMPLEX October 15, 2023 1:40pm INJECT 40 UNITS SUBCUTANEOUSLY ONCE A DAYStart: 09-08-2023 End: 32-69-1563Qzlitdk Degludec (Tresiba Flextouch U-100) 100 unit/mL (3 mL) insulin pen Discontinued 0 .ROUTE .COMPLEX September 08, 2023 12:16pm October 15, 2023 1:40pm INJECT 38 UNITS SUBCUTANEOUSLY ONCE A DAYStart: 09-08-2023 End: 02-40-0435Yknpdxw Degludec (Tresiba Flextouch U-100) 100 unit/mL (3 mL) insulin pen Discontinued 38 UNIT SUBCUT Daily September 08, 2023 12:00am September 08, 2023 12:16pm3 ml insulin glargine 100 unt/ml pen injector (5 sources)Insulin AnalogStart: 07-05-2024 End: 52-87-9592cgbJLLQMC hydrochloride 1000 mg oral tablet (15 sources)BiguanideStart: 04-01-7306hkfe 1 tablet by mouth twice dailyStart: 12-08-2022 End: 54-38-5040blfr 1 tablet by mouth twice daily at mealtimeMetformin 1,000 mg tablet Discontinued 1000 MG PO Twice daily with meals October 14, 2023 11:00pm May 25, 2024 12:18pmtake 1 tablet by mouth every twenty-four hours metFORMIN HCl 1000 MG 1 tablet with a meal Orally Once a day Active Completed/Discontinued Medications MedicationDrug Class(es)DatesSig (Normalized)Sig (Original)atorvastatin 20 mg oral tablet (20 sources)HMG-CoA Reductase InhibitorStart: 01-12-2024 End: 46-61-5922Rvlwqqpueuqq 20 mg tablet Discontinued 0 .ROUTE .COMPLEX 90 1 July 07, 2024 1:10pm January 04, 2025 7:35am TAKE 1 TABLET DAILYStart: 05-04-2023 End: 25-75-9969vcpj 1 tablet by mouth once dailyAtorvastatin 20 mg tablet Discontinued 20 MG PO Daily October 14, 2023 11:00pm January 12, 2024 12:14pm FreeTextSig: TAKE 1 TABLET DAILY; Note: Source Status: Start; Refills: 1; Qty: 90 Tablet; Provider: Neo Blunt ( )Start: 19-12-0681zvil 1 tablet by mouth every twenty-four hoursAtorvastatin Calcium 20 MG 1 tablet Orally Once a day for 90 day(s) Jun, Active3 ml insulin degludec 100 unt/ml pen injector (20 sources)Insulin AnalogStart: 10-15-2023 End: 22-68-9668Lfvkuya Degludec (Tresiba Flextouch U-100) 100 unit/mL (3 mL) insulin pen Discontinued 0 .ROUTE .COMPLEX 15 2 May 27, 2024 11:56am July 05, 2024 8:32am INJECT 40 UNITS SUBCUTANEOUSLY ONCEA DAYStart: 09-08-2023 End: 45-40-1820Uighqov Degludec (Tresiba Flextouch U-100) 100 unit/mL (3 mL) insulin pen Discontinued 0 .ROUTE .COMPLEX 15 3 September 08, 2023 11:16am October 15, 2023 12:40pm INJECT 38 UNITS SUBCUTANEOUSLY ONCE A DAYinsulin degludec (Tresiba) 100 UNIT/ML injection as directed Subcutaneous Activeinsulin degludec (Tresiba) 100 UNIT/ML injection as directed Subcutaneous 0 Activeinject 38 [IU] by subcutaneous injection once dailyTresiba FlexTouch 100 UNIT/ML INJECT 38 UNITS SUBCUTANEOUSLY ONCE A DAY for 40 ActiveTresiba FlexTouch 100 UNIT/ML INJECT 38 UNITS ONCE DAILY for 39 Activelevothyroxine sodium 0.1 mg oral tablet (20 sources)l-ThyroxineStart: 08-31-2023 End: 66-09-0099Mfljkmuoszbqq 100 mcg tablet Discontinued 0 .ROUTE .COMPLEX 90 1 August 17, 2024 7:30am February 03, 2025 10:18am TAKE 1 TABLET DAILYStart: 08-31-2023 End: 88-75-8923rzvk 1 tablet by mouth once dailyLevothyroxine 100 mcg tablet Discontinued 100 MCG PO Daily August 30, 2023 11:00pm August 31, 2023 11:58am Levothyroxine Sodium 100 MCG TAKE 1 TABLET DAILY for 90 Activemeclizine hydrochloride 25 mg oral tablet (8 sources)AntiemeticStart: 93-02-4621mbjw 1 tablet by mouth every eight hours as neededMeclizine HCl 25 MG 1 tablet as needed Orally q8h prn for 10 days Jul, Not-Takingpioglitazone 30 mg oral tablet (20 sources)Peroxisome Proliferator Receptor alpha Agonist, Peroxisome Proliferator Receptor gamma Agonist, ThiazolidinedioneStart: 09-07-2023 End: 38-23-1264ytkr 1 tablet by mouth once dailyPioglitazone 30 mg tablet Discontinued 0 .ROUTE .COMPLEX 90 1 June 02, 2024 8:25am November 28, 2024 10:41am TAKE 1 TABLET BY MOUTH EVERY DAYStart: 03-12-2023 End: 91-91-2248kxto 1 tablet by mouth once dailyPioglitazone 30 mg tablet Discontinued 30 MG PO Daily September 06, 2023 11:00pm September 07, 2023 1:14pmtake 1 tablet by mouth once dailyPioglitazone HCl 30 MG TAKE 1 TABLET BY MOUTH EVERY DAY for 90 Active Problems Active Problems Problem ClassificationProblemDateDocumented DateEpisodic/Chronic Administrative/social admission (3 sources)Informing health animal care assistant of test result; Translations: [Person consulting for explanationof examination or test findings]Episodic Diabetes mellitus with complications (17 sources)Hyperglycemia due to type 2 diabetes mellitus; Translations: [Type 2 diabetes mellitus with hyperglycemia]ChronicDiabetes mellitus without complication (3 sources)Type 2 diabetes mellitus without complication; Translations: [Diabetes mellitus without mention of complication, type II or unspecified type, not stated as uncontrolled]ChronicDisorders of lipid metabolism (20 sources)Dyslipidemia; Translations: [Hyperlipidemia, unspecified]Chronic Essential hypertension (18 sources)Essential hypertension; Translations: [Essential (primary) hypertension]ChronicGenitourinary symptoms and ill-defined conditions (4 sources)Dysuria; Translations: [Dysuria]Onset: 08-03-2013 Resolved: 88-03-3995InxgunelWjbixaymcq disorders (1 source)Hormone replacement therapy; Translations: [HORMONE REPLACEMENT THERAPY]Onset: 48-91-2343GvwpqoodRtemc aftercare (1 source)long term care administrator (current) use of aspirin; Translations: [SNF CURRENT USE OF ASPIRIN]Onset: 43-61-1524TtymsmnxWcqgq aftercare (1 source)long term care administrator (current) use of insulin; Translations: [SNF CURRENT USE OF INSULIN]Onset: 68-42-4261NiczopkaFzuwy aftercare (1 source)long term care administrator (current) use of oral hypoglycemic drugs; Translations: [MEDICAL DOCTOR NUCLEAR MEDICINE USE ORAL HYPOGLYCEMIC DX]Onset: 77-95-2623WqoeofbzEfsti aftercare (2 sources)Long-term current use of insulin; Translations: [long term care administrator (current) use of insulin]43-19-8323MleynnoqAqgbr bone disease and musculoskeletal deformities (8 sources)Osteopenia; Translations: [Other specified disorders of bone density and structure, unspecified site]EpisodicOther bone disease and musculoskeletal deformities (3 sources)Bone density finding; Translations: [Other specified disorders of bone density and structure, unspecified site]EpisodicOther bone disease and musculoskeletal deformities (3 sources)Osteopenia; Translations: [Other specified disorders of bone density and structure, unspecified site]68-09-4599WggsvakuRkuzq circulatory disease (3 sources)Elevated blood-pressure reading without diagnosis of hypertension; Translations: [Elevated blood-pressure reading, without diagnosis of hypertension]EpisodicOther connective tissue disease (3 sources)Acquired trigger finger; Translations: [Trigger finger, right ring finger]EpisodicOther injuries and conditions due to external causes (3 sources)History of fall; Translations: [History of falling]EpisodicOther nutritional; endocrine; and metabolic disorders (6 sources)Obese class II; Translations: [Body mass index (BMI) 38.0-38.9, adult] Resolved: 92-32-4477FamglwmOwlsv nutritional; endocrine; and metabolic disorders (6 sources)Body mass index 30+ - obesity; Translations: [Body mass index (BMI) 30.0-30.9, adult]Onset: 07-28-2018 Resolved: 78-89-1953NcwuzbdKdhiv nutritional; endocrine; and metabolic disorders (5 sources)Obesity; Translations: [Obesity, unspecified] Resolved: 738814-15-8157SsdrmkcTczzt screening for suspected conditions (not mental disorders or infectious disease) (12 sources)Encounter for screening mammogram for malignant neoplasm of breast; Translations: [Electrocardiogram abnormal]Onset: 58-75-5610BamspvohTmkro skin disorders (3 sources)Rash and other nonspecific skin eruption; Translations: [RASH OTH NONSPECIFIC SKIN ERUPTION]Onset: 74-46-3785WxxqctkiGrbsm upper respiratory infections (3 sources)Chronic sinusitis; Translations: [Chronic sinusitis, unspecified] ChronicResidual codes; unclassified (11 sources)Postmenopausal state; Translations: [Asymptomatic menopausal state] EpisodicResidual codes; unclassified (3 sources)Family history of stroke; Translations: [Family history of stroke] EpisodicResidual codes; unclassified (3 sources)Family history of breast cancer; Translations: [Family history of malignant neoplasm of breast]EpisodicResidual codes; unclassified (3 sources)Tobacco user; Translations: [Tobacco use]EpisodicSpondylosis; intervertebral disc disorders; other back problems (2 sources)Sciatica; Translations: [Sciatica, right side]98-80-3405Ywliofnl Thyroid disorders (18 sources)Hypothyroidism; Translations: [Hypothyroidism, unspecified]Chronic Urinary tract infections (2 sources)Urinary tract infectious disease; Translations: [Urinary tract infection, site not specified]67-72-8729PrpveohdFsomi infection (9 sources)Herpes zoster; Translations: [Other postherpetic nervous system involvement]Onset: 22-68-8269Lqxbflhe Past or Other Problems Problem ClassificationProblemDateDocumented DateEpisodic/ChronicAbdominal pain (6 sources)Left lower quadrant pain; Translations: [Left lower quadrant pain] Onset: 08-03-2013 Resolved: 93-50-0964EsidaqzmVxglvtuh of mouth; excluding dental (3 sources)Sialoadenitis; Translations: [Sialoadenitis]Onset: 08-70-0943Kbcmpvnx Disorders of teeth and jaw (3 sources)Jaw pain; Translations: [Jaw pain]Onset: 10-92-3836CpkezqtwJhgtzqvhin disorders (6 sources)Postmenopausal bleeding; Translations: [Postmenopausal bleeding] Onset: 04-26-2014 Resolved: 40-92-9230GmcjhuqXkxps aftercare (3 sources)History and physical examination, follow-up; Translations: [Encounter for follow-up examination after completed treatment for conditions other than malignant neoplasm] Resolved: 74-37-2486SkzeeibaYhwpc connective tissue disease (3 sources)Medial epicondylitis of left humerus; Translations: [Medial epicondylitis, left elbow]Onset: 12-27-2014 Resolved: 28-93-1024CfqnwhslHmfcp connective tissue disease (3 sources)Pain in limb; Translations: [Pain in right lower leg]Onset: 64-98-6453GkckalwcNbqch female genital disorders (3 sources)Hypertrophy of uterus; Translations: [Hypertrophy of uterus]Onset: 05-14-2014 Resolved: 43-42-1554YtnaasvoVkctg gastrointestinal disorders (3 sources)Functional diarrhea; Translations: [Functional diarrhea] Resolved: 73-98-8102ZzoidonaAztms non-traumatic joint disorders (3 sources)Arthralgia of the upper arm; Translations: [Pain in left elbow]Onset: 35-48-4598GvlhugfeBwvrj nutritional; endocrine; and metabolic disorders (3 sources)Overweight; Translations: [Overweight] Resolved: 97-32-3141SmsbdymuIfcbz screening for suspected conditions (not mental disorders or infectious disease) (3 sources)Imaging of genitourinary system abnormal; Translations: [Nonspecific (abnormal) findings on radiological and other examination of genitourinary organs]Onset: 09-27-2014 Resolved: 94-70-6165XxgskvnQlknc upper respiratory infections (3 sources)Acute sinusitis; Translations: [Acute sinusitis, unspecified]Onset: 41-85-1528AytlpkbgViuowxqw codes; unclassified (1 source)Family history of malignant neoplasm of breast; Translations: [FAMILY HX MALIG NEOPLASM OF BREAST]Onset: 43-42-6750UjodnkejLvpgwvrdy and history of mental health and substance abuse codes (3 sources)Encounter for screening examination for other mental health and behavioral disorders; Translations:[Mental health screening] Resolved: 96-84-4039Usitvmlp Results Test NameValueInterpretationReference RangeFacilityLaboratory - Chemistry and Chemistry - challengeOrdered By: Gabby Morris on 08-05-9873Rahheueof Ql (U) NegativeChillicothe Va Medical CenterGlucose (U) [Mass/Vol]250 mg/dL [facility] CenterKetones Ql (U)[facility] HospitalpH (U)7.0 [pH][facility] Medical Centerpecific gravity (U) [Rel density]1.025[facility] CenterLaboratory - Specimen informationOrdered By: Gabby Morris on 26-15-2652Ipqkfkrvnn (U)clearChillicothe Va Medical CenterColor (U)yellowChillicothe Va Medical Center Laboratory - UrinalysisOrdered By: Gabby Morris on 35-76-5274Fgchixfka esterase Test strip Ql (U)smallChillicothe Va Medical CenterNitrite Ql (U)Negative [facility] CenterProtein Ql (U)[facility] HospitalNo Panel InformationOrdered By: Gabby Morris on 96-22-0698Avlte Occult BloodmoderateChillicothe Va Medical CenterUrine Urobilinogen0.2EU/dL [facility] Medical CenterUrine Cultureon 10-09-7602Tywcobjs identified Cx Nom (U)ORGANISM: Escherichia coli (MDRO) (O:ESCCOLMDRO) [place] Count >100,000 Aerobic SUSANNA Charge (NMIC56) SUSCEPTIBILITY ORGANISM: O:ESCCOLMDRO ANTIBIOTIC INTERPRETATION SUSANNA Amikacin S <16 Amoxacillin/K Clavulanate I 1616/8 Ampicillin R >16 Ampicillin/Sulbactam R >16 Aztreonam S <4 Cefazolin S 8 Cefepime S <2 Ceftazidime S <1 Ceftazidime/Avibactam S <4 Ceftolozane/Tazobactam S <2 Ceftriaxone S <1 Cefuroxime S <4 Ciprofloxacin S <0.25 Ertapenem S <0.5 Gentamicin R >8 Levofloxacin S <0.5 Meropenem S <1 Meropenem/Vaborbactam S <2 Nitrofurantoin S <32 Piperacillin/Tazobactam S <8 Tetracycline S <4 Tigecycline S <2 Tobramycin I 8 Trimethoprim/Sulfamethoxazole R >2 S = SUSCEPTIBLE I = INTERMEDIATE R = RESISTANT BLANK = DATA NOT AVAILABLE, OR DRUG NOT ADVISABLE OR TESTED R* = RESISTANCE DUE TO EXTENDED SPECTRUM BETA-LACTAMASES ESBL = EXTENDED SPECTRUM BETA-LACTAMASE TFG = THYMIDINE-DEPENDENT STRAIN ADAMS = BETA-LACTAMASE POSITIVE IB = INDUCIBLE BETA-LACTAMASE. APPEARS IN PLACE OF 'S' WITH SPECIES KNOWN TO POSSESS INDUCIBLE BETA-LACTAMASES. POTENTIALLY THEY MAY BECOME RESISTANT TO ALL B-LACTAM DRUGS. PERFORMED BY: [place] [address] PATHOLOGIST CAMPAIGN CONSULTANT ADALBERTO MUNOZ M.D.NormalThe [facility] Hospital Physician GroupComment on above: Performed By: #### CUU #### [place] [address] [place] TOMOSYNTHESIS SCREENING BIon 02-13-4730[place] [address] Mammography Report Signed Patient: RAMU MAR MR#: [id number] : 1945 Acct:[id number] Age/Sex: 79 / F ADM Date: 12/14/24 Loc: MAMMO Attending Dr: Jaimie Ross Ordering Physician: Jaimie Ross Results: Date of Service: 12/14/24 Follow Up: Procedure(s): MM tomosynthesis screening BI Accession Number(s): [id number] cc: Jaimie Ross; Merlene Larson M.D. Patient Name: RAMU MAR MR#: [id number] : 1945 Exam Date: 12/14/2024 Ordering Doctor: LAUREN ROSS . RADIOLOGY REPORT PROCEDURE: MM TOMOSYNTHESIS SCREENING BI COMPARISON: MM TOMOSYNTHESIS SCREENING BI, 12/03/2023. MM TOMOSYNTHESIS SCREENING BI, 11/10/2022. MG MAMM SCREEN 3D BENY CAD, 10/29/2021. MG MAMM BENY SCRN W CAD DIG, 03/16/2013. INDICATIONS: Screening [...] esophageal cancer at age 52. LOCATION: [facility] BREAST COMPOSITION: There are scattered areas of fibroglandular density. FINDINGS: DIAGNOSTIC CATEGORY 1--NEGATIVE. RIGHT BREAST: No [...] 15:48 Dictated By: Nickolas Blackburn M.D. Signed By: 12/14/24 1549 DD/ 1549 TD/TT: Scouring Train Operator:TBHRadiology, Radiologist, MD - 12/14/2024 [place] [address] Mammography Report Signed Patient: RAMU MAR MR#: [id number] : 1945 Acct:[id number] Age/Sex: 79 / F ADM Date: 12/14/24 Loc: MAMMO Attending Dr: Jaimie Ross Ordering Physician: Jaimie Ross Results: Date of Service: 12/14/24 Follow Up: Procedure(s): MM tomosynthesis screening BI Accession Number(s): [id number] cc: Jaimie Ross; Merelne Larson M.D. Patient Name: RAMU MAR MR#: [id number] : 1945 Exam Date: 12/14/2024 Ordering Doctor: LAUREN ROSS . RADIOLOGY REPORT PROCEDURE: MM TOMOSYNTHESIS SCREENING BI COMPARISON: MM TOMOSYNTHESIS SCREENING BI, 12/03/2023. MM TOMOSYNTHESIS SCREENING BI, 11/10/2022. MG MAMM SCREEN 3D BENY CAD, 10/29/2021. MG MAMM BENY SCRN W CAD DIG, 03/16/2013. INDICATIONS: Screening [...] esophageal cancer at age 52. LOCATION: [facility] BREAST COMPOSITION: There are scattered areas of fibroglandular density. FINDINGS: DIAGNOSTIC CATEGORY 1--NEGATIVE. RIGHT BREAST: No [...] 15:48 Dictated By: Nickolas Blackburn M.D. Signed By: 12/14/24 1549 DD/ 1549 TD/TT: Scouring Train Operator: MARIA L [facility] Children'S HospitalRadiology Study observation (narrative)[facility] TOMOSYNTHESIS SCREENING BIOrdered By: Radiologist Radiology on 51-63-7624QXJK [employer] Work Phone: Laboratory - Chemistry and Chemistry - challengeon 92-19-0909Yozmighhp Ql (U)NegativeChillicothe Va Medical CenterGlucose (U) [Mass/Vol]NegativeChillicothe Va Medical CenterKetones Ql (U)Negative [facility] CenterpH (U)5 [pH][facility] Specific gravity (U) [Rel density]1.025[facility] Urobilinogen (U) [Mass/Vol]0.2 mg/dLChillicothe Va Medical CenterLaboratory - Specimen informationon 88-21-4861Ntzhcmsxri (U)cloudyChillicothe Va Medical CenterColor (U)YellowChillicothe Va Medical CenterLaboratory - Urinalysison 78-02-9062Pznrzkoyp esterase Test strip Ql (U)++[facility] Medical CenterNitrite Ql (U)NegativeChillicothe Va Medical CenterProtein Ql (U)[facility] HospitalNo Panel Informationon 09-04-2023 Urine Occult Blood++[facility] Medical CenterXR DEXA AXIAL SKELETONon 02-86-1998[place] [id number] XRay Report Signed Patient: RAMU MAR MR#: [id number] : 1945 Acct:[id number] Age/Sex: 77 / F ADM Date: 05/18/23 Loc: RAD Attending Dr: Jaimie Ross Ordering Physician: Jaimie Ross Date of Service: 05/18/23 Procedure(s): XR DEXA axial skeleton Accession Number(s): [id number] cc: Jaimie Ross; Merlene Larson M.D. [address] [address] Patient Name: RAMU MAR MRN: [id number] date: 1945 Sex: F Assigned Patient Location: RAD Current Patient Location: [facility] Accession/Order Number: [id number] Exam Date: 05/18/2023 13:05 Report Date: 05/18/2023 13:38 At the request of: JAIMIE ROSS Procedure: XR DEXA axial skeleton EXAMINATION: XR DEXA axial skeleton, 05/18/2023 1:05 PM EST HISTORY: Asymptomatic Menopausal State Z78.0 COMPARISON: 2020, 2017, 2008 TECHNIQUE: Dual-energy X-ray absorptiometry (DEXA) bone [...] Signed By: 05/18/23 1341 DD/ 1338 TD/TT: Scouring Train Operator:TBHRadiology, Radiologist, - 05/18/2023 [place] [address] XRay Report Signed Patient: RAMU MAR MR#: [id number] : 1945 Acct:[id number] Age/Sex: 77 / F ADM Date: 05/18/23 Loc: [facility] Attending Dr: Jaimie Ross Ordering Physician: Jaimie Ross Date of Service: 05/18/23 Procedure(s): XR DEXA axial skeleton Accession Number(s): [id number] cc: Jaimie Ross; Merlene Larson M.D. 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 Makenna SmithBasophils/100 WBC (Bld)0.8 %Normal0.2-2.0The [facility] Comment on above:Performed By: #### CBC #### [facility] [address] [address] [address] Makenna Solorio #0.7 103/ulNormal0.0-0.7The [facility] HospitalComment on above: Performed By: #### CBC #### [facility] [address] [address] [address] Makenna Aguilaosinophils/100 WBC (Bld)14.4 %Critically high0.9-7.0The [facility] HospitalComment on above:Performed By: #### CBC #### [facility] [address] [address] [address] Makenna Aguilarythrocyte distribution width (RBC) [Ratio]14.2 %Vfjseo91.0-15.0 The [facility] HospitalComment on above:Performed By: #### CBC #### [facility] [address] [place] [address] Dr. Makenna SmithHematocrit (Bld) [Volume fraction]36.1 %Jfobdo97.0-48.0The [facility] HospitalComment on above:Performed By: #### CBC #### [facility] [address] [place] [address] Dr. Makenna SmithHemoglobin (Bld) [Mass/Vol]11.9 g/dLCritically low12.0-16.0The [facility] HospitalComment on above:Performed By: #### CBC #### [facility] [address] [place] [address] Dr. Makenna Phillips #0.03 10e3/ulNormal0.00-0.03The [facility] HospitalComment on above:Performed By: #### CBC #### [facility] [address] [place] [address] Dr. Makenna Phillips %0.6 %Critically high0.0-0.5The [facility] HospitalComment on above:Performed By: #### CBC #### [facility] [address] [place] [address] Dr. Makenna Matta #1.4 103/ulNormal1.2-3.8The [facility] HospitalComment on above:Performed By: #### CBC #### [facility] [address] [place] [address] Dr. Makenna Mckeonhocytes/100 WBC (Bld)27.3 %Ytthjj68.5-60.0The [facility] HospitalComment on above:Performed By: #### CBC #### [facility] [address] [place] [address] Dr. Makenna CarrasquilloUAL DIFF REQNONormalThe [facility] HospitalComment on above: Performed By: #### CBC #### [facility] [address] [place] [address] Dr. Makenna Cowart (RBC) [Entitic mass]30.4 gaJdpmqa57.7-34.0The [facility] HospitalComment on above:Performed By: #### CBC #### [facility] [address] [place] [address] Dr. Makenna Philippe (RBC) [Mass/Vol]33.0 g/nQWqjxiq95.9-35.2The [facility] HospitalComment on above:Performed By: #### CBC #### [facility] [address] [place] [address] Dr. Makenna Philippe (RBC) [Entitic vol]92.1 iBUuvrtq64.0-99.0The [facility] HospitalComment on above:Performed By: #### CBC #### [facility] [address] [place] [address] Dr. Makenna Jones #0.3 103/ulNormal0.3-0.8The [facility] HospitalComment on above:Performed By: #### CBC #### [facility] [address] [place] [address] Dr. Makenna Pelayoocytes/100 WBC (Bld)6.4 %Normal1.7-12.0The [facility] Comment on above:Performed By: #### CBC #### [facility] [address] [place] [address] Dr. Makenna Zamorano #2.5 103/ulNormal1.4-6.5The [facility] HospitalComment on above:Performed By: #### CBC #### [facility] [address] [place] [address] Dr. Makenna Bradshawophils/100 WBC (Bld)50.5 %Paafrx08.0-75.0The [facility] HospitalComment on above:Performed By: #### CBC #### [facility] [address] [place] [address] Dr. Makenna Martinezlet mean volume (Bld) [Entitic vol]10.9 fLNormal9.5-13.5The [facility] HospitalComment on above:Performed By: #### CBC #### [facility] [address] [place] [address] Dr. Makenna SmithPLT141 103/ulCritically akk436-666Aak [facility] HospitalComment on above:Performed By: #### CBC #### [facility] [address] [address] [address] Makenna SmithRBC3.92 106/ulCritically low4.20-5.40The [facility] HospitalComment on above:Performed By: #### CBC #### [facility] [address] Makenna SmithWBC5.0 103/ulNormal4.0-11.0The [facility] HospitalComment on above: Performed By: #### CBC #### [facility] [address] [place] [address] Dr. Makenna SmithMG MAMM SCREEN 3D BENY CADon 50-03-5614JI MAMM SCREEN 3D BENY CAD Patient: RAMU MAR Exam Date: 10/29/2021 : 1945 Gender:F Ordering : DR JULIO MAURICIO . Admission #: [id number] Family : Order #: [id number] CLICK HERE TO VIEW EXAM RADIOLOGY REPORT [...] breast cancer at age 42. LOCATION: [facility] BREAST COMPOSITION: Scattered areas fibroglandular density. [...] LUMP SHOULD BE BIOPSIED. Dictated by: Nicole Mejia MD on 10/29/2021 at 13:56 Approved by: Nicole Mejia MD on 10/29/2021 at 14:10[facility] Vital Signs Date TimeVital SignValuePerforming KfnqpuakdPzqbepxv93-55-5970 11:17-0500Body .48 cmMerlene Larson MD Work Phone: [phone]11-02-2025 11:17-0500 Body mass index (BMI) [Ratio]37.3 kg/u4UnuytjMerlene Larson MD Work Phone: 1(124)[address] [place], [place] 4003611-02-2025 11:17-0500 Body qjptbbjplgi42.9 [degF]Merlene Larson MD Work Phone: 1(375)[address] [place], [place] 4003611-02-2025 11:17-0500 Body dilxfp82.64 kgMerlene aLrson MD Work Phone: 1(506)[address] [place], [place] 4003611-02-2025 11:17-0500 Diastolic blood bbiawayi38 mm[Hg]Merlene Larson MD Work Phone: 1(186)[address] [place], [place] 4003611-02-2025 11:17-0500 Heart rate88 /Jared Larson MD Work Phone: 1(106)[address] [place], [place] 4003611-02-2025 11:17-0500 Respiratory rate16 /Jared Larson MD Work Phone: 1(640)[address] [place], [place] 4003611-02-2025 11:17-0500 SaO2% (BldA) [Mass fraction]99 %Merlene Larson MD Work Phone: 1(380)[address] [place], [place] 4003611-02-2025 11:17-0500 Systolic blood mm[Hg]Merlene Larson MD Work Phone: 1(405)[address] [place], [place] 4003607-10-2025 13:05-0400 Body oadzpi145.48 cmMerlene Larson MD Work Phone: 1(157)[address] [place], [place] 4003607-10-2025 13:05-0400 Body mass index (BMI) [Ratio]36.9 kg/a7TdtaulMerlene Larson MD Work Phone: 1(423)[address] [place], [place] 4003607-10-2025 13:05-0400 Body xdobxp16.62 kgMerlene Larson MD Work Phone: [facility]07-10-2025 13:05-0400 Diastolic blood wyzbdidg12 mm[Hg]Merlene Larson MD Work Phone: [phone]07-10-2025 13:05-0400 Heart rate81 /Jared Larson MD Work Phone: [phone]07-10-2025 13:05-0400 Respiratory rate12 /Jared Larson MD Work Phone: 1(337)297-[address] [place], [place] 2968507-10-2025 13:05-0400 SaO2% (BldA) [Mass fraction]98 %Merlene Larson MD Work Phone: [phone]07-10-2025 13:05-0400 Systolic blood oaxkqoaz723 mm[Hg]Merlene Larson MD Work Phone: 1(462)041-[address] [place], [place] 2968506-06-2024 13:09-0400 Body nywjjq782.48 cmChillicothe Va [facility] Center06-06-2024 13:09-0400Body mass index (BMI) [Ratio]37.8 kg/l2KbjftibtgChillicothe Va Medical Center06-06-2024 13:09-0400Body duusnu33.89 kgChillicothe Va Medical Center06-06-2024 13:09-0400Diastolic blood yilvneei27 mm[Hg][facility] 10-15-2023 13:09-0400Heart rate87 /[facility] 10-15-2023 13:09-0400Systolic blood cuftzqlv836 mm[Hg][facility]05-11-2023 15:00-0400Body .75 cmMerlene Larson Other [employer] Other 05-11-2023 15:00-0400Body mass index (BMI) [Ratio] 37.97 kg/c4MejxiwMerlene Larson Other [employer] Other 05-11-2023 15:00-0400Body ynhcao16.71 kgMerlene Larson Other [employer] Other 05-11-2023 15:00-0400Diastolic blood mm[Hg] Merlene Neo Other [employer] Other 05-11-2023 15:00-8107GqZ6% (BldA) [Mass fraction]97 % Merlene Larson Other [employer] Other 05-11-2023 15:00-0400Systolic blood msmvxedo296 mm[Hg] Merlene Larson Other [employer] Other Encounters Encounter DateEncounter TypeCare ProviderFacilityStart: 03-12-2025 End: 20-87-5461Kcoltqnz ReferredErichalbaro Alexandra Shah [facility] 250Start: 03-12-2025 End: 60-90-9349jjbqlqqudwLkkhvi E Braun MD Work Phone: -[facility] ClydeStart: 03-12-2025 End: 41-70-0682Kjklwks encounter procedureGabby Shah [facility] TRAD[facility] [place] Work Phone: Start: 12-14-2024 End: 36-67-9672Ffojsnawv Result EncounterJaimie AGUILAR Work Phone: noms External Department UnsolicitedStart: 12-14-2024 End: 54-97-9812Aqkckfehm Result EncounterJaimie AGUILAR Work Phone: noms External Department UnsolicitedStart: 11-17-2024 End: 12-02-9286tmjavpkwxdFxlmbd E Braun MD Work Phone: [facility] Work Phone: Start: 11-17-2024 End: 71-36-0207Lyjovkf encounter procedureMerlene Larson MD-[facility] Work Phone: Start: 10-15-2023 End: 66-36-8307fusqklnvgoJddgvdyvdVeterans Health Administration Work Phone: Start: 10-15-2023 End: 44-63-1366Zlxtehj [facility] Work Phone: Start: 42-83-7772Fdf-patient / Non-visitFirelands [facility] Work Phone: Start: 09-04-2023 End: 76-20-4244tbkztqhmmnMdprqnazfVeterans Health Administration Work Phone: Start: 09-04-2023 End: 80-96-4317Tcqkeef encounter procedureD[facility] Work Phone: Start: 08-29-9866Eyy-patient / Non-visitD[facility] Work Phone: Start: 06-26-2023 End: 77-60-1199nthzxdymtzPTQKPFQ J MEYERNot AvailableStart: 39-40-8691Tvzkikxsy encounterJr. Jhon Acuna DO Work Phone: [facility] ORTHOPAEDICSComment on above:PO Questions Start: 06-05-2023 End: 15-82-0367ozblhjanafQRWTURF MEYERNot AvailableStart: 06-03-2023 End: 06-10-2929opzzqtdwpdZB., JHON Bear AvailableStart: 06-01-2023 End: 98-67-2718xghvexxjliDUZYTIG J MEYERNot AvailableStart: 05-18-2023 End: 27-28-5623Riouyjfte Result EncounterJaimie AGUILAR Work Phone: noms External Department UnsolicitedStart: 05-18-2023 End: 73-94-0944Faanwyeln Result EncounterJaimie AGUILAR Work Phone: NOV[facility] External Department UnsolicitedStart: 04-23-2023 End: 71-05-5466witvltjdjpZZH LISYEYNot AvailableStart: 02-16-2023 End: 45-78-4874kotndmhdudDbkkpq Larson Other [employer] Other Start: 47-32-8616Chbnhruam encounterMarcia Sylvester Garcia Medical ClinicStart: 01-30-2023 End: 37-60-3479nutguybcygZcmlrm Larson Other [facility] [employer] Other Start: 58-58-2702Zfjgqetos encounterMarcia Sylvester Garcia Medical ClinicStart: 26-51-0665Tyeie Moose Shabazz PA Work Phone: noms ORTHOPAEDICSStart: 12-08-2022 End: 31-87-6211trufqonnewKdvcot Larson Other [facility] [employer] Other Start: 49-17-6890Kmdeorwfi encounterMarcia Sylvester Garcia Medical ClinicStart: 09-26-2022 End: 05-14-9817paiysnzyrdWbkgrk Larson Other [facility] [employer] Other Start: 49-32-1068Mhrdgudxm encounterMarcia Sylvester Garcia Medical ClinicStart: 46-45-4031hafgqjalhfVZ MERLENE LARSONFacility:I2Uqnng: 09-18-2022 End: 33-02-3267evtugtaerqWomaiy Larson Other [employer] Other Start: 88-33-2759Xcstcrz encounter procedureMarcia Sylvester Garcia Medical ClinicStart: 07-10-2022 End: 34-66-3170mfrmdpgpitHpdvpl Larson Other [employer] Other Start: 82-30-9156Hmcufbgrw encounterMerlene Garcia [facility] ClinicStart: 07-05-2022 End: 01-90-5790pvuhchasbsAIIVJKM D KATKOFacility:B8Qfqvc: 06-27-2022 End: 74-00-8157hnzpcoxboqHtdxng Braun Other [employer] Other Start: 16-28-0868Jafuycpsy encounterMartrinidad Garcia [facility] ClinicStart: 06-18-2022 End: 47-67-3579irrpjorlhgVrvyck Braun Other [employer] Other Start: 58-58-3560Ljpvswera encounterMerlene Garcia [facility] ClinicStart: 92-14-1908Qoxnj health examinationMerlene Larson Other [employer] Other Start: 10-29-2021 End: 89-14-1424tysyyvkudgTC MARCIA E BRAUNFacility:A8Gavcr: 05-01-2021 End: 30-24-1898Nnmvdbgadinqc examination normalMerlene Larson Other [employer] Other Start: 08-03-2018 End: 83-06-3232Svvczhk encounter procedureDEFAULT PHYSICIANFacility:[facility] Procedures DateProcedureProcedure DetailPerforming ClinicianStart: 27-22-4395IL TOMOSYNTHESIS SCREENING BIJaimie AGUILAR Work Phone: Start: 11-72-8131KS DEXA AXIAL SKELETONJaimie AGUILAR Work Phone: Start: 03-23-2014 End: 15-12-0059Bcterxgcu mammographyEllycia Larson Other Start: 02-23-2013 End: 17-31-0609Bgzmnqa examination of patientMerlene Larson Other End: 72-26-5351Bdovcwyhbp screeningMarcia Larson Other End: 99-41-5888Ljsxruzwh for malignant neoplasm of breastMarcia Larson Other Screening for malignant neoplasm of breastMarcia Larson Other End: 21-84-4985Jqprelibg for osteoporosisMarcia Larson Other End: 32-02-1465Wgpec screeningMarcia Larson Other Plan of Treatment DateCare ActivityDetailAuthorStart: 04-25-2025 End: 57-32-1441Ganpsru encounter vsjktoxkj72/16/2025 1:00 PM EST Office Visit [facility] NIN [address] [place] [address] Jaimie Ross PA [address] [place] Samantha OBGYNStart: 44-52-7833HywdwUniversity Hospitals Parma Medical Centertart: 49-80-8220Veqbjclj identified in Urine by CultureUrine [facility] Medical Centertart: 01-09-2025 Influenza vaccinationInfluenza Vaccine (#1)[facility] HealthcareStart: 08-28-2024 Screening for malignant neoplasm of colonNOMS HealthcareStart: 04-25-2024 End: 16-79-6747Ebrgeww encounter vsjkvuqgq28/16/2024 1:00 PM EST Office Visit [facility] OB [address] [place] [address] Jaimie Ross PA [address] [place], [place] [address] [facility] BCP OBStart: 06-26-2023 End: 04-70-9609Puxzuif encounter fanoednww08/16/2024 9:30 AM EST Office Visit [facility] [address] [facility] [address] [place] [address] Aguilar Shabazz PA [address] [place] [address] [facility] CI ORTHOPAEDICSStart: 10-30-2012 Pneumococcal Vaccine: 65+ Years (1 - PCV)Pneumococcal Vaccine: 65+ Years (1 - PCV)[facility] HealthcareStart: 80-90-4535Iggncabkeotz Vaccine: 65+ Years (1 of 1 - PCV)Pneumococcal Vaccine: 65+ Years (1 of 1 - PCV)[facility] HealthcareStart: 07-18-8889Zmnhmuits for malignant neoplasm of colonNOMS HealthcareComprehensive metabolic 2000 panel - Serum or PlasmaChillicothe Va Medical CenterMG Breast - bilateral ScreeningChillicothe Va Medical CenterPatient Education Exercises for sciatic painWhite Hospital Work Phone: [facility] Immunizations Immunization DateImmunizationNotesCare FduuhlcnQmovxpww17-67-4057uxpjrgdpa virus vaccine, unspecified formulationJaimie AGUILAR Work Phone: [facility] CenterBfbpzgkevb95-60-2310WEPSC-52 Vaccine Pfizer - Documentation Purposes OnlyMerlene Larson Other [facility]10-18-2021COVID-19 Vaccine Pfizer - Documentation Purposes OnlyMerlene Larson Other [facility]03-02-2021COVID-19 Vaccine Pfizer - Documentation Purposes OnlyMerlene Larson Other [facility]02-09-2021COVID-19 Vaccine Pfizer - Documentation Purposes OnlyMerlene Larson Other [facility]12-01-2015 pneumococcal conjugate vaccine, 13 valentMarcia Neo Other [facility]12-01-2015 pneumococcal Conjugate, unspecified formulation; Translations: [Need for prophylactic vaccination against Streptococcus pneumoniae (pneumococcus)]Merlene Larson Other [employer] Other 10-933492-47-2862iqzlcfi and diphtheria toxoids, adsorbed, preservative free, for adult use (5 Lf of tetanus toxoid and 2 Lf of diphtheria toxoid)Merlene Neo Other [facility]06-09-2009 pneumococcal polysaccharide vaccine, 23 Letha Larson Other [facility] Payers DatePayer CategoryPayerPolicy [id number]-[id number] Health [id number] 2013Medicare [id number] [id number] [id number] [id number] [id number] 2.16840.1.840738.3.57[id number] 2.16.840.1.191354.3.57[id number] 2.16.840.1.193334.3.57[id number] 2.16840.1.573503.3.57[id number] 2.16.840.1.735355.3.57[id number] 2.16.840.1.876477.3.57[id number] 2.16.840.1.632238.3.57[id number] 2.16.840.1.903652.3.57[id number] 2.16.840.1.232098.3.[id number] 2.16.840.1.455105.3.579.2.531 Social History DateTypeDetailFacilityStart: 04-23-2023 End: 26-28-6891Xbv Assigned At [facility] HealthcareStart: 06-01-2023 End: 25-18-8063Gkjovpr smoking status NHISNever smoked tobaccoNOMS Healthcare Start: 90-38-2738Vbyrdrz use and exposureSmokeless tobacco non-userNORI HealthcareStart: 04-23-2023 End: 45-81-6121Cohtayn intakeCurrent drinker of alcohol (finding)[facility] Start: 06-05-2023 End: 78-23-8069Sqzixdy intakeNOMS HealthcareHow often to you have a drink containing alcohol?Monthly or lessNOMS HealthcareStart: 98-93-3927Lnhysjv Number of DrinksNot on fileNORI HealthcareStart: 73-43-7771Elqwzcb CommentMonthly or lessNOMS HealthcareStart: 99-27-1740Axk Assigned At [facility] Healthcare Start: 81-57-9430Ecmxfo identityIdentifies as female gender (finding)[facility] HealthcareStart: 01-26-9143Lixnai orientationHeterosexual (finding)[facility] CenterTobacco smoking status NHISUnknown if ever smokedWhite Hospital Work Phone: SexFemale (finding)[facility] Medical Equipment Procedure CodeEquipment CodeEquipment Original TextEquipment IdentifierDates [id number], [id number], [id number]: 25-19-6784Xcu Needle, Diabetic (Comfort Ez Pen [place]) 32 gauge x 5/32 needleStart: 13-73-5105Wkh Needle, Diabetic (Comfort Ez Pen [place]) 32 gauge x 5/32 needleStart: 08-12-2023 End: 08-53-9836EusnswnMiwuu: 67-68-7177Evs Needle, Diabetic (Comfort Ez Pen [place]) 32 gauge x 5/32 needleStart: 34-48-8278AsyglyiNnhli: 10-02-2023 End: 30-09-1765FlzxqwvPiqkk: 10-02-2023 End: 98-73-5471Brj Needle, Diabetic (Comfort Ez Pen [place]) 32 gauge x 5/32 needleStart: 08-12-2023 End: 43-61-4104Keejw Sugar Diagnostic (Accu-Chek Juanis Plus Test Strp) strip Start: 41-19-2133Riuzepz 28 gauge miscStart: 82-54-1501Sni Needle, Diabetic (Bd Keke 2nd Gen Pen Needle) 32 gauge x 5/32 needleStart: 75-57-0180Bimtt Sugar Diagnostic (Accu-Chek Juanis Plus Test Strp) stripStart: 04-01-2024 End: 33-05-8485Xclti Sugar Diagnostic (Accu-Chek Juanis Plus Test Strp) strip Start: 04-02-2024 End: 24-81-4239Lnzln Sugar Diagnostic (Accu-Chek Juanis Plus Test Strp) strip Start: 04-04-2024 End: 44-64-8638Igtkvxd 28 gauge miscStart: 10-02-2023 End: 73-28-5533Jjkrwzc 28 gauge miscStart: 10-02-2023 End: 63-72-3318Vgv Needle, Diabetic (Comfort Ez Pen [place]) 32 gauge x 5/32 needleStart: 08-12-2023 End: 49-36-7103Btf Needle, Diabetic (Comfort Ez Pen [place]) 32 gauge x 5/32 needleStart: 08-13-2023 End: 94-41-3189Tuoiv Sugar Diagnostic (Accu-Chek Juanis Plus Test Strp) strip Start: 24-07-3188Oloswgh 28 gauge miscStart: 24-92-6371Cub Needle, Diabetic (Bd Keke 2nd Gen Pen Needle) 32 gauge x 5/32 needleStart: 02-32-7036Bvysk Sugar Diagnostic (Accu-Chek Juanis Plus Test Strp) stripStart: 04-01-2024 End: 67-15-8908Cbpif Sugar Diagnostic (Accu-Chek Juanis Plus Test Strp) strip Start: 04-02-2024 End: 95-30-0002Lasmz Sugar Diagnostic (Accu-Chek Juanis Plus Test Strp) strip Start: 04-04-2024 End: 63-48-2598Ubzover 28 gauge miscStart: 10-02-2023 End: 68-40-9146Rgjdfwn 28 gauge miscStart: 10-02-2023 End: 39-61-8850Bhjpguv 28 gauge miscStart: 10-02-2023 End: 98-36-5868Gge Needle, Diabetic (Comfort Ez Pen [place]) 32 gauge x 5/32 needleStart: 08-12-2023 End: 56-54-8103Hoe Needle, Diabetic (Comfort Ez Pen [place]) 32 gauge x 5/32 needleStart: 08-13-2023 End: 05-59-6464Tkdmd Sugar Diagnostic (Accu-Chek Juanis Plus Test Strp) strip Start: 05-06-6930Mssielm 28 gauge miscStart: 87-39-1292Rdy Needle, Diabetic (Bd Keke 2nd Gen Pen Needle) 32 gauge x 5/32 needleStart: 34-48-9715Gkpge Sugar Diagnostic (Accu-Chek Juanis Plus Test Strp) stripStart: 04-01-2024 End: 66-28-2175Ghvkc Sugar Diagnostic (Accu-Chek Juanis Plus Test Strp) strip Start: 04-02-2024 End: 21-87-9674Bjmtn Sugar Diagnostic (Accu-Chek Juanis Plus Test Strp) strip Start: 04-04-2024 End: 76-58-4143Rxbifor 28 gauge miscStart: 10-02-2023 End: 87-41-7471Ogfpbfa 28 gauge miscStart: 10-02-2023 End: 28-94-0727Fqgeyek 28 gauge miscStart: 10-02-2023 End: 36-68-4485Nqa Needle, Diabetic (Comfort Ez Pen [place]) 32 gauge x 5/32 needleStart: 08-12-2023 End: 91-18-5996Gac Needle, Diabetic (Comfort Ez Pen [place]) 32 gauge x 5/32 needleStart: 08-13-2023 End: 05-09-2024 Clinical Notes 09-18-2022 to 03-12-2025 Note Date & VtlnNidsIcvrtemw40-05-1556 Evaluation note* Diagnosis Onset Date Resolution Status Admit Date UTI (urinary tract infection) acuteNovember 2024 11:13am [facility] Work Phone: 1(753) 104-163602-07-2024 Telephone encounter Note* Telephone Encounter - Ronit Yost - 06/17/2023 11:38 AM EST Pt called back and went over the instructions again for her . She verbalized understanding. [facility] Rstipjsads06-91-8675 Miscellaneous Notes* Telephone Encounter - Ronit Yost - 06/17/2023 11:38 AM EST Pt called back and went over the instructions again for her . She verbalized understanding. * Telephone Encounter - Ronit Yost - 06/17/2023 10:35 AM EST Called pt and left vm , explained the instructions below and told her to call if she has any questions about this. * Telephone Encounter - Ronit Yost - 06/17/2023 10:09 AM EST Pt called and stated she had Rt hand RF trig sx on 06/11/23 and wondered if she could get a manicure now, and get faroese put back on? She has an appt on Thursday and just wanted to make sure. Her call back [phone] documented in this encounterMissouri Rehabilitation [id number] Telephone encounter Note* Telephone Encounter - Ronit Yost - 06/17/2023 10:35 AM EST Called pt and left vm , explained the instructions below and told her to call if she has any questions about this. [id number] Telephone encounter Note* Telephone Encounter - Ronit Yost - 06/17/2023 10:09 AM EST Pt called and stated she had Rt hand RF trig sx on 06/11/23 and wondered if she could get a manicure now, and get faroese put back on? She has an appt on Thursday and just wanted to make sure. Her call back [phone] [phone] Evaluation [facility]* Encounter Date Diagnosis Assessment Notes Treatment Notes Treatment Clinical Notes September, Medicare annual wellness visit, subsequent (ICD-10 - Z00.00) Personalized health advice was given to the beneficiary including a written plan for screenings discussed and provided. Advanced care planning reviewed and/or information given as requested. Additional counseling was provided here today in regards to diabetes. The above visit was done by Dr. Larson.Document reviewed and amended by provider signed below. September,iabetes mellitus with hyperglycemia (ICD-10 - E11.65)Goal: Maintain A1c below 7.0% by being compliant with prescribed medications, diet & exercise plan prior to f/u visit. Laboratory results were reviewed with patient. STATUS:continous September,Essential hypertension (ICD-10 - I10)GOAL: Maintain BP < 140/90. STATUS: achieved. TIME FRAME: Lifetime goal. Barriers: Non- identifed. Continue current regimen and a low Na+ diet. Regular CV exercise also encouraged. 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 - due for recheck labs September,yslipidemia (ICD-10 - E78.5)Check lipid panel - chronic statin use September,Encounter for screening mammogram for malignant neoplasm of breast (ICD-10 - Z12.31)due in October [employer] Other Evaluation noteNo InformationNort [employer] Other Evaluation noteNo assessment information available [facility] Work Phone: Evaluation note* Diagnosis Onset Date Resolution Status Adult hypothyroidism acuteEssential (primary) hypertensionacuteHyperlipidemia, unspecifiedacute Medicare annual wellness visit, subsequentacuteType 2 diabetes mellitus with hyperglycemiaacute [facility] Work Phone: Evaluation note* Diagnosis Onset Date Resolution Status Admit Date Adult hypothyroidism acuteJuly 2024 12:59pmEssential (primary) hypertensionacuteJuly 2024 12:59pmHyperlipidemia, unspecifiedacuteJuly 2024 12:59pmMedicare annual wellness visit, subsequentacuteJuly 2024 12:59pmScreening mammogram for breast canceracuteJuly 2024 12:59pm [facility] Work Phone: History general Narrative - Reported* Type Description Date Medical History Diabetes mellitus with hyperglyc emia Medical HistoryDyslipidemiaMedical HistoryOsteopeniaMedical HistoryEssential hypertensionMedical HistoryPost-menopausalMedical HistoryAdult hypothyroidism Surgical [id number] HistoryC-SECTIONSurgical [id number] Hospitalization HistorySEE SURGICAL HX [place] Other Reason for referral (narrative)No reason for referral information availableWhite Hospital Work Phone: Summary Purpose Family History No Family History Records Found Relationship Condition Age at Onset Recorded Date/T han brother Malignant neoplasm Unknown DeceasedUnknownHeart diseaseUnknownfatherDeceasedUnknownHypertensionUnknownNot SpecifiedDeceasedUnknownAlzheimer's dementiaUnknownsisterMalignant neoplasm Unknown Relationship Condition Age at Onset Recorded Date/T han brother Malignant neoplasm Unknown DeceasedUnknownHeart diseaseUnknownfatherDeceasedUnknownHypertensionUnknown motherDeceasedUnknownAlzheimer's dementiaUnknownsisterMalignant neoplasmUnknown Advance Directives No Advanced Directives Records Found Advance Directive Response Recorded Date/ Time Advance Directives No September 03 11:56am Advance Directive Response Recorded Date/ Time Advance Directives No September 03 10:56am Chief Complaint and Reason for Visit Chief Complaint Amb Documentation Bring in urine sample Chief Complaint Amb Documentation Bring in urine sample Amb Documentation wellnessReason for VisitAdult hypothyroidism Essential (primary) hypertension Hyperlipidemia, unspecified Medicare annual wellness visit, subsequent Type 2 diabetes mellitus with hyperglycemia Chief Complaint Admit Date wellness November 17, 2024 12:5 9pm Reason for Visit Admit Date Adult hypothyroidism November 17, 2024 12: 59pm Essential (primary) hypertension November 172024 12:59pm Hyperlipidemia, unspecified November 17, 2 025 12:59pm Medicare annual wellness visit, subseque nt November 17, 2024 12:59pm Screening mammogram for breast cancer Ju 2024 12:59pm Chief Complaint Admit Date Dysuria March 12, 2025 1 1:13am Reason for Visit Admit Date UTI (urinary tract infection) March 122024 11:13am Additional Source Comments INFORMATION SOURCE (unrecogn ized section and content) DATE CREATED AUTHOR 08/07/2018 [facility] DATE CREATED AUTHOR AUTHOR'S ORGANIZ ATION 09/24/2022 [facility] DATE CREATED AUTHOR AUTHOR'S ORGANIZ ATION 06/28/2023 [facility] EPIC DATE CREATED AUTHOR AUTHOR'S ORGANIZ ATION 03/18/2025 [facility] REASON FOR VISIT (unrecogniz ed section and content) ReasonOnset DateCommentsPO Ltitfoiwd73/07/2024 Care Teams (unrecognized sec tion and content) Team Status: Active Member Role Status Dates Merlene Larson MD Primary Care Provider Active Team Status: Inactive Member Role Status Dates Merlene Larson MD Primary Care Provider Active Start: November 17, 2024 End: November 17, 2024Merlene Larson MDAttending ProviderActiveStart: November 17, 2024 End: November 17, 2024Team MemberRelationshipSpecialtyStart DateEnd Date Merlene Larson MD [address] [place] [id number] PCP - GeneralFamily Renxltay92/14/23Team MemberRelationshipSpecialtyStart Date End Date Merlene Larson MD [address] [place] [id number] [facility]04/23/23 Team Status: Active Member Role Status Dates Merlene Larson MD Primary Care Provider Active Start: July 20, 2023 Tessie Anderson Meri ProviderActiveStart: July 20, 2023 Team Status: Inactive Member Role Status Dates Merlene Larson MD Primary Care Provide r, Attending Provider Active Start: September 04, 2023 End: September 04, 2023 Team Status: Active Member Role Status Dates Merlene Larson MD Primary Care Provider Active Start: October 02, 2023 Nella Mike Acuna ProviderActiveStart: October 02, 2023 Team Status: Inactive Member Role Status Dates Merlene Larson MD Primary Care Provide r, Attending Provider Active Start: October 15, 2023 End: October 15, 2023Team MemberRelationshipSpecialtyStart DateEnd Date Merlene Larson MD [facility]04/23/23Team MemberRelationshipSpecialtyStart Date End Date Merlene Larson MD [facility]04/23/23 Team Status: Active Member Role/Relationship Status Dates Merlene Larson MD Primary Care Provider Active Team Status: Inactive Member Role/Relationship Status Dates Merlene Larson MD Primary Care Provider Active Start: March 12, 2025 End: March 12Dayton Freitas ProviderActiveStart: March 12, 2025 End: March 12, 2025 Team Status: Inactive Member Role/Relationship Status Dates Merlene Larson MD Primary Care Provider Active Start: March 12, 2025 End: March 12Dayton Freitas ProviderActiveStart: March 12, 2025 End: March 12, 2025 Team Status: Inactive Member Role/Relationship Status Dates Gabby Morris APRN Attending Provider Active S tart: March 12, 2025 End: March 12, 2025 Goals (unrecognized section and content) Goals may [...] BE BASED ON THE PRIMARY CLINICAL RECORDS. [facility]. provides no warranty or guarantee of the accuracy or completeness of information in this document.
== END 2025-05-08 21:22 | disposition home or self-care (01) ==
LOC: LAB 21:21
PROVIDERS: PCP Family Medicine; Visit Provider Physician Assistant
DX: Z01.419 Encounter for gynecological examination (general) (routine) without abnormal findings (principal); Z90.710 Acquired absence of both cervix and uterus
CPT/HCPCS: 88175